=== PATIENT | female | born 1945 | race Caucasian/White ===

== ENCOUNTER 2018-10-28 04:48 | Inpatient (IN) ==
--- NOTE | 2018-10-28 04:57 | Emergency Department Note ---
Disposition Clinical Impression: Hypoxia Congestive heart failure Qualifiers: Heart failure type: unspecified Heart failure chronicity: acute Qualified Cod e(s): I50.9 - Heart failure, unspecified Disposition: Admitted As Inpatient Condition: Fair Forms: ED Satisfaction Letter General Adult HPI - General Chief complaint: ED Shortness of Breath/Dyspnea Stated complaint: low oxygen Time Seen by Provider: 10/28/18 04:53 Source: patient, EMS Limitations: no limitations Nursing Notes Reviewed: Yes Vital Signs Reviewed: Yes - History of Present Illness HPI Narrative: Patient is a 72-year-old female with past medical history including COPD, not on oxygen at home, coronary artery disease status post CABG, CHF, hypertension, history of CVA with right-sided paralysis, [place] filter, presenting to the emergency department with chief complaint of hypoxia. Patient states she was in her usual state of health. She states she typically has night sweats. This morning, her nursing staff at her [place] [facility] drenched in sweat. Oxygen saturation there was 77%. They placed the patient on 4 L of oxygen with oxygen saturation improving to 85%. EMS states patient was 88% on 4 L of oxygen here in the patient denies any shortness of breath, chest pain, lightheadedness, productive cough, fevers or chills, abdominal pain, nausea or vomiting. She states she usually has swelling in her legs. She has no acute complaints at this time. Pain Scale: 0 - Related Data Home Medications Medication Instructions Recorded Confirmed Acetaminophen [Tylenol] 325 mg PO Q4HR 03/28/15 03/28/15 Amlodipine Besylate/Benazepril 1 each PO DAILY 03/28/15 03/28/15 [Lotrel 5-10 mg Capsule] Aspirin 81 mg PO DAILY 03/28/15 03/28/15 Atorvastatin [Lipitor] 40 mg PO HS 03/28/15 03/28/15 Baclofen [Lioresal] 10 mg PO QID 03/28/15 03/28/15 Calcium Carbonate [Tums] 500 mg PO BID 03/28/15 03/28/15 Clopidogrel [Plavix] 75 mg PO DAILY 03/28/15 03/28/15 Dextromethorphan HBr/Quinidine 1 each PO BID 03/28/15 03/28/15 [Nuedexta 20-10 mg Capsule] Diltiazem HCl [Diltiazem 24Hr Cd] 180 mg PO DAILY 03/28/15 03/28/15 Ergocalciferol (VITAMIN D2) 50,000 unit PO QMONTH 03/28/15 03/28/15 [Vitamin D2 (50,000 UNIT)] Fenofibrate [Lofibra] 160 mg PO DAILY 03/28/15 03/28/15 Folic Acid 1 mg PO DAILY 03/28/15 03/28/15 Furosemide [Lasix] 60 mg PO DAILY 03/28/15 03/28/15 MOM Conc [Milk of Magnesia Conc] 30 ml PO DAILY PRN 03/28/15 03/28/15 Metformin HCl [Fortamet] 2,000 mg PO HS 03/28/15 03/28/15 Metoprolol XL (24 HR) Succ [Toprol 100 mg PO DAILY 03/28/15 03/28/15 XL] Mirabegron [Myrbetriq] 50 mg PO DAILY 03/28/15 03/28/15 Omeprazole [PriLOSEC] 20 mg PO DAILY 03/28/15 03/28/15 OxyCODONE/APAP 5/325 [Percocet 1 each PO BID 03/28/15 03/28/15 5/325] Oxybutynin Chloride [Ditropan Xl] 10 mg PO DAILY 03/28/15 03/28/15 Phenytoin ER [Dilantin] 400 mg PO HS 03/28/15 03/28/15 Potassium Chloride 20 meq PO DAILY 03/28/15 03/28/15 RisperiDONE [RisperDAL] 0.25 mg PO DAILY 03/28/15 03/28/15 [place] Oil/[place]-3 Fatty Acids 1,000 mg PO BID 03/28/15 03/28/15 [Fish Oil 500 mg Softgel] Sennosides [Senna] 8.6 mg PO DAILY PRN 03/28/15 03/28/15 Allergies Allergy/AdvReac Type Severity Reaction Status Date / Time heparin AdvReac Unknown See Verified 10/28/18 06:01 Comments All systems ED: reviewed and negative except as stated. Review of Systems: As Per HPI Constitutional: Denies: fever, chills Cardiovascular: Denies: chest pain, palpitations Respiratory: Denies: cough, dyspnea Gastrointestinal: Denies: abdominal pain, nausea, vomiting Genitourinary: Denies: dysuria, hematuria Musculoskeletal: Denies: back pain Neurological: Denies: headache, weakness, paresthesias Past Medical History - Past Medical History Attestation: Yes The following information was validated with the patient. Source: patient Medical history: Reports: CHF, coronary artery disease, CVA, DVT, diabetes, hypertension, pulmonary embolus, seizures, other Surgical history: Reports: hysterectomy, other Psychiatric history: Reports: no psych history - Social History Smoking Status: Never smoker Smokeless Tobacco Status: No Alcohol use: Reports: none Drug use: Reports: none Physical Exam - General Limitations: no limitations General appearance: alert, in no apparent distress - Head Head exam: atraumatic, normocephalic - Eye Eye exam: Present: normal appearance, EOMI - ENT ENT exam: normal exam, mucous membranes moist - Neck Neck exam: Present: normal inspection, trachea midline - Chest Chest inspection: Present: normal inspection, symmetric chest wall rise - Respiratory Respiratory exam: Present: other (Patient has diminished breath sounds bilaterally with crackles at bilateral bases. Some conversational dyspnea. Oxygen per nasal cannula) - Cardiovascular Cardiovascular exam: Present: regular rate, normal rhythm, other (bilateral radial pulses palpable and equal) - Abdominal Exam Abdominal exam: Present: soft, Non-Tender. Absent: distention, guarding, rebound, rigidity - Extremities Exam Extremities exam: Present: normal capillary refill, other (2+ bilateral lower extremity swelling to the knee, no calf tenderness) - Skin Skin exam: Present: warm, other (Wet sweaty hair). Absent: pallor Course Vital Signs Temperature 98.4 F 10/28/18 04:49 Pulse Rate 77 10/28/18 04:49 Respiratory Rate 16 10/28/18 04:49 Blood Pressure 142/72 10/28/18 04:49 O2 Sat by Pulse Oximetry 92 10/28/18 04:49 Temperature 98.4 F 10/28/18 04:49 Pulse Rate 72 10/28/18 05:30 Respiratory Rate 16 10/28/18 05:30 Blood Pressure 171/79 10/28/18 05:30 O2 Sat by Pulse Oximetry 94 10/28/18 05:30 Oxygen Delivery Oxygen Delivery Nasal Cannula Medical Decision Making - [facility] Narrative Medical decision making narrative: Patient is presenting with hypoxia from her [place] [facility]. She has no acute complaints at this time. Nontoxic appearing, afebrile. She was 77% on room air at the nursing facility. Here, she was 85% on room air. Place the patient on 3 L of oxygen per nasal cannula with oxygen saturation 91-93%. Patient appears fluid overloaded. We will obtain chest x-ray, CBC, BMP, troponin, BNP. No acute changes on EKG. 05:45 Patient states she is doing well and has no acute complaints at this time. Chest x-ray imaging results reviewed. Findings are consistent with congestive heart failure, cardiomegaly. BNP is elevated at 439. Troponin is less than 0.03. We will give her a dose of 40 mg IV Lasix. Hospitalist has been paged for admission for congestive heart failure exacerbation as well as hypoxia requiring oxygen per nasal cannula. 06:05 Discussed with hospitalist, Dr. Simon, who accepts admission. - Medical Records Medical records reviewed: Yes I reviewed the patient's medical records. - Lab Data Lab results reviewed: Yes I reviewed the patient's lab results. Result diagrams: 10/28/18 05:00 10/28/18 05:00 Lab Results 10/28/18 10/28/18 10/28/18 Range/Units 05:00 05:00 05:00 WBC 12.4 H (4.3-11.1) K/mcL RBC 4.13 (3.82-4.97) M/mcL Hgb 13.0 (11.5-15.4) g/dL Hct 41.7 (35.3-44.9) % MCV 101.0 H (83.0-100.0) fL MCH 31.5 (28.0-33.3) pg MCHC 31.2 L (31.6-35.5) g/dL RDW 12.8 (11.5-14.5) % Plt Count 331 (140-400) K/mcL MPV 9.3 L (9.4-12.4) fL Immature Gran % 0.6 (0-4) % Seg Neutrophils % 87.8 % Lymphocytes % 6.5 % Monocytes % 4.8 % Eosinophils % 0.1 % Basophils % 0.2 % Neutrophils # 10.9 H (1.6-8.9) K/mcL Lymphocytes # 0.8 (0.6-4.6) K/mcL Monocytes # 0.6 (0.0-1.3) K/mcL Eosinophils # 0.0 (0.0-0.6) K/mcL Basophils # 0.0 (0.0-0.2) K/mcL Sodium 141 (136-145) mEq/L Potassium 4.9 (3.5-5.1) mEq/L Chloride 104 (98-107) mEq/L Carbon Dioxide 30 H (23-29) mEq/L BUN 19 (8-23) mg/dL Creatinine 0.46 L (0.60-1.20) mg/dL Est GFR ( Amer) > 60 (> 60) Est GFR (Non-Af Amer) > 60 (> 60) BUN/Creatinine Ratio 41 H (6-26) Glucose 171 H (70-105) mg/dL Calculated Osmolality 298 (280-300) Calcium 9.1 (8.6-10.3) mg/dL Troponin I < 0.03 (< 0.04) ng/mL B-Natriuretic Peptide 439 H (Less than 100) pg/mL - Radiology Data Radiology results reviewed: Yes I reviewed the patient's radiology results. Chest X-Ray 10/28/18 04:53 IMPRESSION: Findings consistent with congestive heart failure. D/ / Bruno De La Cruz MD / Bruno De La Cruz MD Interpreting Provider: Bruno De La Cruz MD - EKG Data EKG #1 EKG attestation: Yes I reviewed and interpreted this EKG. EKG results narrative: EKG obtained at 0 456 shows sinus rhythm with heart rate 75, QRS duration 88, QTc 453. Normal CO interval area and no ST elevation or depression. Compared to old EKG on March 14 2015 which shows no acute changes.
[2018-10-28 05:15] LABS: Basophils % 0.2 %; Eosinophils % 0.1 %; Hematocrit 41.7 % (35.3-44.9); Immature Granulocytes % 0.6 % (0-4); Lymphocytes # 0.8 K/mcL (0.6-4.6); Lymphocytes % 6.5 %; Mean Corpuscular HGB Conc 31.2 g/dL (31.6-35.5); Mean Corpuscular Hemoglobin 31.5 pg (28.0-33.3); Mean Platelet Volume 9.3 fL (9.4-12.4); Monocytes # 0.6 K/mcL (0.0-1.3); Monocytes % 4.8 %; Neutrophils # 10.9 K/mcL (1.6-8.9); Platelet Count 331 K/mcL (140-400); Red Blood Count 4.13 M/mcL (3.82-4.97); Red Cell Distribution Width 12.8 % (11.5-14.5); Segmented Neutrophils % 87.8 %
[2018-10-28 05:34] LABS: BUN/Creatinine Ratio 41 (6-26); Blood Urea Nitrogen 19 mg/dL (8-23); Calcium 9.1 mg/dL (8.6-10.3); Carbon Dioxide 30 mEq/L (23-29); Chloride 104 mEq/L (98-107); Glucose 171 mg/dL (70-105); Osmolality,Calculated 298 (280-300); Potassium 4.9 mEq/L (3.5-5.1); Sodium 141 mEq/L (136-145); eGFR For Non-African Americans > 60 (> 60)
[2018-10-28 05:35] LABS: Troponin I < 0.03 ng/mL (< 0.04)
[2018-10-28] MEDS ORDERED: Furosemide 40 MG/4 ML VIAL IVP ONE (05:45)
--- NOTE | 2018-10-28 06:03 | Emergency Department Note ---
Disposition Clinical Impression: Hypoxia Congestive heart failure Qualifiers: Heart failure type: unspecified Heart failure chronicity: acute Qualified Cod e(s): I50.9 - Heart failure, unspecified Disposition: Admitted As Inpatient Condition: Fair Referrals: NONE,PCP [Primary Care Provider] - Forms: ED Satisfaction Letter General Adult HPI - General Chief complaint: ED Shortness of Breath/Dyspnea Stated complaint: low oxygen Time Seen by Provider: 10/28/18 04:53 Source: patient, EMS Limitations: no limitations Nursing Notes Reviewed: Yes Vital Signs Reviewed: Yes - History of Present Illness Pain Scale: 0 - Related Data Home Medications Medication Instructions Recorded Confirmed Acetaminophen [Tylenol] 325 mg PO Q4HR 03/28/15 03/28/15 Amlodipine Besylate/Benazepril 1 each PO DAILY 03/28/15 03/28/15 [Lotrel 5-10 mg Capsule] Aspirin 81 mg PO DAILY 03/28/15 03/28/15 Atorvastatin [Lipitor] 40 mg PO HS 03/28/15 03/28/15 Baclofen [Lioresal] 10 mg PO QID 03/28/15 03/28/15 Calcium Carbonate [Tums] 500 mg PO BID 03/28/15 03/28/15 Clopidogrel [Plavix] 75 mg PO DAILY 03/28/15 03/28/15 Dextromethorphan HBr/Quinidine 1 each PO BID 03/28/15 03/28/15 [Nuedexta 20-10 mg Capsule] Diltiazem HCl [Diltiazem 24Hr Cd] 180 mg PO DAILY 03/28/15 03/28/15 Ergocalciferol (VITAMIN D2) 50,000 unit PO QMONTH 03/28/15 03/28/15 [Vitamin D2 (50,000 UNIT)] Fenofibrate [Lofibra] 160 mg PO DAILY 03/28/15 03/28/15 Folic Acid 1 mg PO DAILY 03/28/15 03/28/15 Furosemide [Lasix] 60 mg PO DAILY 03/28/15 03/28/15 MOM Conc [Milk of Magnesia Conc] 30 ml PO DAILY PRN 03/28/15 03/28/15 Metformin HCl [Fortamet] 2,000 mg PO HS 03/28/15 03/28/15 Metoprolol XL (24 HR) Succ [Toprol 100 mg PO DAILY 03/28/15 03/28/15 XL] Mirabegron [Myrbetriq] 50 mg PO DAILY 03/28/15 03/28/15 Omeprazole [PriLOSEC] 20 mg PO DAILY 03/28/15 03/28/15 OxyCODONE/APAP 5/325 [Percocet 1 each PO BID 03/28/15 03/28/15 5/325] Oxybutynin Chloride [Ditropan Xl] 10 mg PO DAILY 03/28/15 03/28/15 Phenytoin ER [Dilantin] 400 mg PO HS 03/28/15 03/28/15 Potassium Chloride 20 meq PO DAILY 03/28/15 03/28/15 RisperiDONE [RisperDAL] 0.25 mg PO DAILY 03/28/15 03/28/15 [place] Oil/[place]-3 Fatty Acids 1,000 mg PO BID 03/28/15 03/28/15 [Fish Oil 500 mg Softgel] Sennosides [Senna] 8.6 mg PO DAILY PRN 03/28/15 03/28/15 Allergies Allergy/AdvReac Type Severity Reaction Status Date / Time heparin AdvReac Unknown See Verified 10/28/18 06:01 Comments Constitutional: Denies: fever, chills Cardiovascular: Denies: chest pain, palpitations Respiratory: Denies: cough, dyspnea Gastrointestinal: Denies: abdominal pain, nausea, vomiting Genitourinary: Denies: dysuria, hematuria Musculoskeletal: Denies: back pain Neurological: Denies: headache, weakness, paresthesias Past Medical History - Past Medical History Medical history: Reports: CHF, coronary artery disease, CVA, DVT, diabetes, hypertension, pulmonary embolus, seizures, other Surgical history: Reports: hysterectomy, other Psychiatric history: Reports: no psych history - Social History Smoking Status: Never smoker Smokeless Tobacco Status: No Alcohol use: Reports: none Drug use: Reports: none Physical Exam - General Limitations: no limitations General appearance: alert, in no apparent distress Course Vital Signs Temperature 98.4 F 10/28/18 04:49 Pulse Rate 77 10/28/18 04:49 Respiratory Rate 16 10/28/18 04:49 Blood Pressure 142/72 10/28/18 04:49 O2 Sat by Pulse Oximetry 92 10/28/18 04:49 Temperature 98.4 F 10/28/18 04:49 Pulse Rate 70 10/28/18 06:00 Respiratory Rate 18 10/28/18 06:00 Blood Pressure 169/71 10/28/18 06:00 O2 Sat by Pulse Oximetry 92 10/28/18 06:00 Oxygen Delivery Oxygen Delivery Nasal Cannula Medical Decision Making - Medical Records Medical records reviewed: Yes I reviewed the patient's medical records. - Lab Data Lab results reviewed: Yes I reviewed the patient's lab results. Result diagrams: 10/28/18 05:00 10/28/18 05:00 Lab Results 10/28/18 10/28/18 10/28/18 Range/Units 05:00 05:00 05:00 WBC 12.4 H (4.3-11.1) K/mcL RBC 4.13 (3.82-4.97) M/mcL Hgb 13.0 (11.5-15.4) g/dL Hct 41.7 (35.3-44.9) % MCV 101.0 H (83.0-100.0) fL MCH 31.5 (28.0-33.3) pg MCHC 31.2 L (31.6-35.5) g/dL RDW 12.8 (11.5-14.5) % Plt Count 331 (140-400) K/mcL MPV 9.3 L (9.4-12.4) fL Immature Gran % 0.6 (0-4) % Seg Neutrophils % 87.8 % Lymphocytes % 6.5 % Monocytes % 4.8 % Eosinophils % 0.1 % Basophils % 0.2 % Neutrophils # 10.9 H (1.6-8.9) K/mcL Lymphocytes # 0.8 (0.6-4.6) K/mcL Monocytes # 0.6 (0.0-1.3) K/mcL Eosinophils # 0.0 (0.0-0.6) K/mcL Basophils # 0.0 (0.0-0.2) K/mcL Sodium 141 (136-145) mEq/L Potassium 4.9 (3.5-5.1) mEq/L Chloride 104 (98-107) mEq/L Carbon Dioxide 30 H (23-29) mEq/L BUN 19 (8-23) mg/dL Creatinine 0.46 L (0.60-1.20) mg/dL Est GFR ( Amer) > 60 (> 60) Est GFR (Non-Af Amer) > 60 (> 60) BUN/Creatinine Ratio 41 H (6-26) Glucose 171 H (70-105) mg/dL Calculated Osmolality 298 (280-300) Calcium 9.1 (8.6-10.3) mg/dL Troponin I < 0.03 (< 0.04) ng/mL B-Natriuretic Peptide 439 H (Less than 100) pg/mL - Radiology Data Radiology results reviewed: Yes I reviewed the patient's radiology results. Chest X-Ray 10/28/18 04:53 IMPRESSION: Findings consistent with congestive heart failure. D/ / Bruno De La Cruz MD / Bruno De La Cruz MD Interpreting Provider: Bruno De La Cruz MD - EKG Data EKG #1 EKG attestation: Yes I reviewed and interpreted this EKG. EKG results narrative: EKG shows a normal sinus rhythm with ventricular rate is 75. No ST segment elevation or depression. No arrhythmia or ectopy. Critical Care Time Critical Care Time: Yes Total Critical Care Time: 35 Attestation: Critical care performed: Time is exclusive of separately billable procedures. Time includes: direct patient care, patient reassessment, coordination of patient care, interpretation of data (laboratory data, radiology data, and respiratory data), review of patient's medical records, medical consultation and documentation of patient care. Procedures included in critical care time: Procedures excluded from critical care time: Attestation Statement - Attestation Attestation: IBrayan MD, personally evaluated this patient and discussed their management with the resident physician. I reviewed the resident's note and agree with the documented findings, medical decision making, and plan of care. 72-year-old female presents to the emergency department by EMS [facility] for hypoxia. long term reported that they found the patient diaphoretic and her oxygen saturation was 77% on room air. They placed her on oxygen by nasal cannula and she came up to 85%. Patient has a history of COPD as well as CHF. She denies feeling short of breath. She denies any chest pain. She states that she always has night sweats. Patient does not normally wear oxygen. On examination patient is a well-developed well-nourished elderly female in no acute distress. She is alert and oriented 3. There is no cyanosis. Patient i s mildly diaphoretic. Chest is nontender to palpation. Breath sounds are equal bilaterally with bibasilar rales. No wheezes. Heart regular rate and rhythm. Abdomen soft and nontender with normal bowel sounds. 2+ pitting edema of the lower extremities bilaterally. EKG shows a normal sinus rhythm with ventricular rate of 75. No ST segment elevation or depression. No arrhythmia or ectopy. Chest x-ray consistent with CHF. Labs reviewed. BNP 439. Patient received Lasix 40 mg IV. The hospitalist, Dr. Simon, was consulted and accepted admission of the patient. I reviewed the residents documentation and agree with the residents assessment and plan of care. I have personally had face to face time with the patient. I personally supervised and was present for the briceño/critical portions of the following procedures completed by the resident: EKG interpretation.
[2018-10-28] MEDS ORDERED: Naloxone 0.4 MG/ML INJ IVP PRN (07:13)
[2018-10-28] MEDS ORDERED: Sennosides 8.6 MG TABLET PO PRN (07:14)
[2018-10-28] MEDS ORDERED: *HR* Dextrose 50 % in Water (Syg) 50 ML SYRINGE IVP PRN (07:44)
[2018-10-28] MEDS ORDERED: Dextrose Gel 15 GM/37.5 ML TUBE PO PRN ×2 (07:44)
[2018-10-28] MEDS ORDERED: D5% in Water 1,000 ML IVC PRN (07:44)
--- NOTE | 2018-10-28 07:51 | Internal Med History&Physical ---
Date of Encounter: 10/28/18 Time of Encounter: 07:45 Internal Medicine - H&P: HPI Chief complaint: Shortness of breath this am, coughing for a couple of days History of present illness: Ms. Means is a 72 year old female with pmh of CHF, COPD, diabetes, CVA, hypertension presenting with complaints of shortness of breath at the group home today. Patient says she has been short of breath for a couple of days now, and has had intermittent productive coughing and wheezing. She denies any fevers or chills or chest pain. She admits to lower extremity swelling and wo rsening abdominal distention for the last couple of days as well. This am, she woke and was very short of breath, the group home staff took her oxygen saturation and noted it was in the 70s. They put her on 3L of oxygen and could only get her sats up to 85% and therefore sent her to the ER. In the ER, she had a chest xray done showing pulmonary edema and she was given one dose of lasix and is being admitted for further management Past Med Surg Social Fam HX - Past Medical History Medical history: CHF, coronary artery disease, CVA, DVT, diabetes, hypertension, pulmonary embolus, seizures, other Additional medical history: right hemipareisis, hyperglycemia, neurologic deficit (right side), right arm pain, thrombocytopenia-heparin, artherosclerotic cardiovascular disease(ASCVD), anemia Psychiatric history: no psych history - Past Surgical History Surgical History: hysterectomy, other Additional surgical history: heart cath, ivc filter placement, EGD/colonoscopy - Social History Smoking Status: Never smoker Smokeless Tobacco Status: No Alcohol use: none Drug use: none Internal Medicine - H&P: Meds Acetaminophen [Pain Relief] 650 mg PO Q4H PRN 10/28/18 [History] Amlodipine Besylate/Benazepril [Lotrel 5-10 mg Capsule] 1 each PO DAILY 10/28/18 [History] Aspirin [Lo-Dose Aspirin EC] 81 mg PO DAILY 10/28/18 [History] Atorvastatin Calcium [Lipitor] 40 mg PO DAILY 10/28/18 [History] Baclofen [Lioresal] 10 mg PO QID 10/28/18 [History] Calcium Carbonate/Magnesium Ox [Oyster Shell Calcium-Magnes Tb] 1 each PO BID 10/28/18 [History] Chlorpheniramine/Dextromethorp [Coricidin Hbp Cough & Cold Tab] 1 each PO Q4H PRN 10/28/18 [History] Cholecalciferol (Vitamin D3) [Vitamin D] 50,000 unit PO DAILY 10/28/18 [History] Clopidogrel [Plavix] 75 mg PO DAILY 10/28/18 [History] Dextran 70/Hypromellose [Artificial Tears] 1 drop BOTH EYES BID 10/28/18 [History] Dextromethorphan HBr/Quinidine [Nuedexta 20-10 mg Capsule] 1 each PO BID 10/28/18 [History] Fenofibrate Nanocrystallized [Fenofibrate] 160 mg PO DAILY 10/28/18 [History] Folic Acid 1 mg PO DAILY 10/28/18 [History] Furosemide [Lasix] 20 mg PO DAILY 10/28/18 [History] Furosemide [Lasix] 40 mg PO DAILY 10/28/18 [History] Glucagon,Human Recombinant [Glucagen] 1 mg IJ PRN PRN 10/28/18 [History] MOM Conc [Milk of Magnesia Conc] 30 ml PO DAILY PRN 10/28/18 [History] Magnesium Hydroxide/Al Hydrox [Mag-Al Liquid] 30 ml PO DAILY PRN 10/28/18 [History] Melatonin 5 mg PO HS PRN 10/28/18 [History] Metoprolol Succinate [Kapspargo Sprinkle] 100 mg PO DAILY 10/28/18 [History] Mirabegron [Myrbetriq] 50 mg PO DAILY 10/28/18 [History] Nystatin Cream [Mycostatin Cream] 1 appl TP TID 10/28/18 [History] Dupo-3/Dha/Epa/Fish Oil [Cvs Fish Oil 1,000 mg Softgel] 1 each PO DAILY 10/28/18 [History] OxyCODONE/APAP 5/325 [Percocet 5/325 MG] 1 each PO BID 10/28/18 [History] Oxybutynin Chloride [Ditropan Xl] 5 mg PO DAILY 10/28/18 [History] Pantoprazole Sodium 20 mg PO HS 10/28/18 [History] Phenytoin Sodium Extended [Phenytek] 400 mg PO HS 10/28/18 [History] Potassium Chloride [K-Tab ER] 20 meq PO DAILY 10/28/18 [History] Sennosides [Senna] 8.6 mg PO DAILY PRN 10/28/18 [History] dilTIAZem HCl [Diltiazem 24Hr Cd] 180 mg PO DAILY 10/28/18 [History] metFORMIN [Glucophage] 2,000 mg PO 0800 10/28/18 [History] Allergy/AdvReac Type Severity Reaction Status Date / Time heparin AdvReac Unknown See Verified 10/28/18 06:01 Comments All Systems PM: A 10-system review of systems was performed and is negative for pertinent findings except as documented above in the HPI. - Constitutional Constitutional: no chills, no fever(s), no night sweats - EENT Eyes: no change in vision, no discharge, no pain, no photophobia Ears: no ear discharge, no ear pain, no tinnitus Nose, mouth and throat: no dysphagia, no nasal discharge, no neck pain, no sore throat - Cardiovascular Cardiovascular ROS IM: no chest pain, no diaphoresis, no dyspnea, no lightheadedness, no palpitations, no syncope - Respiratory Respiratory: cough, dyspnea, wheezing, excessive phlegm production - Gastrointestinal Gastrointestinal: no abdominal pain, no diarrhea, no hematemesis, no hematochezia, no melena, no nausea, no vomiting - Genitourinary Genitourinary: no change in urinary stream, no dysuria, no flank pain, no hematuria - Musculoskeletal Musculoskeletal ROS IM: no numbness, no tingling - Integumentary Integumentary IM: no rash, no unusual bruising - Neurological Neurological ROS: no confusion, no convulsions, no focal weakness, no numbness, no tingling, no tremor(s) - Hematologic/Lymphatic Hematologic/Lymphatic: no easy bruising - Constitutional Vitals: Temp Pulse Resp BP Pulse Ox 98.4 F 70 17 171/78 92 10/28/18 04:49 10/28/18 06:00 10/28/18 07:00 10/28/18 07:00 10/28/18 06:00 Exam: NAD - Head Head exam: Present: atraumatic, normocephalic - Eye Eye exam: Present: PERRL, conjuntiva pink, sclera anicteric Pupils: Present: PERRL - Neck Neck exam general surgery: Present: supple, trachea midline. Absent: lymphadenopathy - Respiratory Respiratory exam: Present: decreased breath sounds, wheezes. Absent: accessory muscle use, rales, rhonchi - Cardiovascular Cardiovascular exam: Present: RRR, +S1, +S2. Absent: diastolic murmur, gallop, rubs, systolic murmur - GI/Abdominal GI/Abdominal exam: Present: normal bowel sounds, soft, no peritoneal signs. Absent: distended, tenderness - Extremities Exam Extremities exam: Present: warm, radial pulses palpable and symmetrical. Absent: calf tenderness, cyanotic, pedal edema - Neurological Exam Neurological exam: Present: CN II-XII intact, oriented X3, no focal deficits. Absent: pronater drift, facial droop, speech deficit - Skin Skin exam: Present: dry, intact Internal Med - H&P Results - Labs CBC & Chem 7: 10/28/18 05:00 10/28/18 05:00 Labs: Short CBC 10/28/18 Range/Units 05:00 WBC 12.4 H (4.3-11.1) K/mcL Hgb 13.0 (11.5-15.4) g/dL Hct 41.7 (35.3-44.9) % Plt Count 331 (140-400) K/mcL Neutrophils # 10.9 H (1.6-8.9) K/mcL BMP 10/28/18 05:00 Sodium 141 Potassium 4.9 Chloride 104 Carbon Dioxide 30 H BUN 19 Creatinine 0.46 L Glucose 171 H Calcium 9.1 Cardiac Enzymes 10/28/18 Range/Units 05:00 Troponin I < 0.03 (< 0.04) ng/mL - Impressions ITS Impressions Chest X-Ray 10/28/18 04:53 IMPRESSION: Findings consistent with congestive heart failure. D/ / Bruno De La Cruz MD / Bruno De La Cruz MD Interpreting Provider: Bruno De La Cruz MD - Assessment and Plan (1) Acute respiratory failure with hypoxia Current Visit: Yes Status: Acute Assessment and plan: Pt comes in with shortness of breath and hypoxic respiratory failure to the 70s due to Acute CHF and COPD exacerbation CXR shows findings consistent with CHF Will start on lasix, nebs, steroids and antibiotics. Place on BIPAP (2) Congestive heart failure Current Visit: Yes Status: Acute Assessment and plan: Has lower extremity edema and pulmonary edema with shortness of breath. No previous echos to determine EF Obtain 2D echo. Continue BID lasix Qualifiers: Heart failure type: unspecified Heart failure chronicity: acute Qualified Code(s): I50.9 - Heart failure, unspecified (3) COPD exacerbation Current Visit: Yes Status: Acute Assessment and plan: Start on nebs, steroids and antibiotics Place on BIPAP (4) Abdominal swelling Current Visit: Yes Status: Acute Assessment and plan: Has abdominal swelling possibly 2/2 to CHF vs liver disease Obtain LFTs, CT abdomen (5) Diabetes Current Visit: Yes Status: Acute Assessment and plan: Continue insulin and monitor fingersticks Qualifiers: Qualified Code(s): E11.9 - Type 2 diabetes mellitus without complications (6) Hypertension Current Visit: Yes Status: Acute Assessment and plan: Continue home meds Qualifiers: Qualified Code(s): I10 - Essential (primary) hypertension (7) Dyslipidemia Current Visit: Yes Status: Acute Assessment and plan: Continue statin (8) DVT prophylaxis Current Visit: Yes Status: Acute Assessment and plan: SCD - Time Spent With Patient Total time spent is greater than 50% in coordination of care (as documented) at patient's floor/unit and/or counseling patient:
[2018-10-28] MEDS: Ipratropium/Albuterol Neb 3 ML IH SCH ×4 (08:07→20:29)
[2018-10-28] MEDS: Budesonide/Formoterol 160/4.5 1 PUFF INH IH SCH ×2 (08:08→20:29)
[2018-10-28] MEDS: Metoprolol XL (24 HR) Succ 50 MG TAB.ER.24H PO SCH (09:14)
[2018-10-28] MEDS: Aspirin Enteric Coated 81 MG Tablet PO SCH (09:14)
[2018-10-28] MEDS: Diltiazem CD (24hr) 180 MG CAPSULE PO SCH (09:14)
[2018-10-28] MEDS: Fenofibrate 54 MG TABLET PO SCH (09:15)
[2018-10-28] MEDS: Folic Acid 1 MG TABLET PO SCH (09:15)
[2018-10-28] MEDS: amLODIPine 5 MG TABLET PO SCH (09:15)
[2018-10-28] MEDS: (Mirabegron [Myrbetriq] 50 MG) PO SCH (09:19)
[2018-10-28 10:06] LABS: Albumin 4.1 g/dL (3.5-5.7); Albumin/Globulin Ratio 1.6 (1.1-2.2); Bilirubin,Direct 0.1 mg/dL (0.0-0.2); Bilirubin,Indirect 0.1 mg/dL (0.0-1.2); Bilirubin,Total 0.2 mg/dL (0.3-1.0); Globulin 2.6 g/dL (2.4-3.5); Total Protein 6.7 g/dL (6.4-8.9)
[2018-10-28] MEDS: Baclofen 10 MG TABLET PO SCH ×4 (10:56→20:56)
[2018-10-28] MEDS: MethylPREDNISolone 40 MG/ML VIAL IVP SCH ×2 (10:57→18:17)
[2018-10-28] MEDS: Artificial Tears SOLN 15 ML BOTTLE BOTH EYES SCH ×2 (10:57→21:05)
[2018-10-28] MEDS: Azithromycin 500 MG in D5% in Water 250 ML IVPB SCH (10:57)
[2018-10-28] MEDS: Insulin LISPRO 300 UNITS/3 ML VIAL SQ SCH ×2 (12:35→18:18)
[2018-10-28] MEDS ORDERED: Ondansetron 4 MG/2 ML VIAL IVP PRN (13:49)
[2018-10-28] MEDS: Furosemide 40 MG/4 ML VIAL IVP SCH (18:17)
[2018-10-28] MEDS: Cholecalciferol (D-3) 1,000 UNIT TABLET PO SCH (18:17)
[2018-10-29] MEDS: Ipratropium/Albuterol Neb 3 ML IH SCH ×7 (00:15→23:57)
[2018-10-29] MEDS: Nystatin POWDER 30 GM BOTTLE TP SCH ×4 (00:32→21:24)
[2018-10-29] MEDS: MethylPREDNISolone 40 MG/ML VIAL IVP SCH ×2 (00:32→09:02)
[2018-10-29] MEDS ORDERED: Furosemide 20 MG/2 ML VIAL IVP ONE (04:45)
[2018-10-29 07:18] LABS: Basophils % 0.1 %; Hematocrit 41.1 % (35.3-44.9); Hemoglobin 12.8 g/dL (11.5-15.4); Immature Granulocytes % 0.5 % (0-4); Lymphocytes # 1.6 K/mcL (0.6-4.6); Lymphocytes % 12.4 %; Mean Corpuscular HGB Conc 31.1 g/dL (31.6-35.5); Mean Corpuscular Hemoglobin 31.6 pg (28.0-33.3); Mean Corpuscular Volume 101.5 fL (83.0-100.0); Mean Platelet Volume 9.4 fL (9.4-12.4); Monocytes % 7.5 %; Neutrophils # 10.2 K/mcL (1.6-8.9); Platelet Count 300 K/mcL (140-400); Red Blood Count 4.05 M/mcL (3.82-4.97); Red Cell Distribution Width 12.6 % (11.5-14.5); Segmented Neutrophils % 79.5 %
[2018-10-29] MEDS: Budesonide/Formoterol 160/4.5 1 PUFF INH IH SCH ×2 (07:22→19:58)
[2018-10-29 07:38] LABS: BUN/Creatinine Ratio 45 (6-26); Blood Urea Nitrogen 21 mg/dL (8-23); Calcium 9.1 mg/dL (8.6-10.3); Carbon Dioxide 37 mEq/L (23-29); Chloride 101 mEq/L (98-107); Glucose 161 mg/dL (70-105); Magnesium 1.8 mg/dL (1.6-2.6); Osmolality,Calculated 298 (280-300); Phosphorous 4.3 mg/dL (2.7-4.5); Potassium 4.7 mEq/L (3.5-5.1); Sodium 141 mEq/L (136-145); eGFR For Non-African Americans > 60 (> 60)
[2018-10-29] MEDS: Insulin LISPRO 300 UNITS/3 ML VIAL SQ SCH ×3 (08:25→16:53)
[2018-10-29] MEDS: Aspirin Enteric Coated 81 MG Tablet PO SCH (09:01)
[2018-10-29] MEDS: Cholecalciferol (D-3) 1,000 UNIT TABLET PO SCH (09:01)
[2018-10-29] MEDS: Baclofen 10 MG TABLET PO SCH ×4 (09:01→21:24)
[2018-10-29] MEDS: amLODIPine 5 MG TABLET PO SCH (09:01)
[2018-10-29] MEDS: Metoprolol XL (24 HR) Succ 50 MG TAB.ER.24H PO SCH (09:01)
[2018-10-29] MEDS: Diltiazem CD (24hr) 180 MG CAPSULE PO SCH (09:01)
[2018-10-29] MEDS: Fenofibrate 54 MG TABLET PO SCH (09:02)
[2018-10-29] MEDS: Azithromycin 500 MG in D5% in Water 250 ML IVPB SCH ×2 (09:02→09:23)
[2018-10-29] MEDS: Artificial Tears SOLN 15 ML BOTTLE BOTH EYES SCH ×2 (09:02→21:24)
[2018-10-29] MEDS: Folic Acid 1 MG TABLET PO SCH (09:02)
[2018-10-29] MEDS: Furosemide 40 MG/4 ML VIAL IVP SCH ×2 (09:03→16:52)
[2018-10-29] MEDS: (Mirabegron [Myrbetriq] 50 MG) PO SCH (09:23)
--- NOTE | 2018-10-29 09:39 | Internal Med Progress Note ---
Hospitalist Progress Note - Encounter Date of Encounter: 10/29/18 Time of Encounter: 09:04 - Subjective Interval History: Patient seen and examined this morning at bedside. No acute overnight events. Breathing much improved. Denies any chest pain. Denies any other complain. denies Abdominal pain. Has purevic catheter as she is incontinent. - Exam Vitals: Temp Pulse Resp BP Pulse Ox 98.0 F 65 16 141/86 96 10/29/18 08:07 10/29/18 08:07 10/29/18 08:07 10/29/18 08:07 10/29/18 08:07 Exam: General: In no acute distress. Respiratory exam: no accessory muscle use. Crackle at base Cardiovascular exam: RRR, +S1, +S2. no murmur, gallop, rubs. GI/Abdominal exam: Non-tender, Non-distended, soft, no peritoneal signs. Extremities exam: 2+ pedal edema, pulses palpable in b/l lower extremities. no calf tenderness, Lt arm slighly enlarged Neurological exam: CN II-XII intact, AO X3, no focal deficits. Skin exam: cold extremities - Assessment and Plan (1) Congestive heart failure Current Visit: Yes Status: Acute (2) Acute respiratory failure with hypoxia Current Visit: Yes Status: Acute (3) COPD exacerbation Current Visit: Yes Status: Acute (4) Diabetes Current Visit: Yes Status: Acute (5) Hypertension Current Visit: Yes Status: Acute (6) Dyslipidemia Current Visit: Yes Status: Acute (7) DVT prophylaxis Current Visit: Yes Status: Acute (8) Abdominal swelling Current Visit: Yes Status: Acute - Summary of Assessment and Plan Summary of Assessment and Plan: Assessment Acute respiratory failure with hypoxia Lt arm swelling CHF COPD exacerbation Diabetes Hypertension HLD h/o CAD s/p CABG h/o CVA with residual weakness Plan - Likely due to Acute CHF as chest x-ray with congestion and elevated BNP. Does not appear to have COPD exacerbation. No PFT report or diagnosed copd or home oxygen use . We will stop steroids and antibiotics. - Chest x-ray does show some infiltrate is could be atelectasis versus pneumonia however no significant sputum production, fever and significant improvement of shortness of breath with Lasix. Will monitor off antibiotics - c/w lasix 40 twice a day IV. Monitor renal function and urine output. c/w nebs, Symbicort, prn BIPAP. Fluid and salt restriction. - Follow-up echo - Currently denies any abdominal pain. CT abdomen with diverticulosis cholelithiasis - Continue home antihypertensives, statin and beta inocencia - Sliding scale insulin with Accu-Cheks. f/u a1c - SCD for DVT prophylaxis. f/u dVT study for Lt arm swelling - Discussed CODE STATUS. Patient wants DNR CCA - Time Spent with Patient Total time spent is greater than 50% in coordination of care (as documented) at patient's floor/unit and/or counseling patient: Internal Medicine: Result - Labs CBC & Chem 7: 10/29/18 06:54 10/29/18 06:54 Labs: Short CBC 10/29/18 Range/Units 06:54 WBC 12.8 H (4.3-11.1) K/mcL Hgb 12.8 (11.5-15.4) g/dL Hct 41.1 (35.3-44.9) % Plt Count 300 (140-400) K/mcL Neutrophils # 10.2 H (1.6-8.9) K/mcL BMP 10/29/18 06:54 Sodium 141 Potassium 4.7 Chloride 101 Carbon Dioxide 37 H BUN 21 Creatinine 0.47 L Glucose 161 H Calcium 9.1 Liver Function 10/28/18 Range/Units 09:21 Total Bilirubin 0.2 L (0.3-1.0) mg/dL Direct Bilirubin 0.1 (0.0-0.2) mg/dL AST 21 (13-39) Units/L ALT 20 (7-52) Units/L Alkaline Phosphatase 83 (34-104) Units/L Albumin 4.1 (3.5-5.7) g/dL - Impressions Impressions Abdomen/Pelvis CT 10/28/18 07:42 IMPRESSION: 1. Diverticulosis. 2. Cholelithiasis. 3. Bilateral pleural effusions with lower lobe and lingular atelectasis or infiltrate. D/ / 10/28/2018 10:51:40 Esvin Diaz MD / [facility] Interpreting Provider: Esvin Diaz MD Chest X-Ray 10/28/18 16:42 IMPRESSION: Bilateral airspace disease likely representing edema. D/ / Deepthi Kapadia Cha, MD / Deepthi Kapadia Cha, MD Interpreting Provider: Deepthi Kapadia Cha, MD Consult Discharge Plan - Plan Referrals: NONE,PCP [Primary Care Provider] - (1) Congestive heart failure Qualifiers: Heart failure type: unspecified Heart failure chronicity: acute Qualified Code(s): I50.9 - Heart failure, unspecified (4) Diabetes Qualifiers: Qualified Code(s): E11.9 - Type 2 diabetes mellitus without complications (5) Hypertension Qualifiers: Qualified Code(s): I10 - Essential (primary) hypertension
[2018-10-29 11:52] LABS: Estimated Average Glucose 137 mg/dl; Hemoglobin A1C 6.4 %
--- NOTE | 2018-10-29 14:24 | Electrocardiograph Report ---
[address] [address] Test Date: 2018-10-28 Pat Name: Amber Means Department: EXAM4 Room: 2NE27 Gender: F Welfare Investigator: : 1945 Requested By: Rachele Cortez Order Number: [id number] Reading MD: Reggie Garcia Measurements Intervals [place] Rate: 75 P: 46 [place]: 35 QRS: 71 QRSD: 88 T: 12 QT: 405 QTc: 453 Interpretive Statements Sinus rhythm Nonspecific ST-T changes Electronically Signed On 10-29-2018 14:23:28 EDT by Reggie Garcia
[2018-10-30] MEDS: Ipratropium/Albuterol Neb 3 ML IH SCH (03:46)
[2018-10-30] MEDS ORDERED: *HR* Metoprolol 5 MG/5 ML VIAL IVP ONE (05:48)
--- NOTE | 2018-10-30 06:31 | Event Note ---
Date of Encounter: 10/29/18 Time of Encounter: 23:35 Alerted by pts. nurse LELE Baxter that the pt. had gone from sinus rhythm into Afib RVR. Pt. takes PO Cardizem and metoprolol as home meds. No documented hx of Afib. Only anticoagulation is 81 mg ASA daily. Nurse reported HR 130s to 150s and sustaining. Stat EKG ordered which confirmed Afib w/RVR. Cardizem gtt ordered at 23:45 to start at 2.5. PO Cardizem held for now. Checked on pt. several hours later who was still in Afib RVR w/HR in 120s. Cardizem gtt at the time was at 10. One-time dose of metoprolol 5 mg IVP ordered at 05:48. Alerted by nurse that she had been alerted by telemetry at 06:08 that the pt. had an approx. 7 second pause and converted to sinus rhythm. Pt. was asymptomatic and sleeping at the time. HR now high 50s and Cardizem gtt stopped. Nurse instructed to continue monitoring the pt. very closely and alert me immediately of any adverse changes.
[2018-10-30] MEDS ORDERED: Levalbuterol Neb 0.63 MG/3 ML IH PRN (06:48)
[2018-10-30] MEDS: Budesonide/Formoterol 160/4.5 1 PUFF INH IH SCH ×2 (08:06→20:48)
[2018-10-30 09:00] LABS: BUN/Creatinine Ratio 58 (6-26); Blood Urea Nitrogen 22 mg/dL (8-23); Calcium 9.2 mg/dL (8.6-10.3); Carbon Dioxide 37 mEq/L (23-29); Chloride 99 mEq/L (98-107); Glucose 147 mg/dL (70-105); Osmolality,Calculated 294 (280-300); Potassium 4.3 mEq/L (3.5-5.1); Sodium 139 mEq/L (136-145); eGFR For Non-African Americans > 60 (> 60)
[2018-10-30] MEDS: (Mirabegron [Myrbetriq] 50 MG) PO SCH (09:19)
[2018-10-30] MEDS: Insulin LISPRO 300 UNITS/3 ML VIAL SQ SCH ×3 (09:19→17:42)
[2018-10-30] MEDS: Cholecalciferol (D-3) 1,000 UNIT TABLET PO SCH (09:24)
[2018-10-30] MEDS: Folic Acid 1 MG TABLET PO SCH (09:24)
[2018-10-30] MEDS: Fenofibrate 54 MG TABLET PO SCH (09:24)
[2018-10-30] MEDS: Baclofen 10 MG TABLET PO SCH ×4 (09:24→20:10)
[2018-10-30] MEDS: Aspirin Enteric Coated 81 MG Tablet PO SCH (09:24)
[2018-10-30] MEDS: amLODIPine 5 MG TABLET PO SCH (09:24)
[2018-10-30] MEDS: Artificial Tears SOLN 15 ML BOTTLE BOTH EYES SCH ×2 (09:25→20:14)
[2018-10-30] MEDS: Furosemide 40 MG/4 ML VIAL IVP SCH ×2 (09:25→16:45)
[2018-10-30] MEDS: Nystatin POWDER 30 GM BOTTLE TP SCH ×3 (09:25→20:14)
--- NOTE | 2018-10-30 10:39 | Cardiology Consult Note ---
Date of Encounter: 10/30/18 Time of Encounter: 10:35 Assessment and Plan (1) New onset atrial fibrillation Current Visit: Yes Status: Acute Per Cardiology: Developed apparent new onset, asymtomatic A. fib with RVR this am. Denies any known hx. Was started on Cardizem drip. Also, received IV Lopressor 5 mg x 1 this am. assisted medications: Toprol-XL 100 mg (received yesterday) and Cardizem CD 240 mg by mouth daily. Both meds now on hold due to pause this am. Telemetry reviewed with average heart rate 88 past 24 hours, A. fib noted, 1 pause of 7.4 seconds noted. Currently sinus rhythm in the 80s. Will check TSH. Electrolytes stable. Troponin negative. Chest pain-free. Has past intolerance to heparin-- HIT. Had been on Coumadin in the past-- hx of DVT; ?PE. Discussed and reviewed with Dr. Bustamante, we will proceed with sotalol 80 mg by tyrone th every 12 hours in attempt to maintain sinus rhythm. 7.4 second pause occurred with conversion from A. fib to sinus. Current ECG showed QTC 448 ms. Calcium channel inocencia and beta inocencia remain on hold. Will increase lisinopril for blood pressure optimization. Regarding long-term anticoagul ation, will continue aspirin, discontinue Plavix, initial plans were for DOAC, however on Dilantin, will proceed with Coumadin with target INR 2.0-3.0. H&H stable. (2) CAD (coronary artery disease) Current Visit: Yes Status: Chronic Per Cardiology: Troponin negative 1. History of CAD with CABG 4 in 2009. On asa, statin, Plav ix, ACEI. BB on hold currently. Qualifiers: Coronary Disease-Associated Artery/Lesion type: [place] artery [place] vs. transplanted heart: [place] heart Associated angina: without angina Qualified Code(s): I25.10 - Atherosclerotic heart disease of [place] coronary artery without angina pectoris (3) Congestive heart failure Current Visit: Yes Status: Acute Per Cardiology: CXR showed CHF, BNP 439. On IV Lasix 40mg BID. Net I&O -1458ml. Echo: Impressions: LVEF 65%. Normal LV chamber size and function. Mild concentric left ventricular hypertrophy. Moderate left ventricular diastolic dysfunction. Atypical septal motion consistent with post-operative status. Right ventricle was not well visualized. Grossly, it is normal in function. Severe pulmonary hypertension. No significant valvular dysfunction. Left Ventricular Wall Motion: Rest Echo Findings All wall segments showed normal motion. We will implement daily weights, strict I&O, 1.5 L fluid restriction. Qualifiers: Heart failure type: diastolic Heart failure chronicity: acute Qualified Code(s): I50.31 - Acute diastolic (congestive) heart failure Discussion w patient/family: The assessment and plan as outlined above was discussed with the patient and/or family members who expressed understanding and agreement. All questions were answered. Thank you for involving us in the care of your patient. Please call with any questions. History of Present Illness Consult date: 10/30/18 Requesting physician: Isabella Peoples Consult reason: New onset afib RVR Chief complaint: SOB History of present illness: Ms. Means is a 72 year old female relevant past medical history of HTN, HLD, GERD, DM 2, seizure disorder, history of DVTs and PE with [place] filter, history of CVA with residual right-sided weakness, CAD with CABG x 4 2009. Of note patient is DNR/CCA. Cardiology consult for apparent new onset A. fib with RVR. Patient presented from long-term with increased shortness of breath and abdominal distention over the past few days. Reports shortness of breath and abdominal distention has improved during hospital stay. She denied any palpitations during atrial fibrillation with RVR. She denies any short of breath or chest pain with episode. Patient reports she was unaware her heart was out of rhythm. She denies any past history of atrial fib ablation. Currently resides in long-term with right-sided request from CVA around 2009. She reports past history of being on Coumadin, currently not taking. 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 She denies any current active bleeding or blood loss. She denies any fever, chills, nausea, vomiting, diarrhea. Past Med Surg Social Fam HX - Past Medical History Attestation: Yes The following information was validated with the patient. Source: patient, old records reviewed Medical history: CHF, coronary artery disease, CVA, DVT, diabetes, hypertension, pulmonary embolus, seizures, other Additional medical history: right hemipareisis, hyperglycemia, neurologic deficit (right side), right arm pain, thrombocytopenia-heparin, artherosclerotic cardiovascular disease(ASCVD), anemia Psychiatric history: no psych history - Past Surgical History Surgical History: coronary bypass (CABG), hysterectomy, IVC filter Additional surgical history: heart cath, ivc filter placement, EGD/colonoscopy - Social History Smoking Status: Never smoker Smokeless Tobacco Status: No Alcohol use: none Drug use: none Medications and Allergies Acetaminophen [Pain Relief] 650 mg PO Q4H PRN 10/28/18 [History] Amlodipine Besylate/Benazepril [Lotrel 10-20 mg Capsule] 1 each PO DAILY 10/28/18 [History] Aspirin [Adult Aspirin] 81 mg PO DAILY 10/28/18 [History] Atorvastatin [Lipitor] 40 mg PO HS 10/28/18 [History] Baclofen [Lioresal] 10 mg PO QID 10/28/18 [History] Calcium Carbonate/Magnesium Ox [Oyster Shell Calcium-Magnes Tb] 1 each PO BID 10/28/18 [History] Chlorpheniramine/Dextromethorp [Coricidin Hbp Cough & Cold Tab] 1 each PO Q4H PRN 10/28/18 [History] Cholecalciferol (Vitamin D3) [Vitamin D] 50,000 unit PO DAILY 10/28/18 [History] Clopidogrel [Plavix] 75 mg PO DAILY 10/28/18 [History] Dextromethorphan HBr/Quinidine [Nuedexta 20-10 mg Capsule] 1 each PO BID 10/28/18 [History] Fenofibrate Nanocrystallized [Fenofibrate] 160 mg PO DAILY 10/28/18 [History] Folic Acid 1 mg PO DAILY 10/28/18 [History] Furosemide [Lasix] 20 mg PO DAILY 10/28/18 [History] Furosemide [Lasix] 40 mg PO DAILY 10/28/18 [History] Glucagon,Human Recombinant [Glucagen] 1 mg IJ PRN PRN 10/28/18 [History] MOM Conc [Milk of Magnesia Conc] 30 ml PO DAILY PRN 10/28/18 [History] Magnesium Hydroxide/Al Hydrox [Mag-Al Liquid] 30 ml PO DAILY PRN 10/28/18 [History] Melatonin 5 mg PO HS PRN 10/28/18 [History] Metoprolol Succinate [[place] Sprinkle] 100 mg PO DAILY 10/28/18 [History] Mirabegron [Myrbetriq] 50 mg PO DAILY 10/28/18 [History] [place]-3/Dha/Epa/Fish Oil [Cvs Fish Oil 1,000 mg Softgel] 1 each PO DAILY 10/18 07/08 [History] OxyCODONE/APAP 5/325 [Percocet 5/325 MG] 1 each PO BID 10/28/18 [History] Oxybutynin Chloride [Ditropan Xl] 5 mg PO DAILY 10/28/18 [History] Pantoprazole Sodium 20 mg PO HS 10/28/18 [History] Phenytoin Sodium Extended [Phenytek] 400 mg PO HS 10/28/18 [History] Potassium Chloride [K-Tab ER] 20 meq PO DAILY 10/28/18 [History] Sennosides [Senna] 8.6 mg PO DAILY PRN 10/28/18 [History] dilTIAZem HCl [Diltiazem 24Hr Cd] 180 mg PO DAILY 10/28/18 [History] metFORMIN [Glucophage] 2,000 mg PO 0800 10/28/18 [History] Allergy/AdvReac Type Severity Reaction Status Date / Time heparin AdvReac Unknown See Verified 10/28/18 06:01 Comments All Systems Review: The remainder of the systems were reviewed and are negative - Cardiovascular Cardiovascular: as per HPI, dyspnea at rest - Gastrointestinal Gastrointestinal: other (Abdominal distention) Physical Examination Vital Signs, Last 4 Hours Temp Pulse Resp BP Pulse Ox 10/30/18 07:29 98.3 F 65 18 134/53 98 General: Conversant, No Apparent Distress HEENT: Atraumatic, Normocephaly, Mucus Membranes Moist Neck: No JVD, Normal carotid pulses Cardiac: Reg Rate and Rhythm, Normal S1 and S2, No Murmur Lungs: Normal Breath Sounds, No Wheeze, Rales, Rhonchi Neuro: Alert and responsive, Other (R arm and leg flaccid; alert & oriented x 3, pleasant and cooperative) Abdomen: Soft, Non-Tender Skin: No rashes noted on visualized skin Musculoskeletal: No Chest Wall Tenderness Extremities: No Clubbing, No Cyanosis, No Edema, Normal Pulses Results 10/29/18 06:54 10/30/18 07:48 Lab Results Laboratory Tests 10/28/18 10/28/18 10/28/18 05:00 05:00 09:21 WBC Hgb Hct Potassium Creatinine Est GFR (Non-Af Amer) Hemoglobin A1c Magnesium AST 21 ALT 20 Troponin I < 0.03 B-Natriuretic Peptide 439 H 10/28/18 10/29/18 10/29/18 09:21 06:54 06:54 WBC 12.8 H Hgb 12.8 Hct 41.1 Potassium Creatinine Est GFR (Non-Af Amer) Hemoglobin A1c 6.4 H Magnesium 1.8 AST ALT Troponin I B-Natriuretic Peptide 10/30/18 07:48 WBC Hgb Hct Potassium 4.3 Creatinine 0.38 L Est GFR (Non-Af Amer) > 60 Hemoglobin A1c Magnesium AST ALT Troponin I B-Natriuretic Peptide Laboratory Tests 10/28/18 05:00 Troponin I < 0.03 ITS Impressions Chest X-Ray 10/28/18 04:53 IMPRESSION: Findings consistent with congestive heart failure. D/ / Bruno De La Cruz MD / Bruno De La Cruz MD Interpreting Provider: Bruno De La Cruz MD Echocardiogram 10/28/18 07:40 Impressions: LVEF 65%. Normal LV chamber size and function. Mild concentric left ventricular hypertrophy. Moderate left ventricular diastolic dysfunction. Atypical septal motion consistent with post-operative status. Right ventricle was not well visualized. Grossly, it is normal in function. Severe pulmonary hypertension. No significant valvular dysfunction. Left Ventricular Wall Motion: Rest Echo Findings All wall segments showed normal motion. Findings: Study Quality * Technically sub-optimal due to poor echocardiographic windows. ECG Findings * Normal sinus rhythm. Left Ventricle * LVEF 65%. * Normal LV chamber size and function. * Mild concentric left ventricular hypertrophy. * Moderate left ventricular diastolic dysfunction. * Atypical septal motion consistent with post-operative status. Right Ventricle * Right ventricle was not well visualized. Grossly, it is normal in function. Left Atrium * Mildly dilated left atrium. Right Atrium * Mildly dilated right atrium. Aortic Valve * Aortic valve not well visualized. * Trace aortic regurgitation. * No aortic stenosis. Mitral Valve * Mild mitral annular calcification * Trace mitral regurgitation. * No mitral stenosis. Tricuspid Valve * Normal tricuspid valve structure and function. * Trace tricuspid regurgitation. * Severe pulmonary hypertension. Pulmonic Valve * Pulmonic valve is not well visualized. Aorta * Normally sized aortic root. Pericardium * The pericardium appears normal. IVC * Normal IVC dimensions and inspiratory collapse. Pulmonary Artery * Pulmonary artery not well visualized. Abdomen/Pelvis CT 10/28/18 07:42 IMPRESSION: 1. Diverticulosis. 2. Cholelithiasis. 3. Bilateral pleural effusions with lower lobe and lingular atelectasis or infiltrate. D/ / 10/28/2018 10:51:40 Esvin Diaz MD / vanessa Interpreting Provider: Esvin Diaz MD Chest X-Ray 10/28/18 16:42 IMPRESSION: Bilateral airspace disease likely representing edema. D/ / Deepthi Kapadia Cha, MD / Deepthi Kapadia Cha, MD Interpreting Provider: Deepthi Kapadia Cha, MD Active Medications Amlodipine Besylate (Norvasc) 5 mg PO DAILY [facility] Stop: 04/29/19 09:01 Last Admin: 10/30/18 09:24 Dose: 5 mg Documented by: Artificial Tears (Akwa Tears) 1 drop BOTH EYES BID [facility] Stop: 04/29/19 09:01 Last Admin: 10/30/18 09:25 Dose: Not Given Documented by: Aspirin (Aspirin Ec) 81 mg PO DAILY [facility] Stop: 04/29/19 09:01 Last Admin: 10/30/18 09:24 Dose: 81 mg Documented by: Atorvastatin Calcium (Lipitor) 40 mg PO DAILY [facility] Stop: 04/29/19 09:01 Last Admin: 10/30/18 09:24 Dose: 40 mg Documented by: Baclofen (Lioresal) 10 mg PO QID [facility] Stop: 04/29/19 09:01 Last Admin: 10/30/18 09:24 Dose: 10 mg Documented by: Budesonide/Formoterol Fumarate (Symbicort) 2 puff IH BIDR [facility]; Protocol Stop: 04/29/19 10:01 Last Admin: 10/30/18 08:06 Dose: 2 puff Documented by: Clopidogrel Bisulfate (Plavix) 75 mg PO DAILY [facility] Stop: 04/29/19 09:01 Last Admin: 10/30/18 09:24 Dose: 75 mg Documented by: Dextrose/Water (Dextrose 50% (Syg)) 25 ml IVP AD PRN PRN Reason: Hypoglycemia Stop: 04/29/19 07:45 Diltiazem HCl (Cardizem Cd) 180 mg PO DAILY [facility] Stop: 04/29/19 09:01 Last Admin: 10/29/18 09:01 Dose: 180 mg Documented by: Fenofibrate (Tricor) 162 mg PO DAILY [facility] Stop: 04/29/19 09:01 Last Admin: 10/30/18 09:24 Dose: 162 mg Documented by: Folic Acid (Folic Acid) 1 mg PO DAILY [facility] Stop: 04/29/19 09:01 Last Admin: 10/30/18 09:24 Dose: 1 mg Documented by: Furosemide (Lasix) 40 mg IVP BIDDIURETIC [facility] Stop: 04/29/19 17:01 Last Admin: 10/30/18 09:25 Dose: 40 mg Documented by: Glucagon (Glucagen) 1 mg IM ONCE PRN PRN Reason: Hypoglycemia Stop: 04/29/19 07:45 Glucose (Gluctose) 15 gm PO ONCE PRN PRN Reason: Hypoglycemia Stop: 04/29/19 07:45 Glucose (Gluctose) 30 gm PO ONCE PRN PRN Reason: Hypoglycemia Stop: 04/29/19 07:45 Dextrose (Dextrose 5%) 1,000 mls @ 100 mls/hr IVC .Q10H PRN PRN Reason: HYPOGLYCEMIA Stop: 04/29/19 07:45 Insulin Human Lispro (Humalog) 0 units SQ TIDAC [facility]; Protocol Stop: 04/29/19 11:31 Last Admin: 10/30/18 09:19 Dose: Not Given Documented by: Levalbuterol HCl (Xopenex) 0.63 mg IH [id number] PRN PRN Reason: Shortness Of Breath Stop: 05/01/19 10:01 Lisinopril (Zestril) 10 mg PO DAILY [facility] Stop: 04/29/19 09:01 Last Admin: 10/30/18 09:24 Dose: 10 mg Documented by: Naloxone HCl (Narcan) 0.4 mg IVP Q2MPRN PRN PRN Reason: SEE COMMENTS Stop: 04/29/19 07:14 Nystatin (Nystop) 1 appl TP TID [facility] Stop: 04/29/19 22:31 Last Admin: 10/30/18 09:25 Dose: 1 appl Documented by: Omeprazole (Prilosec) 20 mg PO HS [facility] Stop: 04/29/19 21:01 Last Admin: 10/29/18 21:23 Dose: 20 mg Documented by: Ondansetron HCl (Zofran) 4 mg IVP Q6HR PRN; Protocol PRN Reason: Nausea And Vomiting Stop: 04/29/19 13:50 Oxybutynin Chloride (Ditropan) 5 mg PO BID [facility] Stop: 04/29/19 09:01 Last Admin: 10/30/18 09:24 Dose: 5 mg Documented by: Pharmacy Profile Note (Patient Taking Own Medication) 1 each PO DAILY [facility] Stop: 04/29/19 09:01 Last Admin: 10/30/18 09:19 Dose: Not Given Documented by: Phenytoin (Dilantin Er) 400 mg PO HS [facility] Stop: 04/29/19 21:01 Last Admin: 10/29/18 21:23 Dose: 400 mg Documented by: Senna (Senna) 8.6 mg PO DAILY PRN PRN Reason: Constipation Stop: 04/29/19 07:15 Vitamin D (Vitamin D) 1,000 unit PO DAILY [facility] Stop: 04/29/19 15:01 Last Admin: 10/30/18 09:24 Dose: 1,000 unit Documented by: - Imaging and Cardiology Echo: report reviewed (02/2012: Impressions: * LVEF >65% * Left Ventricle: Normal size, function and thickness. * Mild diastolic dysfunction. * Normal right ventricular size and systolic function. * No evidence of inter-atrial shunting noted with saline contrast. * No pulmonary hypertension. Left Ventricular Wall Motion: All wall segments showed normal motion.) - EKG Interpretation EKG results cardiology: personally reviewed (ST 100's), no diagnostic ischemia Consult Discharge Plan - Plan Referrals: NONE,PCP [Primary Care Provider] -
[2018-10-30 11:59] LABS: Thyroid Stimulating Hormone 0.751 mcIU/mL (0.340-5.600)
[2018-10-30] MEDS ORDERED: Warfarin perPT PO PRN (18:00)
[2018-10-30] MEDS ORDERED: *HR* Warfarin 5 MG TABLET PO ONE (18:00)
--- NOTE | 2018-10-30 19:37 | Internal Med Progress Note ---
Hospitalist Progress Note - Encounter Date of Encounter: 10/30/18 Time of Encounter: 19:30 - Subjective Interval History: Pt denies CP or SOB. She denies fever chills, N/V or diarrhea. Denies abdominal pain. - Exam Vitals: Temp Pulse Resp BP Pulse Ox 98.6 F 82 18 184/94 87 10/30/18 17:22 10/30/18 17:22 10/30/18 11:51 10/30/18 17:22 10/30/18 17:22 Exam: Head exam: Present: atraumatic, normocephalic Eye exam: Present: PERRL, conjuntiva pink, sclera anicteric Pupils: Present: PERRLA Neck exam general surgery: Present: supple, trachea midline. Absent: lympha denopathy Respiratory exam: Present: decreased breath sounds, wheezes. Absent: accessory muscle use, rales, rhonchi Cardiovascular exam: Present: RRR, +S1, +S2. Absent: diastolic murmur, gallop, rubs, systolic murmur GI/Abdominal exam: Present: normal bowel sounds, soft, no peritoneal signs. Absent: distended, tenderness Extremities exam: Present: warm, radial pulses palpable and symmetrical. Absent: calf tenderness, cyanotic, pedal edema Neurological exam: Present: CN II-XII intact, oriented X3, no focal deficits. Absent: pronator drift, facial droop, speech deficit Skin exam: Present: dry, intact - Assessment and Plan (1) Congestive heart failure Current Visit: Yes Status: Acute Assessment and Plan: Has lower extremity edema and pulmonary edema with shortness of breath. Echo showed EF 65%, results below. Lasix 40 mg IV BID. Echo EV/EV echocardiogram Impressions: LVEF 65%. Normal LV chamber size and function. Mild concentric left ventricular hypertrophy. Moderate left ventricular diastolic dysfunction. Atypical septal motion consistent with post-operative status. Right ventricle was not well visualized. Grossly, it is normal in function. Severe pulmonary hypertension. No significant valvular dysfunction. (2) Acute respiratory failure with hypoxia Current Visit: Yes Status: Acute Assessment and Plan: Pt comes in with shortness of breath and hypoxic respiratory failure to the 70s due to Acute CHF and COPD exacerbation CXR showed findings consistent with CHF Started on lasix, nebs, steroids and antibiotics. Placed on BIPAP (3) COPD exacerbation Current Visit: Yes Status: Acute Assessment and Plan: Started on nebs, steroids and antibiotics Place on BIPAP. (4) Diabetes Current Visit: Yes Status: Acute Assessment and Plan: Continue SS insulin and monitor fingersticks (5) Hypertension Current Visit: Yes Status: Acute Assessment and Plan: Continue home meds. Amlodipine (6) Dyslipidemia Current Visit: Yes Status: Acute Assessment and Plan: Continue Atorvastatin (7) Abdominal distension Current Visit: Yes Status: Acute Assessment and Plan: Has abdominal distention LFTs wnl. CT abdomen CT/CT abd pelvis wo no iv no oral IMPRESSION: 1. Diverticulosis. 2. Cholelithiasis. 3. Bilateral pleural effusions with lower lobe and lingular atelectasis or infiltrate DVT Prophylaxis: Pt started on Coumadin by cardiology - Summary of Assessment and Plan Summary of Assessment and Plan: History of present illness: Sagar Braun Ms. Means is a 72 year old female with pmh of CHF, COPD, diabetes, CVA, hypertension presenting with complaints of shortness of breath at the long-term today. Patient says she has been short of breath for a couple of days now, and has had intermittent productive coughing and wheezing. She denies any fevers or chills or chest pain. She admits to lower extremity swelling and worsening abdominal distention for the last couple of days as well. This am, she woke and was very short of breath, the long-term staff took her oxygen saturation and noted it was in the 70s. They put her on 3L of oxygen and could only get her sats up to 85% and therefore sent her to the ER. In the ER, she had a chest xray done showing pulmonary edema and she was given one dose of lasix and is being admitted for further management - Time Spent with Patient Total time spent is greater than 50% in coordination of care (as documented) at patient's floor/unit and/or counseling patient: less than 15 minutes Plan of Care Discussed with: patient Internal Medicine: Result - Labs CBC & Chem 7: 10/29/18 06:54 10/30/18 07:48 Labs: BMP 10/30/18 07:48 Sodium 139 Potassium 4.3 Chloride 99 Carbon Dioxide 37 H BUN 22 Creatinine 0.38 L Glucose 147 H Calcium 9.2 Consult Discharge Plan - Plan Referrals: NONE,PCP [Primary Care Provider] - (1) Congestive heart failure Qualifiers: Heart failure type: diastolic Heart failure chronicity: acute Qualified Code(s): I50.31 - Acute diastolic (congestive) heart failure (4) Diabetes Qualifiers: Diabetes mellitus type: type 2 (5) Hypertension Qualifiers: Qualified Code(s): I10 - Essential (primary) hypertension
[2018-10-30 23:55] LABS: ABG Base Excess 15 mEq/L (-2 to 3); ABG HCO3 47 mEq/L (21-27); ABG Oxygen Saturation 92 % (95-98); ABG PCO2 104 mmHg (35-45); ABG PH 7.26 pH Units (7.32-7.45); ABG PO2 80 mmHg (85-104); ABG TCO2 > 50 mEq/L (20-26); Blood Gas Modality NIV; Blood Gas PEEP 6 cm H2O; Blood Gas Respiration Rate 8
[2018-10-31 01:05] LABS: ABG Base Excess 16 mEq/L (-2 to 3); ABG HCO3 46 mEq/L (21-27); ABG Oxygen Saturation 91 % (95-98); ABG PCO2 89 mmHg (35-45); ABG PH 7.32 pH Units (7.32-7.45); ABG PO2 72 mmHg (85-104); ABG TCO2 49 mEq/L (20-26); Blood Gas Modality AVAPS; Blood Gas PEEP 8 cm H2O; Blood Gas Respiration Rate 14; Blood Gas VT 450 cc
--- NOTE | 2018-10-31 04:21 | Event Note ---
Date of Encounter: 10/30/18 Time of Encounter: 23:31 Alerted by patient's nurse LELE Slaughter the patient had been admitted for CHF and A. fib was now drowsy. Able to patient with prompting and patient had been on BiPAP for several hours. Nurse talk to patient's [facility] who stated this is not her normal baseline. Requested nurse give vital signs which were temp 97.7, BP 164/75, HR 79, RR 18, SPO2 95% on BiPAP. Accu-Chek 160. Nurse instructed to get stat ABG and notify RT. ABG from left radial showed pH 7.26, PCO2 104, PO2 80, HCO3 47, total CO2 greater than 50, O2 saturation 92, base excess 15, positive Andrzej test. Repeat ABG scheduled for 01:00 which showed pH 7.32, PCO2 89, PO2 72, HCO3 46, total CO2 49, O2 saturation 91, base excess 16 on BiPAP with a wraps at 50.0. Pt. reportedly much more A&O by RT following AVAPS. Nurse instructed to continue monitoring pt. very closely and alert me immediately of any adverse changes.
[2018-10-31] MEDS: Budesonide/Formoterol 160/4.5 1 PUFF INH IH SCH ×2 (07:37→22:05)
--- NOTE | 2018-10-31 08:21 | Internal Med Progress Note ---
Hospitalist Progress Note - Encounter Date of Encounter: 10/31/18 Time of Encounter: 10:40 - Subjective Interval History: awake, feeling confused today. + palpitations but no cp, sob, presyncope. no cough or wheezing. overnight had co2 retention and mental status changes. appear improved but repeat vbg with continued retention. she is agreeable to bipap today to assist with retention. - Exam Vitals: Temp Pulse Resp BP Pulse Ox 98.6 F 80 18 151/58 92 10/31/18 08:03 10/31/18 08:03 10/31/18 08:03 10/31/18 08:03 10/31/18 08:03 Exam: General: awake, alert, appears stated age Cardiovascular:regular rate and rhythm, normal S1 & S2, No JVD. radial pulses 2+, no lower extremity edema Lungs:Normal breath sounds, no wheezes, or crackles. Normal respiratory effort on o2 nc Abdomen:Soft, non-tender, non-distended, no rigidity, + bowel sounds Neurological: AAOx3, CN grossly intact, no focal deficits - Assessment and Plan (1) Congestive heart failure Current Visit: Yes Status: Acute Assessment and Plan: Had lower extremity edema and pulmonary edema with shortness of breath. Echo showed EF 65%, results below. Echo EV/EV echocardiogram Impressions: LVEF 65%. Normal LV chamber size and function. Mild concentric left ventricular hypertrophy. Moderate left ventricular diastolic dysfunction. Atypical septal motion consistent with post-operative status. Right ventricle was not well visualized. Grossly, it is normal in function. Severe pulmonary hypertension. No significant valvular dysfunction. -cards following -cont iv lasix (2) Acute respiratory failure with hypoxia Current Visit: Yes Status: Acute Assessment and Plan: Pt comes in with shortness of breath and hypoxic respiratory failure to the 70s due to Acute CHF I see prior documentation of COPD E but she was not ever routinely on abx and is not on steroids Suspect this coming more from CHF exacerbation and afib rvr CXR showed findings consistent with CHF -cont lasix -cont bipap -cards treatment for afib as below (3) COPD exacerbation Current Visit: Yes Status: Acute Assessment and Plan: again?? she was not treated for this as documented by previous providers hold off on starting new treatment and focusing on cardiac treatment as above, if no improvement then would re consider COPDE otis in setting of co2 retention (4) Diabetes Current Visit: Yes Status: Acute Assessment and Plan: cont insulin regimen and monitoring (5) Hypertension Current Visit: Yes Status: Acute Assessment and Plan: Continue CCB as started by cards on sotalol lisinopril BP elevated this evening, d/w cards and ok to give lopressor IV cont to monitor (6) Dyslipidemia Current Visit: Yes Status: Acute Assessment and Plan: Continue Atorvastatin (7) Abdominal distension Current Visit: Yes Status: Acute Assessment and Plan: Has abdominal distention, appears resolved on my exam today LFTs wnl. CT abdomen CT/CT abd pelvis wo no iv no oral IMPRESSION: 1. Diverticulosis. 2. Cholelithiasis. 3. Bilateral pleural effusions with lower lobe and lingular atelectasis or infiltrate -cont diuresis (8) New onset atrial fibrillation Current Visit: Yes Status: Resolved Assessment and Plan: coverted to NSR with sotalol cards following -cont CCB + sotalol -warfarin, no bridge due to hit, awaiting therapeutic INR DVT Prophylaxis: scds, warfarin - Time Spent with Patient Total time spent is greater than 50% in coordination of care (as documented) at patient's floor/unit and/or counseling patient: Internal Medicine: Result - Labs CBC & Chem 7: 10/31/18 04:00 10/31/18 04:00 Labs: BMP 10/30/18 07:48 Sodium 139 Potassium 4.3 Chloride 99 Carbon Dioxide 37 H BUN 22 Creatinine 0.38 L Glucose 147 H Calcium 9.2 - ABG Interpretation ABG results: ABG ABG pH 7.32 pH Units (7.32-7.45) 10/31/18 00:58 ABG pCO2 89 mmHg (35-45) H* 10/31/18 00:58 ABG pO2 72 mmHg (85-104) L 10/31/18 00:58 ABG O2 Saturation 91 % (95-98) L 10/31/18 00:58 Consult Discharge Plan - Plan Referrals: NONE,PCP [Primary Care Provider] - (1) Congestive heart failure Qualifiers: Heart failure type: diastolic Heart failure chronicity: acute Qualified Code(s): I50.31 - Acute diastolic (congestive) heart failure (4) Diabetes Qualifiers: Diabetes mellitus type: type 2 (5) Hypertension Qualifiers: Qualified Code(s): I10 - Essential (primary) hypertension
[2018-10-31] MEDS: Insulin LISPRO 300 UNITS/3 ML VIAL SQ SCH ×3 (08:55→18:16)
[2018-10-31] MEDS: amLODIPine 5 MG TABLET PO SCH (08:59)
[2018-10-31] MEDS: Baclofen 10 MG TABLET PO SCH ×4 (08:59→20:44)
[2018-10-31] MEDS: Fenofibrate 54 MG TABLET PO SCH (08:59)
[2018-10-31] MEDS: Nystatin POWDER 30 GM BOTTLE TP SCH ×3 (08:59→20:43)
[2018-10-31] MEDS: Furosemide 40 MG/4 ML VIAL IVP SCH ×2 (08:59→18:16)
[2018-10-31] MEDS: Folic Acid 1 MG TABLET PO SCH (08:59)
[2018-10-31] MEDS: Lisinopril 20 MG TABLET PO SCH (08:59)
[2018-10-31] MEDS: Artificial Tears SOLN 15 ML BOTTLE BOTH EYES SCH ×2 (08:59→20:44)
[2018-10-31] MEDS: Aspirin Enteric Coated 81 MG Tablet PO SCH (08:59)
[2018-10-31] MEDS: (Mirabegron [Myrbetriq] 50 MG) PO SCH (09:00)
[2018-10-31] MEDS: Cholecalciferol (D-3) 1,000 UNIT TABLET PO SCH (09:09)
[2018-10-31 09:32] LABS: Hematocrit 38.1 % (35.3-44.9); Hemoglobin 11.7 g/dL (11.5-15.4); Mean Corpuscular HGB Conc 30.7 g/dL (31.6-35.5); Mean Corpuscular Hemoglobin 31.9 pg (28.0-33.3); Mean Corpuscular Volume 103.8 fL (83.0-100.0); Mean Platelet Volume 9.6 fL (9.4-12.4); Platelet Count 246 K/mcL (140-400); Red Blood Count 3.67 M/mcL (3.82-4.97); Red Cell Distribution Width 12.6 % (11.5-14.5)
[2018-10-31 09:35] LABS: BUN/Creatinine Ratio 54 (6-26); Blood Urea Nitrogen 21 mg/dL (8-23); Calcium 9.4 mg/dL (8.6-10.3); Carbon Dioxide 44 mEq/L (23-29); Chloride 98 mEq/L (98-107); Glucose 141 mg/dL (70-105); Osmolality,Calculated 305 (280-300); Potassium 4.4 mEq/L (3.5-5.1); Sodium 145 mEq/L (136-145); eGFR For Non-African Americans > 60 (> 60)
[2018-10-31 09:38] LABS: INR 1.2; Prothrombin Time 13.5 Seconds (9.4-12.1)
--- NOTE | 2018-10-31 10:07 | Cardiology Progress Note ---
Date of Encounter: 10/31/18 Time of Encounter: 08:40 Assessment and Plan (1) New onset atrial fibrillation Current Visit: Yes Status: Acute Per Cardiology: New-onset PAF with 7.4 second pause with conversion to SR. Does not desire pacer if clinically warranted. TSH ok. Now on sotalol 80 mg by mouth every 12 hours to maintain sinus rhythm. Status post 3 doses; ECG after 2 doses this morning showed sinus rhythm in the 70s with QTC 420 ms. Will discontinue Norvasc 5 mg by mouth daily and resume Cardizem CD 180 mg by mouth daily. Continue to monitor her systolic blood pressure. We will continue to follow ECGs. Regarding long-term anticoagulation, has past intolerance to heparin-- HIT. Had been on Coumadin in the past-- hx of DVT; ?PE. Now on Coumadin with target INR 2.0-3.0; current INR 1.2. H&H stable. Avoid DOACs since on Dilantin. (2) CAD (coronary artery disease) Current Visit: Yes Status: Chronic Per Cardiology: Troponin negative 1. CP free. History of CAD with CABG 4 in 2009. On asa, statin, Plavix, ACEI. BB on hold currently. Qualifiers: Coronary Disease-Associated Artery/Lesion type: mcgrath artery [place] vs. transplanted heart: mcgrath heart Associated angina: without angina Qualified Code(s): I25.10 - Atherosclerotic heart disease of mcgrath coronary artery without angina pectoris (3) Congestive heart failure Current Visit: Yes Status: Acute Per Cardiology: CXR showed CHF, BNP 439. On IV Lasix 40mg BID. Net I&O -1778ml. Echo: Impressions: LVEF 65%. Normal LV chamber size and function. Mild concentric left ventricular hypertrophy. Moderate left ventricular diastolic dysfunction. Atypical septal motion consistent with post-operative status. Right ventricle was not well visualized. Grossly, it is normal in function. Severe pulmonary hypertension. No significant valvular dysfunction. Left Ventricular Wall Motion: Rest Echo Findings All wall segments showed normal motion. Clinically appears improved. On daily weights, strict I&O, 1.5 L fluid restriction. Qualifiers: Heart failure type: diastolic Heart failure chronicity: acute Qualified Code(s): I50.31 - Acute diastolic (congestive) heart failure Discussion w patient/family: The assessment and plan as outlined above was discussed with the patient and/or family members who expressed understanding and agreement. All questions were answered. Thank you for involving us in the care of your patient. Please call with any questions. Subjective Principal diagnosis: PAF Interval history: Seen today with daughter in law at bedside. She denies any concerns over night. Denies any chest pain, short of breath, palpitations. Denies any awareness to any active bleeding or blood loss. Reports overall breathing has improved during stay. Objective Vital Signs, Last 4 Hours Temp Pulse Resp BP Pulse Ox 10/31/18 09:12 92 10/31/18 08:03 98.6 F 80 18 151/58 92 10/31/18 07:37 18 92 General: Conversant, No Apparent Distress HEENT: Atraumatic, Normocephaly, Mucus Membranes Moist Neck: No JVD, Normal carotid pulses Cardiac: Reg Rate and Rhythm, Normal S1 and S2, No Murmur Lungs: Normal Breath Sounds, No Wheeze, Rales, Rhonchi Neuro: Alert and responsive, Other (Right side flaccid) Abdomen: Soft, Non-Tender Skin: No rashes noted on visualized skin Musculoskeletal: No Chest Wall Tenderness Extremities: No Clubbing, No Cyanosis, No Edema, Normal Pulses Results 10/31/18 04:00 10/31/18 04:00 Lab Results Laboratory Tests 10/29/18 10/31/18 10/31/18 06:54 04:00 04:00 Hgb 11.7 Hct 38.1 Creatinine 0.39 L Est GFR (Non-Af Amer) > 60 Magnesium 1.8 Laboratory Tests 10/31/18 04:00 INR 1.2 Laboratory Tests 10/30/18 07:48 TSH 0.751 Active Medications Amlodipine Besylate (Norvasc) 5 mg PO DAILY [facility] Stop: 04/29/19 09:01 Last Admin: 10/31/18 08:59 Dose: 5 mg Documented by: Artificial Tears (Akwa Tears) 1 drop BOTH EYES BID [facility] Stop: 04/29/19 09:01 Last Admin: 10/31/18 08:59 Dose: 1 drop Documented by: Aspirin (Aspirin Ec) 81 mg PO DAILY DON[facility] Stop: 04/29/19 09:01 Last Admin: 10/31/18 08:59 Dose: 81 mg Documented by: Atorvastatin Calcium (Lipitor) 40 mg PO DAILY [facility] Stop: 04/29/19 09:01 Last Admin: 10/31/18 08:59 Dose: 40 mg Documented by: Baclofen (Lioresal) 10 mg PO QID [facility] Stop: 04/29/19 09:01 Last Admin: 10/31/18 08:59 Dose: 10 mg Documented by: Budesonide/Formoterol Fumarate (Symbicort) 2 puff IH BIDR [facility]; Protocol Stop: 04/29/19 10:01 Last Admin: 10/31/18 07:37 Dose: 2 puff Documented by: Dextrose/Water (Dextrose 50% (Syg)) 25 ml IVP AD PRN PRN Reason: Hypoglycemia Stop: 04/29/19 07:45 Fenofibrate (Tricor) 162 mg PO DAILY [facility] Stop: 04/29/19 09:01 Last Admin: 10/31/18 08:59 Dose: 162 mg Documented by: Folic Acid (Folic Acid) 1 mg PO DAILY [facility] Stop: 04/29/19 09:01 Last Admin: 10/31/18 08:59 Dose: 1 mg Documented by: Furosemide (Lasix) 40 mg IVP BIDDIURETIC [facility] Stop: 04/29/19 17:01 Last Admin: 10/31/18 08:59 Dose: 40 mg Documented by: Glucagon (Glucagen) 1 mg IM ONCE PRN PRN Reason: Hypoglycemia Stop: 04/29/19 07:45 Glucose (Gluctose) 15 gm PO ONCE PRN PRN Reason: Hypoglycemia Stop: 04/29/19 07:45 Glucose (Gluctose) 30 gm PO ONCE PRN PRN Reason: Hypoglycemia Stop: 04/29/19 07:45 Dextrose (Dextrose 5%) 1,000 mls @ 100 mls/hr IVC .Q10H PRN PRN Reason: HYPOGLYCEMIA Stop: 04/29/19 07:45 Insulin Human Lispro (Humalog) 0 units SQ TIDAC [facility]; Protocol Stop: 04/29/19 11:31 Last Admin: 10/31/18 08:55 Dose: Not Given Documented by: Levalbuterol HCl (Xopenex) 0.63 mg IH [id number] PRN PRN Reason: Shortness Of Breath Stop: 05/01/19 10:01 Lisinopril (Zestril) 20 mg PO DAILY [facility] Stop: 05/02/19 09:01 Last Admin: 10/31/18 08:59 Dose: 20 mg Documented by: Naloxone HCl (Narcan) 0.4 mg IVP Q2MPRN PRN PRN Reason: SEE COMMENTS Stop: 04/29/19 07:14 Nystatin (Nystop) 1 appl TP TID [facility] Stop: 04/29/19 22:31 Last Admin: 10/31/18 08:59 Dose: 1 appl Documented by: Omeprazole (Prilosec) 20 mg PO HS [facility] Stop: 04/29/19 21:01 Last Admin: 10/30/18 20:10 Dose: 20 mg Documented by: Ondansetron HCl (Zofran) 4 mg IVP Q6HR PRN; Protocol PRN Reason: Nausea And Vomiting Stop: 04/29/19 13:50 Oxybutynin Chloride (Ditropan) 5 mg PO BID [facility] Stop: 04/29/19 09:01 Last Admin: 10/31/18 08:59 Dose: 5 mg Documented by: Pharmacy Profile Note (Patient Taking Own Medication) 1 each PO DAILY [facility] Stop: 04/29/19 09:01 Last Admin: 10/31/18 09:00 Dose: Not Given Documented by: Phenytoin (Dilantin Er) 400 mg PO HS [facility] Stop: 04/29/19 21:01 Last Admin: 10/30/18 20:10 Dose: 400 mg Documented by: Senna (Senna) 8.6 mg PO DAILY PRN PRN Reason: Constipation Stop: 04/29/19 07:15 Sotalol HCl (Betapace) 80 mg PO Q12H [facility] Stop: 05/01/19 12:31 Last Admin: 10/31/18 01:13 Dose: Not Given Documented by: Vitamin D (Vitamin D) 1,000 unit PO DAILY [facility] Stop: 04/29/19 15:01 Last Admin: 10/31/18 09:09 Dose: 1,000 unit Documented by: Warfarin Sodium (Coumadin Perpt) 1 each PO DAILY@1800 PRN PRN Reason: SEE COMMENTS Stop: 05/01/19 18:01 Consult Discharge Plan - Plan Referrals: NONE,PCP [Primary Care Provider] -
[2018-10-31] MEDS: Diltiazem CD (24hr) 180 MG CAPSULE PO SCH (12:17)
--- NOTE | 2018-10-31 16:17 | Electrocardiograph Report ---
[address] [address] Test Date: 2018-10-28 Pat Name: Amber Means Department: EXAM4 Room: 2NE27 Gender: F Surveillance Inspector: : 1945 Requested By: Chao Burgess Order Number: [id number] Reading MD: Joe Granados Measurements Intervals [place] Rate: 101 P: 57 [place]: 135 QRS: 60 QRSD: 87 T: 34 QT: 345 QTc: 448 Interpretive Statements Sinus tachycardia Minimal ST depression, inferior leads Electronically Signed On 10-31-2018 16:16:31 EDT by Joe Granados
[2018-10-31 17:04] LABS: VBG HCO3 44 mEq/L (21-27); VBG PCO2 73 mmHg (41-51); VBG PH 7.39 pH Units (7.32-7.42); VBG PO2 196 mmHg (25-50)
[2018-10-31] MEDS ORDERED: *HR* Metoprolol 5 MG/5 ML VIAL IVP ONE (17:04)
--- NOTE | 2018-10-31 17:33 | Electrocardiograph Report ---
[address] [address] Test Date: 2018-10-31 Pat Name: Amber Means Department: 111 Room: 2NE27 Gender: F River Captain: Sofia : 1945 Requested By: Jason Guerrero Order Number: [id number] Reading MD: Filomena Driver Measurements Intervals [place] Rate: 76 P: 63 [place]: 151 QRS: 47 QRSD: 90 T: 70 QT: 390 QTc: 420 Interpretive Statements SINUS RHYTHM NONSPECIFIC T-WAVE ABNORMALITY Electronically Signed On 10-31-2018 17:31:47 EDT by Filomena Driver
--- NOTE | 2018-10-31 17:52 | Electrocardiograph Report ---
[address] [address] Test Date: 2018-10-29 Pat Name: Amber Means Department: 111 Room: 2NE27 Gender: F Mathematician Research: : 1945 Requested By: Livan Parks Order Number: [id number] Reading MD: Filomena Driver Measurements Intervals [place] Rate: 144 P: CT: 0 QRS: 46 QRSD: 88 T: -10 QT: 282 QTc: 365 Interpretive Statements ATRIAL FIBRILLATION WITH RAPID VENTRICULAR RESPONSE NONSPECIFIC ST & T-WAVE ABNORMALITY ABNORMAL RHYTHM ECG Electronically Signed On 10-31-2018 17:51:20 EDT by Filomena Driver
[2018-10-31] MEDS ORDERED: *HR* Warfarin 5 MG TABLET PO ONE (18:00)
[2018-11-01] MEDS ORDERED: 0.9 % Sodium Chloride 500 ML IVC ONE (00:05)
[2018-11-01 06:03] LABS: Basophils % 0.3 %; Eosinophils % 0.3 %; Hemoglobin 11.6 g/dL (11.5-15.4); Immature Granulocytes % 0.4 % (0-4); Lymphocytes # 1.5 K/mcL (0.6-4.6); Lymphocytes % 18.3 %; Mean Corpuscular HGB Conc 30.5 g/dL (31.6-35.5); Mean Corpuscular Hemoglobin 31.4 pg (28.0-33.3); Mean Platelet Volume 9.7 fL (9.4-12.4); Monocytes # 0.9 K/mcL (0.0-1.3); Monocytes % 10.7 %; Neutrophils # 5.6 K/mcL (1.6-8.9); Platelet Count 269 K/mcL (140-400); Red Blood Count 3.69 M/mcL (3.82-4.97); Red Cell Distribution Width 12.4 % (11.5-14.5)
[2018-11-01 06:09] LABS: INR 1.5; Prothrombin Time 17.4 Seconds (9.4-12.1)
[2018-11-01 06:29] LABS: BUN/Creatinine Ratio 56 (6-26); Blood Urea Nitrogen 32 mg/dL (8-23); Calcium 9.4 mg/dL (8.6-10.3); Carbon Dioxide 42 mEq/L (23-29); Chloride 97 mEq/L (98-107); Glucose 142 mg/dL (70-105); Magnesium 1.9 mg/dL (1.6-2.6); Osmolality,Calculated 309 (280-300); Potassium 4.2 mEq/L (3.5-5.1); Sodium 145 mEq/L (136-145); eGFR For Non-African Americans > 60 (> 60)
[2018-11-01] MEDS: Insulin LISPRO 300 UNITS/3 ML VIAL SQ SCH ×4 (07:34→17:07)
[2018-11-01] MEDS: Budesonide/Formoterol 160/4.5 1 PUFF INH IH SCH ×2 (07:52→22:56)
[2018-11-01] MEDS: Aspirin Enteric Coated 81 MG Tablet PO SCH (08:33)
[2018-11-01] MEDS: Fenofibrate 54 MG TABLET PO SCH (08:33)
[2018-11-01] MEDS: Furosemide 40 MG/4 ML VIAL IVP SCH ×3 (08:33→17:05)
[2018-11-01] MEDS: Cholecalciferol (D-3) 1,000 UNIT TABLET PO SCH (08:33)
[2018-11-01] MEDS: Lisinopril 20 MG TABLET PO SCH (08:33)
[2018-11-01] MEDS: Folic Acid 1 MG TABLET PO SCH (08:33)
[2018-11-01] MEDS: Diltiazem CD (24hr) 180 MG CAPSULE PO SCH (08:33)
[2018-11-01] MEDS: Baclofen 10 MG TABLET PO SCH ×4 (08:34→22:05)
[2018-11-01] MEDS: Nystatin POWDER 30 GM BOTTLE TP SCH ×3 (08:40→22:05)
[2018-11-01] MEDS: Artificial Tears SOLN 15 ML BOTTLE BOTH EYES SCH ×2 (08:40→22:05)
[2018-11-01] MEDS: (Mirabegron [Myrbetriq] 50 MG) PO SCH (08:43)
--- NOTE | 2018-11-01 10:11 | Internal Med Progress Note ---
Hospitalist Progress Note - Encounter Date of Encounter: 11/01/18 Time of Encounter: 09:50 - Subjective Interval History: Patient seen and examined this morning at bedside. No acute overnight events noted. Patient currently on BiPAP and does not feel very well. Denies any chest pain, abdominal pain . - Exam Vitals: Temp Pulse Resp BP Pulse Ox 98.2 F 124 18 110/82 90 11/01/18 07:46 11/01/18 08:30 11/01/18 08:30 11/01/18 08:30 11/01/18 08:30 Exam: General: On bipap Respiratory exam: coarse breath sound with bipap. no rales, rhonchi, wheezes Cardiovascular exam: tachycardic, +S1, +S2. no murmur, gallop, rubs. GI/Abdominal exam: Non-tender, Non-distended, normal bowel sounds, soft, no peritoneal signs. Extremities exam: trace pedal edema, pulses palpable in b/l lower extremities. no calf tenderness Neurological exam: CN II-XII intact, AO X3, no focal deficits. - Assessment and Plan (1) Congestive heart failure Current Visit: Yes Status: Acute (2) Acute respiratory failure with hypoxia Current Visit: Yes Status: Acute (3) COPD exacerbation Current Visit: Yes Status: Acute (4) Diabetes Current Visit: Yes Status: Acute (5) Hypertension Current Visit: Yes Status: Acute (6) Dyslipidemia Current Visit: Yes Status: Acute (7) New onset atrial fibrillation Current Visit: Yes Status: Resolved (8) Abdominal distension Current Visit: Yes Status: Acute - Summary of Assessment and Plan Summary of Assessment and Plan: Assessment Diastolic CHF exacerbation COPD exacerbation New onset A. fib with RVR Hypertension HLD Diabetes DVT prophylaxis. Plan - Continue diuresis for now. However patient almost close to euvolemic with trace pedal edema and mild crackles. Patient with EF of 65% moderate diastolic dysfunction, sev pul HTN - Patient likely has component of COPD given hypercapnia. Continue with BiPAP. patient on steroids and empiric antibiotics with ceftriaxone and doxycycline. Continue with Symbicort. Obtain RIP. - Continue sliding scale and Accu-Cheks. Given started on steroids expect hyperglycemia. Monitor for now and may and Levemir - Recent started on Cardizem and sotalol for A. fib. Lisinopril held. Also started on Coumadin given patient on Dilantin. Cardiology recommendation appreciated. - Continue daily weights, fluid restriction and strict and renal monitoring. - Time Spent with Patient Total time spent is greater than 50% in coordination of care (as documented) at patient's floor/unit and/or counseling patient: Internal Medicine: Result - Labs CBC & Chem 7: 11/01/18 05:42 11/01/18 05:42 Labs: Short CBC 11/01/18 Range/Units 05:42 WBC 7.9 (4.3-11.1) K/mcL Hgb 11.6 (11.5-15.4) g/dL Hct 38.0 (35.3-44.9) % Plt Count 269 (140-400) K/mcL Neutrophils # 5.6 (1.6-8.9) K/mcL BMP 11/01/18 05:42 Sodium 145 Potassium 4.2 Chloride 97 L Carbon Dioxide 42 H* BUN 32 H Creatinine 0.57 L Glucose 142 H Calcium 9.4 - ABG Interpretation ABG results: ABG ABG pH 7.32 pH Units (7.32-7.45) 10/31/18 00:58 ABG pCO2 89 mmHg (35-45) H* 10/31/18 00:58 ABG pO2 72 mmHg (85-104) L 10/31/18 00:58 ABG O2 Saturation 91 % (95-98) L 10/31/18 00:58 PT/INR, D-dimer PT 17.4 Seconds (9.4-12.1) H 11/01/18 05:42 Consult Discharge Plan - Plan Referrals: NONE,PCP [Primary Care Provider] - (1) Congestive heart failure Qualifiers: Heart failure type: diastolic Heart failure chronicity: acute Qualified Code(s): I50.31 - Acute diastolic (congestive) heart failure (4) Diabetes Qualifiers: Diabetes mellitus type: type 2 (5) Hypertension Qualifiers: Qualified Code(s): I10 - Essential (primary) hypertension
--- NOTE | 2018-11-01 10:24 | Electrocardiograph Report ---
[address] [address] Test Date: 2018-10-31 Pat Name: Amber Means Department: 111 Room: 2NE27 Gender: F Binder Sorter: : 1945 Requested By: Jorge Ornelas Order Number: [id number] Reading MD: Joe Granados Measurements Intervals [place] Rate: 142 P: ID: 0 QRS: 46 QRSD: 86 T: -26 QT: 310 QTc: 392 Interpretive Statements ATRIAL FLUTTER/TACHYCARDIA WITH RAPID VENTRICULAR RESPONSE NONSPECIFIC ST & T-WAVE ABNORMALITY Electronically Signed On 11-01-2018 10:22:53 EDT by Joe Granados
--- NOTE | 2018-11-01 10:33 | Electrocardiograph Report ---
[address] [address] Test Date: 2018-11-01 Pat Name: Amber Means Department: 111 Room: 2NE27 Gender: F It Support Consultant: : 1945 Requested By: Jason Guerrero Order Number: [id number] Reading MD: Joe Granados Measurements Intervals [place] Rate: 108 P: DE: 0 QRS: 24 QRSD: 98 T: -28 QT: 352 QTc: 415 Interpretive Statements ATRIAL FIBRILLATION WITH RAPID VENTRICULAR RESPONSE NONSPECIFIC T-WAVE ABNORMALITY ABNORMAL RHYTHM ECG Electronically Signed On 11-01-2018 10:32:13 EDT by Joe Granados
--- NOTE | 2018-11-01 11:07 | Cardiology Progress Note ---
Date of Encounter: 11/01/18 Time of Encounter: 11:04 Assessment and Plan (1) New onset atrial fibrillation Current Visit: Yes Status: Resolved Per Cardiology: New-onset PAF with 7.4 second pause with conversion to SR. Does not desire pacer if clinically warranted. TSH ok. Now on sotalol 80 mg by mouth every 12 hours to maintain sinus rhythm. Status p ost 3 doses; ECG after 3 doses this morning showed A-Fib RVR rate 142 with QTC 392 ms. Of note, evening dose 10/30 was held because pt was lethargic. Overnight dose last night appeared to have not been given, but was entered under a one time order. 10/31 d/c'd Norvasc and resumed Cardizem CD 180 mg by mouth daily. BP marginal. Will stop Lisinopril to allow BP room. Regarding long-term anticoagulation, has past intolerance to heparin-- HIT. Had been on Coumadin in the past-- hx of DVT; ?PE. Now on Coumadin with target INR 2.0-3.0; current INR 1.2. H&H stable. Avoid DOACs since on Dilantin. Will continue to monitor BP and QTc on ECGs. If remains A-Fib RVR tomorrow after 5 doses, will need to consider JASMYNE/DCCV. Will make NPO after midnight. (2) Congestive heart failure Current Visit: Yes Status: Acute Per Cardiology: CXR showed CHF, BNP 439. On IV Lasix 40mg BID. Net I&O -3081ml. TTE LVEF 65%. Normal LV chamber size and function. Mild cLVH. Moderate LVDD. Atypical septal motion consistent with post-operative status. RV was not well visualized. Grossly, it is normal in function. Severe phtn. No significant jess vular dysfunction. On daily weights, strict I&O, 1.5 L fluid restriction. On BiPAP this AM. Reports worsening dyspnea. Will continue IV Lasix. Qualifiers: Heart failure type: diastolic Heart failure chronicity: acute Qualified C ode(s): I50.31 - Acute diastolic (congestive) heart failure (3) CAD (coronary artery disease) Current Visit: Yes Status: Chronic Per Cardiology: Troponin negative 1. CP free. History of CAD with CABG 4 in 2009. On asa, statin, Plavix, ACEI, BB. Qualifiers: Coronary Disease-Associated Artery/Lesion type: [place] artery [place] vs. transplanted heart: [place] heart Associated angina: without angina Qualified Code(s): I25.10 - Atherosclerotic heart disease of [place] coronary artery without angina pectoris Discussion w patient/family: The assessment and plan as outlined above was discussed with the patient and/or family members who expressed understanding and agreement. All questions were answered. Thank you for involving us in the care of your patient. Please call with any questions. I will discuss all the above with Dr. Bustamante and make changes as necessary. Subjective Principal diagnosis: PAF Interval history: Pt reports being more short of breath this morning. On BiPAP. Is back in A-Fib RVR. S/P 3 Sotalol doses. Objective Vital Signs, Last 4 Hours Temp Pulse Resp BP Pulse Ox 11/01/18 08:30 124 18 110/82 90 11/01/18 07:52 20 93 11/01/18 07:46 98.2 F 115 20 100/80 96 Vital Signs Temp Pulse Resp BP Pulse Ox 11/01/18 08:30 124 18 110/82 90 11/01/18 07:52 20 93 11/01/18 07:46 98.2 F 115 20 100/80 96 11/01/18 04:33 98.3 F 128 20 100/58 91 11/01/18 04:27 24 97 11/01/18 03:50 94/50 11/01/18 01:25 98.1 F 125 20 98/68 97 11/01/18 00:29 107 130/80 10/31/18 22:06 24 97 10/31/18 20:58 89 10/31/18 19:10 98.4 F 79 17 117/55 94 10/31/18 16:30 98.6 F 86 18 196/90 92 Intake and Output 10/31/18 11/01/18 11/01/18 23:59 07:59 15:59 Intake Total 124.5 / 126.1 51.6 / 171.6 120 / 171.6 Output Total 250 / 250 1350 / 1350 Balance -125.5 / -123.9 -1298.4 / -1178.4 120 / -1178.4 Intake: IV Fluids 4.5 / 6.1 1.6 / 1.6 Cardizem 50 MG In 0.9 % Sodium 4.5 / 6.1 1.6 / 1.6 Chloride 40 ML @ 2.5 MG/HR 2.5 mls/hr IVC CONT [facility] Rx#: [id number] Oral 120 / 120 50 / 170 120 / 170 Output: Urine 250 / 250 1350 / 1350 Other: Meal Dinner Breakfast Percent of Meal Consumed 100% 100% Weight 89.8 kg Blood Glucose* 248 144 Patient Weight 11/01/18 23:59 Weight 89.8 kg General: Other (on BiPAP) HEENT: Atraumatic, Normocephaly, Mucus Membranes Moist Neck: Normal carotid pulses Cardiac: Other (irregularly irregular) Lungs: Other (diminished) Neuro: Alert and responsive, No focal deficits noted Abdomen: Soft, Non-Tender Skin: No rashes noted on visualized skin Musculoskeletal: No Chest Wall Tenderness Extremities: No Clubbing, No Cyanosis, No Edema, Normal Pulses Results 11/01/18 05:42 11/01/18 05:42 Lab Results 11/01/18 11/01/18 11/01/18 05:42 05:42 05:42 WBC 7.9 Hgb 11.6 Hct 38.0 Plt Count 269 INR 1.5 Sodium 145 Potassium 4.2 Chloride 97 L Carbon Dioxide 42 H* BUN 32 H Creatinine 0.57 L Glucose 142 H Calcium 9.4 Magnesium 1.9 Short CBC 11/01/18 Range/Units 05:42 WBC 7.9 (4.3-11.1) K/mcL Hgb 11.6 (11.5-15.4) g/dL Hct 38.0 (35.3-44.9) % Plt Count 269 (140-400) K/mcL Neutrophils # 5.6 (1.6-8.9) K/mcL BMP 11/01/18 Range/Units 05:42 Sodium 145 (136-145) mEq/L Potassium 4.2 (3.5-5.1) mEq/L Chloride 97 L (98-107) mEq/L Carbon Dioxide 42 H* (23-29) mEq/L BUN 32 H (8-23) mg/dL Creatinine 0.57 L (0.60-1.20) mg/dL Glucose 142 H (70-105) mg/dL Calcium 9.4 (8.6-10.3) mg/dL Active Medications Artificial Tears (Akwa Tears) 1 drop BOTH EYES BID [facility] Stop: 04/29/19 09:01 Last Admin: 11/01/18 08:40 Dose: 1 drop Documented by: Aspirin (Aspirin Ec) 81 mg PO DAILY [facility] Stop: 04/29/19 09:01 Last Admin: 11/01/18 08:33 Dose: 81 mg Documented by: Atorvastatin Calcium (Lipitor) 40 mg PO DAILY [facility] Stop: 04/29/19 09:01 Last Admin: 11/01/18 08:33 Dose: 40 mg Documented by: Baclofen (Lioresal) 10 mg PO QID [facility] Stop: 04/29/19 09:01 Last Admin: 11/01/18 08:34 Dose: 10 mg Documented by: Budesonide/Formoterol Fumarate (Symbicort) 2 puff IH BIDR [facility]; Protocol Stop: 04/29/19 10:01 Last Admin: 11/01/18 07:52 Dose: 2 puff Documented by: Dextrose/Water (Dextrose 50% (Syg)) 25 ml IVP AD PRN PRN Reason: Hypoglycemia Stop: 04/29/19 07:45 Diltiazem HCl (Cardizem Cd) 180 mg PO DAILY [facility] Stop: 05/02/19 10:16 Last Admin: 11/01/18 08:33 Dose: 180 mg Documented by: Fenofibrate (Tricor) 162 mg PO DAILY [facility] Stop: 04/29/19 09:01 Last Admin: 11/01/18 08:33 Dose: 162 mg Documented by: Folic Acid (Folic Acid) 1 mg PO DAILY [facility] Stop: 04/29/19 09:01 Last Admin: 11/01/18 08:33 Dose: 1 mg Documented by: Furosemide (Lasix) 40 mg IVP BIDDIURETIC [facility] Stop: 04/29/19 17:01 Last Admin: 11/01/18 10:39 Dose: 40 mg Documented by: Glucagon (Glucagen) 1 mg IM ONCE PRN PRN Reason: Hypoglycemia Stop: 04/29/19 07:45 Glucose (Gluctose) 15 gm PO ONCE PRN PRN Reason: Hypoglycemia Stop: 04/29/19 07:45 Glucose (Gluctose) 30 gm PO ONCE PRN PRN Reason: Hypoglycemia Stop: 04/29/19 07:45 Dextrose (Dextrose 5%) 1,000 mls @ 100 mls/hr IVC .Q10H PRN PRN Reason: HYPOGLYCEMIA Stop: 04/29/19 07:45 Diltiazem HCl 50 mg/ Sodium (Chloride) 50 mls @ 2.5 mls/hr IVC CONT [facility]; Protocol Stop: 05/02/19 23:31 Last Infusion: 11/01/18 00:00 Dose: 0 mg/hr, 0 mls/hr Documented by: Insulin Human Lispro (Humalog) 0 units SQ TIDAC [facility]; Protocol Stop: 04/29/19 11:31 Last Admin: 11/01/18 08:40 Dose: 2 units Documented by: Levalbuterol HCl (Xopenex) 0.63 mg IH [id number] PRN PRN Reason: Shortness Of Breath Stop: 05/01/19 10:01 Naloxone HCl (Narcan) 0.4 mg IVP Q2MPRN PRN PRN Reason: SEE COMMENTS Stop: 04/29/19 07:14 Nystatin (Nystop) 1 appl TP TID [facility] Stop: 04/29/19 22:31 Last Admin: 11/01/18 08:40 Dose: 1 appl Documented by: Omeprazole (Prilosec) 20 mg PO [facility] Stop: 04/29/19 21:01 Last Admin: 10/31/18 20:44 Dose: 20 mg Documented by: Ondansetron HCl (Zofran) 4 mg IVP Q6HR PRN; Protocol PRN Reason: Nausea And Vomiting Stop: 04/29/19 13:50 Oxybutynin Chloride (Ditropan) 5 mg PO BID [facility] Stop: 04/29/19 09:01 Last Admin: 11/01/18 08:33 Dose: 5 mg Documented by: Pharmacy Profile Note (Patient Taking Own Medication) 1 each PO DAILY [facility] Stop: 04/29/19 09:01 Last Admin: 11/01/18 08:43 Dose: Not Given Documented by: Phenytoin (Dilantin Er) 400 mg PO HS [facility] Stop: 04/29/19 21:01 Last Admin: 10/31/18 20:43 Dose: 400 mg Documented by: Senna (Senna) 8.6 mg PO DAILY PRN PRN Reason: Constipation Stop: 04/29/19 07:15 Sotalol HCl (Betapace) 80 mg PO Q12H [facility] Stop: 05/01/19 12:31 Last Admin: 10/31/18 12:17 Dose: 80 mg Documented by: Vitamin D (Vitamin D) 1,000 unit PO DAILY [facility] Stop: 04/29/19 15:01 Last Admin: 11/01/18 08:33 Dose: 1,000 unit Documented by: Warfarin Sodium (Coumadin Perpt) 1 each PO DAILY@1800 PRN PRN Reason: SEE COMMENTS Stop: 05/01/19 18:01 Warfarin Sodium (Coumadin) 5 mg PO 1800 [facility] Stop: 11/01/18 18:01 - Imaging and Cardiology Echo: report reviewed - EKG Interpretation EKG results cardiology: other (12 hr tele AVG HR 121, A-Fib RVR) Consult Discharge Plan - Plan Referrals: NONE,PCP [Primary Care Provider] -
[2018-11-01] MEDS: cefTRIAXone 1,000 MG in Water for inj. (sterile) 20 ML 10 ML IVP SCH (15:22)
[2018-11-01] MEDS: MethylPREDNISolone 40 MG/ML VIAL IVP SCH (15:22)
[2018-11-01] MEDS: Levalbuterol Neb 0.63 MG/3 ML IH SCH ×2 (15:59→22:56)
[2018-11-01] MEDS: Doxycycline 100 MG in 0.9 % Sodium Chloride Mini Bag 100 ML IVPB SCH (17:59)
[2018-11-01] MEDS ORDERED: *HR* Warfarin 5 MG TABLET PO ONE (18:00)
[2018-11-02] MEDS: MethylPREDNISolone 40 MG/ML VIAL IVP SCH (00:24)
[2018-11-02] MEDS ORDERED: diazePAM 10 MG/2 ML SYRINGE IVP PRN (03:03)
[2018-11-02] MEDS: Levalbuterol Neb 0.63 MG/3 ML IH SCH ×4 (04:13→22:25)
[2018-11-02] MEDS: Doxycycline 100 MG in 0.9 % Sodium Chloride Mini Bag 100 ML IVPB SCH ×3 (05:58→18:48)
[2018-11-02 06:56] LABS: Mean Corpuscular HGB Conc 30.7 g/dL (31.6-35.5); Mean Corpuscular Hemoglobin 31.5 pg (28.0-33.3); Mean Corpuscular Volume 102.6 fL (83.0-100.0); Mean Platelet Volume 9.5 fL (9.4-12.4); Platelet Count 343 K/mcL (140-400); Red Blood Count 4.19 M/mcL (3.82-4.97); Red Cell Distribution Width 12.5 % (11.5-14.5)
[2018-11-02 06:57] LABS: Hemoglobin 13.2 g/dL (11.5-15.4)
[2018-11-02 07:06] LABS: INR 2.3; Prothrombin Time 25.7 Seconds (9.4-12.1)
[2018-11-02 07:20] LABS: BUN/Creatinine Ratio 75 (6-26); Blood Urea Nitrogen 33 mg/dL (8-23); Carbon Dioxide 43 mEq/L (23-29); Chloride 96 mEq/L (98-107); Glucose 198 mg/dL (70-105); Osmolality,Calculated 317 (280-300); Potassium 4.6 mEq/L (3.5-5.1); Sodium 147 mEq/L (136-145); eGFR For Non-African Americans > 60 (> 60)
--- NOTE | 2018-11-02 08:09 | Internal Med Progress Note ---
Hospitalist Progress Note - Encounter Date of Encounter: 11/02/18 Time of Encounter: 08:06 - Subjective Interval History: Patient seen and examined this morning at bedside. Patient somewhat lethargic and obtunded this morning. Patient was not on BiPAP overnight. Afebrile. Hypoxic as well. Other hemodynamic stable. Patient is arousable. - Exam Vitals: Temp Pulse Resp BP Pulse Ox 98.3 F 77 16 134/90 90 11/02/18 07:00 11/02/18 07:00 11/02/18 07:00 11/02/18 05:59 11/02/18 07:00 Exam: General: On bipap Respiratory exam: coarse breath sound with bipap. no rales, rhonchi, wheezes Cardiovascular exam: RRR, +S1, +S2. no murmur, gallop, rubs. GI/Abdominal exam: Non-distended, soft, no peritoneal signs. Extremities exam: trace pedal edema, pulses palpable in b/l lower extremities. Neurological exam: obtunded, arousable. opens eye to command - Assessment and Plan (1) Congestive heart failure Current Visit: Yes Status: Acute (2) Acute respiratory failure with hypoxia Current Visit: Yes Status: Acute (3) COPD exacerbation Current Visit: Yes Status: Acute (4) Diabetes Current Visit: Yes Status: Acute (5) Hypertension Current Visit: Yes Status: Acute (6) Dyslipidemia Current Visit: Yes Status: Acute (7) New onset atrial fibrillation Current Visit: Yes Status: Resolved (8) Abdominal distension Current Visit: Yes Status: Acute - Summary of Assessment and Plan Summary of Assessment and Plan: Assessment Diastolic CHF exacerbation acute hypercapnic respiratory failure Metabolic encephalopathy Possible COPD New onset A. fib with RVR Hypertension HLD Diabetes DVT prophylaxis. Plan - Continue bipap. Will consult pulmonology. - Patient with EF of 65% moderate diastolic dysfunction, sev pul HTN. Continue diuresis for now with Lasix [address] with still volume overload and b/l effusion - Patient may have of COPD given hypercapnia. Continue with BiPAP. Appreicate pulmology input. c/w empiric antibiotics with ceftriaxone and doxycycline for now. Continue with Symbicort. Obtain RIP. - Continue sliding scale and Accu-Cheks. Given started on steroids expect hyperglycemia. Monitor for now and may and Levemir - Recent started on Cardizem and sotalol for A. fib. Lisinopril held. Sinus rhythm today. prn metoprolol. c/w Coumadin given patient on Dilantin. Cardiology recommendation appreciated. - Continue daily weights, fluid restriction and strict and renal monitoring. - Time Spent with Patient Total time spent is greater than 50% in coordination of care (as documented) at patient's floor/unit and/or counseling patient: Internal Medicine: Result - Labs CBC & Chem 7: 11/02/18 06:43 11/02/18 06:43 Labs: Short CBC 11/02/18 Range/Units 06:43 WBC 8.7 (4.3-11.1) K/mcL Hgb 13.2 D (11.5-15.4) g/dL Hct 43.0 (35.3-44.9) % Plt Count 343 (140-400) K/mcL BMP 11/02/18 06:43 Sodium 147 H Potassium 4.6 Chloride 96 L Carbon Dioxide 43 H* BUN 33 H Creatinine 0.44 L Glucose 198 H Calcium 10.0 - ABG Interpretation ABG results: ABG ABG pH 7.32 pH Units (7.32-7.45) 10/31/18 00:58 ABG pCO2 89 mmHg (35-45) H* 10/31/18 00:58 ABG pO2 72 mmHg (85-104) L 10/31/18 00:58 ABG O2 Saturation 91 % (95-98) L 10/31/18 00:58 PT/INR, D-dimer PT 25.7 Seconds (9.4-12.1) H 11/02/18 06:43 - Impressions Impressions Chest CT 11/01/18 15:04 IMPRESSION: 1. Findings are most consistent with mild to moderate CHF, including cardiomegaly, bilateral pleural effusions, and interstitial pulmonary edema. 2. Multifocal airspace consolidation throughout both lungs likely reflects atelectasis, though underlying aspiration or pneumonia are not excluded. 3. Nonspecific 16 x 10 mm nodular opacity within the anterior right upper lobe, possibly a small focus of atelectasis or pneumonia. However, as a true pulmonary nodule is not excluded, further follow-up is as advised below. 4. Findings suggestive of chronic pulmonary arterial hypertension. RECOMMENDATIONS: Fleischner Society guidelines for follow-up and management of incidentally detected pulmonary nodules: Single Solid Nodule: Nodule size greater than 8 mm In a low-risk patient, consider CT at 3 months, PET/CT, or tissue sampling. In a high-risk patient, consider CT at 3 months, PET/CT, or tissue sampling. Radiology 2017 http://pubs.rsna.org/doi/full/10.1148/radiol.[email or web address] D/ / 11/01/2018 17:10:35 Dallas Dinh MD / [email or web address] Interpreting Provider: Dallas Dinh MD Consult Discharge Plan - Plan Referrals: NONE,PCP [Primary Care Provider] - (1) Congestive heart failure Qualifiers: Heart failure type: diastolic Heart failure chronicity: acute Qualified Code(s): I50.31 - Acute diastolic (congestive) heart failure (4) Diabetes Qualifiers: Diabetes mellitus type: type 2 (5) Hypertension Qualifiers: Qualified Code(s): I10 - Essential (primary) hypertension
[2018-11-02] MEDS: Insulin LISPRO 300 UNITS/3 ML VIAL SQ SCH ×3 (08:11→18:02)
[2018-11-02 08:17] LABS: ABG Base Excess 15 mEq/L (-2 to 3); ABG HCO3 48 mEq/L (21-27); ABG Oxygen Saturation 94 % (95-98); ABG PCO2 113 mmHg (35-45); ABG PH 7.23 pH Units (7.32-7.45); ABG PO2 94 mmHg (85-104); ABG TCO2 > 50 mEq/L (20-26); Blood Gas PEEP 8 cm H2O; Blood Gas Respiration Rate 14; Blood Gas VT 450 cc
[2018-11-02] MEDS: Furosemide 40 MG/4 ML VIAL IVP SCH ×2 (08:26→18:03)
[2018-11-02] MEDS: methylPREDNISolone 125 MG/2 ML VIAL IVP SCH ×2 (08:26→15:46)
[2018-11-02] MEDS: Aspirin Enteric Coated 81 MG Tablet PO SCH (08:27)
[2018-11-02] MEDS: Artificial Tears SOLN 15 ML BOTTLE BOTH EYES SCH ×2 (08:27→20:25)
[2018-11-02] MEDS: Diltiazem CD (24hr) 180 MG CAPSULE PO SCH (08:28)
[2018-11-02] MEDS: (Mirabegron [Myrbetriq] 50 MG) PO SCH (08:29)
[2018-11-02] MEDS: Baclofen 10 MG TABLET PO SCH ×4 (08:29→20:24)
[2018-11-02] MEDS: Folic Acid 1 MG TABLET PO SCH (08:29)
[2018-11-02] MEDS: Fenofibrate 54 MG TABLET PO SCH (08:30)
[2018-11-02] MEDS: Cholecalciferol (D-3) 1,000 UNIT TABLET PO SCH (08:30)
--- NOTE | 2018-11-02 08:32 | Cardiology Progress Note ---
Date of Encounter: 11/02/18 Time of Encounter: 08:30 Assessment and Plan (1) New onset atrial fibrillation Current Visit: Yes Status: Resolved Per Cardiology: New-onset PAF with 7.4 second pause with conversion to SR a few days ago. Did not desire pacer if clinically warranted. TSH and labs ok. On sotalol 80 mg PO 12 hours to maintain sinus rhythm. S/p a total of 5 doses-- apparently had a held dose at one point. SR on telemetry currently. Off cardizem gtt. On Cardizem CD 180mg PO daily, however on hold d/t MS changes with elevated CO2 levels on B iPap. Recommend continue PO Sotalol and PO cardizem if able. If recurrent afib, may need IV Lopressor or cardizem if unable to take PO meds. Off Norvasc and ACEI for now. SBP stable. Is DNR/CCA. Regarding long-term anticoagulation, has past intolerance to heparin-- HIT. Had been on Coumadin in the past-- hx of DVT; ?PE. Now on Coumadin with target INR 2.0-3.0; current INR 2.3. H&H stable. Avoid DOACs since on Dilantin. (2) CAD (coronary artery disease) Current Visit: Yes Status: Chronic Per Cardiology: Troponin negative 1. History of CAD with CABG 4 in 2009. On asa, statin. Qualifiers: Coronary Disease-Associated Artery/Lesion type: [place] artery [place] vs. transplanted heart: [place] heart Associated angina: without angina Qualified Code(s): I25.10 - Atherosclerotic heart disease of [place] coronary artery without angina pectoris (3) Congestive heart failure Current Visit: Yes Status: Acute Per Cardiology: Initial CXR showed CHF, BNP 439. On IV Lasix 40mg BID. Net I&O -3051ml. TTE LVEF 65%. Normal LV chamber size and function. Mild cLVH. Moderate LVDD. Atypical septal motion consistent with post-operative status. RV was not well visualized. Grossly, it is normal in function. Severe phtn. No significant valvular dysfun ction. On daily weights, strict I&O, 1.5 L fluid restriction. Now on BiPap 14L with CO2 113. Pulm c/s pending. Will check CXR. Will give extra dose IV Lasix 40mg x 1 now. Potassium and kidney function stable. Qualifiers: Heart failure type: diastolic Heart failure chronicity: acute Qualified Code(s): I50.31 - Acute diastolic (congestive) heart failure Discussion w patient/family: The assessment and plan as outlined above was discussed with the patient and/or family members who expressed understanding and agreement. All questions were answered. Thank you for involving us in the care of your patient. Please call with any questions. Subjective Principal diagnosis: PAF Interval history: Patient seen with nurse at bedside and patient now on BiPAP and somnolent. No family at bedside. Elevated CO2 levels per RN. Objective Vital Signs, Last 4 Hours Temp Pulse Resp BP Pulse Ox 11/02/18 07:00 98.3 F 77 16 90 11/02/18 05:59 98.1 F 75 18 134/90 92 General: No Apparent Distress HEENT: Atraumatic, Normocephaly Neck: No JVD, Normal carotid pulses Cardiac: Reg Rate and Rhythm, Normal S1 and S2, No Murmur Lungs: Normal Breath Sounds, No Wheeze, Rales, Rhonchi, Other (on BiPap, diminished anteriorly) Neuro: Alert and responsive, No focal deficits noted Abdomen: Soft, Non-Tender Skin: No rashes noted on visualized skin Musculoskeletal: No Chest Wall Tenderness Extremities: No Clubbing, No Cyanosis, No Edema, Normal Pulses Results 11/02/18 06:43 11/02/18 06:43 Lab Results Laboratory Tests 11/02/18 11/02/18 11/02/18 06:43 06:43 06:43 Hgb 13.2 D Hct 43.0 INR 2.3 D Creatinine 0.44 L Est GFR (Non-Af Amer) > 60 11/02/18 08:10 ABG pH 7.23 L ABG pCO2 113 H* ABG Total CO2 > 50 H Respiration Rate 14 O2 Delivery Device BiPAP Impressions Chest CT 11/01/18 15:04 IMPRESSION: 1. Findings are most consistent with mild to moderate CHF, including cardiomegaly, bilateral pleural effusions, and interstitial pulmonary edema. 2. Multifocal airspace consolidation throughout both lungs likely reflects atelectasis, though underlying aspiration or pneumonia are not excluded. 3. Nonspecific 16 x 10 mm nodular opacity within the anterior right upper lobe, possibly a small focus of atelectasis or pneumonia. However, as a true pulmonary nodule is not excluded, further follow-up is as advised below. 4. Findings suggestive of chronic pulmonary arterial hypertension. RECOMMENDATIONS: Fleischner Society guidelines for follow-up and management of incidentally detected pulmonary nodules: Single Solid Nodule: Nodule size greater than 8 mm In a low-risk patient, consider CT at 3 months, PET/CT, or tissue sampling. In a high-risk patient, consider CT at 3 months, PET/CT, or tissue sampling. Radiology 2017 http://pubs.rsna.org/doi/full/10.1148/radiol.0275105784 D/ / 11/01/2018 17:10:35 Dallas Dinh MD / [email or web address] Interpreting Provider: Dallas Dinh MD Active Medications Artificial Tears (Akwa Tears) 1 drop BOTH EYES BID [facility] Stop: 04/29/19 09:01 Last Admin: 11/02/18 08:27 Dose: Not Given Documented by: Aspirin (Aspirin Ec) 81 mg PO DAILY [facility] Stop: 04/29/19 09:01 Last Admin: 11/02/18 08:27 Dose: Not Given Documented by: Atorvastatin Calcium (Lipitor) 40 mg PO DAILY [facility] Stop: 04/29/19 09:01 Last Admin: 11/02/18 08:29 Dose: Not Given Documented by: Baclofen (Lioresal) 10 mg PO QID [facility] Stop: 04/29/19 09:01 Last Admin: 11/02/18 08:29 Dose: Not Given Documented by: Budesonide/Formoterol Fumarate (Symbicort) 2 puff IH BIDR [facility]; Protocol Stop: 04/29/19 10:01 Last Admin: 11/01/18 22:56 Dose: 2 puff Documented by: Dextrose/Water (Dextrose 50% (Syg)) 25 ml IVP AD PRN PRN Reason: Hypoglycemia Stop: 04/29/19 07:45 Diazepam (Valium) 2.5 mg IVP Q4H PRN PRN Reason: aggitation Stop: 05/04/19 03:04 Diltiazem HCl (Cardizem Cd) 180 mg PO DAILY [facility] Stop: 05/02/19 10:16 Last Admin: 11/02/18 08:28 Dose: Not Given Documented by: Fenofibrate (Tricor) 162 mg PO DAILY [facility] Stop: 04/29/19 09:01 Last Admin: 11/02/18 08:30 Dose: Not Given Documented by: Folic Acid (Folic Acid) 1 mg PO DAILY [facility] Stop: 04/29/19 09:01 Last Admin: 11/02/18 08:29 Dose: Not Given Documented by: Furosemide (Lasix) 40 mg IVP BIDDIURETIC [facility] Stop: 04/29/19 17:01 Last Admin: 11/02/18 08:26 Dose: 40 mg Documented by: Glucagon (Glucagen) 1 mg IM ONCE PRN PRN Reason: Hypoglycemia Stop: 04/29/19 07:45 Glucose (Gluctose) 15 gm PO ONCE PRN PRN Reason: Hypoglycemia Stop: 04/29/19 07:45 Glucose (Gluctose) 30 gm PO ONCE PRN PRN Reason: Hypoglycemia Stop: 04/29/19 07:45 Dextrose (Dextrose 5%) 1,000 mls @ 100 mls/hr IVC .Q10H PRN PRN Reason: HYPOGLYCEMIA Stop: 04/29/19 07:45 Diltiazem HCl 50 mg/ Sodium (Chloride) 50 mls @ 2.5 mls/hr IVC CONT [facility]; Protocol Stop: 05/02/19 23:31 Last Infusion: 11/01/18 00:00 Dose: 0 mg/hr, 0 mls/hr Documented by: Doxycycline Hyclate 100 mg/ (Sodium Chloride) 100 mls @ 100 mls/hr IVPB Q12HR [facility] Stop: 05/03/19 18:01 Last Admin: 11/02/18 05:58 Dose: 100 mls/hr Documented by: Ceftriaxone Sodium 1,000 mg/ (Sterile Water) 10 mls @ 600 mls/hr IVP DAILY [facility] Stop: 05/03/19 15:01 Last Admin: 11/01/18 15:22 Dose: 600 mls/hr Documented by: Insulin Human Lispro (Humalog) 0 units SQ TIDAC [facility]; Protocol Stop: 04/29/19 11:31 Last Admin: 11/02/18 08:11 Dose: Not Given Documented by: Levalbuterol HCl (Xopenex) 0.63 mg IH [id number] [facility] Stop: 05/03/19 16:01 Last Admin: 11/02/18 04:13 Dose: 0.63 mg Documented by: Methylprednisolone (Solu-Medrol) 60 mg IVP Q8HR [facility] Stop: 05/04/19 08:01 Last Admin: 11/02/18 08:26 Dose: 60 mg Documented by: Naloxone HCl (Narcan) 0.4 mg IVP Q2MPRN PRN PRN Reason: SEE COMMENTS Stop: 04/29/19 07:14 Nystatin (Nystop) 1 appl TP TID [facility] Stop: 04/29/19 22:31 Last Admin: 11/01/18 22:05 Dose: 1 appl Documented by: Omeprazole (Prilosec) 20 mg PO HS [facility] Stop: 04/29/19 21:01 Last Admin: 11/01/18 22:06 Dose: 20 mg Documented by: Ondansetron HCl (Zofran) 4 mg IVP Q6HR PRN; Protocol PRN Reason: Nausea And Vomiting Stop: 04/29/19 13:50 Oxybutynin Chloride (Ditropan) 5 mg PO BID [facility] Stop: 04/29/19 09:01 Last Admin: 11/02/18 08:28 Dose: Not Given Documented by: Pharmacy Profile Note (Patient Taking Own Medication) 1 each PO DAILY [facility] Stop: 04/29/19 09:01 Last Admin: 11/02/18 08:29 Dose: Not Given Documented by: Phenytoin (Dilantin Er) 400 mg PO HS [facility] Stop: 04/29/19 21:01 Last Admin: 11/01/18 22:05 Dose: 400 mg Documented by: Senna (Senna) 8.6 mg PO DAILY PRN PRN Reason: Constipation Stop: 04/29/19 07:15 Sotalol HCl (Betapace) 80 mg PO Q12H [facility] Stop: 05/01/19 12:31 Last Admin: 11/02/18 00:24 Dose: 80 mg Documented by: Vitamin D (Vitamin D) 1,000 unit PO DAILY [facility] Stop: 04/29/19 15:01 Last Admin: 11/02/18 08:30 Dose: Not Given Documented by: Warfarin Sodium (Coumadin Perpt) 1 each PO DAILY@1800 PRN PRN Reason: SEE COMMENTS Stop: 05/01/19 18:01 - Imaging and Cardiology Chest Xray: pending Consult Discharge Plan - Plan Referrals: NONE,PCP [Primary Care Provider] -
[2018-11-02] MEDS: cefTRIAXone 1,000 MG in Water for inj. (sterile) 20 ML 10 ML IVP SCH (08:34)
[2018-11-02] MEDS: Nystatin POWDER 30 GM BOTTLE TP SCH ×3 (08:35→20:25)
[2018-11-02] MEDS ORDERED: Furosemide 40 MG/4 ML VIAL IVP ONE (09:09)
--- NOTE | 2018-11-02 09:11 | Pulmonology Consult Note ---
Date of Encounter: 11/02/18 Time of Encounter: 08:00 Assessment and Plan (1) Acute on chronic diastolic (congestive) heart failure Current Visit: Yes Status: Acute Patient is shortness of breath most likely due to acute on chronic diastolic heart failure complicated by pulmonary by hypertension patient does not have cor pulmonale. Continue diuresis as tolerated to maintain sinus rhythm adequately controlled blood pressure. Salt water restriction education. (2) Acute respiratory failure with hypoxia Current Visit: Yes Status: Acute Patient worsening V/Q mismatch secondary to acute on chronic solid heart failure with background of the suspected COPD now complicated with hypercapnia this acute hypoxic and hypercapnic respiratory failure is multifactorial due to hydrostatic pulmonary edema due to acute on chronic diastolic heart failure with background of most likely small airway/COPD. Patient will qualify for BiPAP will need BiPAP therapy during naps and during nighttime when she goes back to the [facility]. Patient has poor exercise tolerance with his diastolic heart failure and hypertensive heart disease with now both hypoxic hypercapnic respiratory failure patient will need more likely recurrent hospital admissions patient has poor prognosis patient is pretty immobile recommended primary team to consult palliative care for future goals of care. (3) Suspected chronic obstructive pulmonary disease based on initial evaluation Current Visit: Yes Status: Acute Patient CT suggested chest without contrast shows significant small airway disease with patient being former smoker patient looks like has COPD will need a full pulmonary function test in the meantime patient reaches discharge send her home on albuterol nebulizer and Symbicort. But the current presentation most likely due to acute on chronic diastolic heart failure complicated by pulmonary hypertension continue with diuresis as tolerated will avoid steroids at this point. We will need outpatient evaluation. (4) Pulmonary hypertension Current Visit: Yes Status: Acute Patient has class II and class III pulmonary hypertension. (5) Pleural effusion Current Visit: Yes Status: Acute Patient has bilateral pleural effusion left greater than right most likely due to decompensated congestive heart failure the VQ mismatch is not getting better with diuresis recommended the primary team to consider left-sided thoracentesis with interventional radiology. Pulmonary we will sign off please call with questions History of Present Illness Consult date: 11/02/18 Requesting physician: Vilma Cee Reason for consult: other (shortness of breadth ) Chief complaint: Shortness of breath History of present illness: 72-year-old female with past medical history of the diastolic heart failure, hypertension, diabetes, morbid obesity suspected COPD with acute hypoxic respiratory failure complicated by hypercapnia pulmonary was consult that for this acute respiratory failure with hypoxia and hypercapnia. Patient's face her cough and sputum production is lot better denies any chest pain chest tightness denies any palpitation or syncope patient denies any abdominal symptoms patient denies any headache denies any focal neurological deficit. Past Med Surg Social Fam HX - Past Medical History Medical history: CHF, coronary artery disease, CVA, DVT, diabetes, hypertension, pulmonary embolus, seizures, other Additional medical history: right hemipareisis, hyperglycemia, neurologic deficit (right side), right arm pain, thrombocytopenia-heparin, artherosclerotic cardiovascular disease(ASCVD), anemia Psychiatric history: no psych history - Past Surgical History Surgical History: coronary bypass (CABG), hysterectomy, IVC filter Additional surgical history: heart cath, ivc filter placement, EGD/colonoscopy - Social History Smoking Status: Never smoker Smokeless Tobacco Status: No Alcohol use: none Drug use: none Medications and Allergies Acetaminophen [Pain Relief] 650 mg PO Q4H PRN 10/28/18 [History] Amlodipine Besylate/Benazepril [Lotrel 10-20 mg Capsule] 1 each PO DAILY 10/28/18 [History] Aspirin [Adult Aspirin] 81 mg PO DAILY 10/28/18 [History] Atorvastatin [Lipitor] 40 mg PO HS 10/28/18 [History] Baclofen [Lioresal] 10 mg PO QID 10/28/18 [History] Calcium Carbonate/Magnesium Ox [Oyster Shell Calcium-Magnes Tb] 1 each PO BID 10/28/18 [History] Chlorpheniramine/Dextromethorp [Coricidin Hbp Cough & Cold Tab] 1 each PO Q4H PRN 10/28/18 [History] Cholecalciferol (Vitamin D3) [Vitamin D] 50,000 unit PO DAILY 10/28/18 [History] Clopidogrel [Plavix] 75 mg PO DAILY 10/28/18 [History] Dextromethorphan HBr/Quinidine [Nuedexta 20-10 mg Capsule] 1 each PO BID 10/28/18 [History] Fenofibrate Nanocrystallized [Fenofibrate] 160 mg PO DAILY 10/28/18 [History] Folic Acid 1 mg PO DAILY 10/28/18 [History] Furosemide [Lasix] 20 mg PO DAILY 10/28/18 [History] Furosemide [Lasix] 40 mg PO DAILY 10/28/18 [History] Glucagon,Human Recombinant [Glucagen] 1 mg IJ PRN PRN 10/28/18 [History] MOM Conc [Milk of Magnesia Conc] 30 ml PO DAILY PRN 10/28/18 [History] Magnesium Hydroxide/Al Hydrox [Mag-Al Liquid] 30 ml PO DAILY PRN 10/28/18 [History] Melatonin 5 mg PO HS PRN 10/28/18 [History] Metoprolol Succinate [Kapspargo Sprinkle] 100 mg PO DAILY 10/28/18 [History] Mirabegron [Myrbetriq] 50 mg PO DAILY 10/28/18 [History] [place]-3/Dha/Epa/Fish Oil [Cvs Fish Oil 1,000 mg Softgel] 1 each PO DAILY 10/28/18 [History] OxyCODONE/APAP 5/325 [Percocet 5/325 MG] 1 each PO BID 10/28/18 [History] Oxybutynin Chloride [Ditropan Xl] 5 mg PO DAILY 10/28/18 [History] Pantoprazole Sodium 20 mg PO HS 10/28/18 [History] Phenytoin Sodium Extended [Phenytek] 400 mg PO HS 10/28/18 [History] Potassium Chloride [K-Tab ER] 20 meq PO DAILY 10/28/18 [History] Sennosides [Senna] 8.6 mg PO DAILY PRN 10/28/18 [History] dilTIAZem HCl [Diltiazem 24Hr Cd] 180 mg PO DAILY 10/28/18 [History] metFORMIN [Glucophage] 2,000 mg PO 0800 10/28/18 [History] Allergy/AdvReac Type Severity Reaction Status Date / Time heparin AdvReac Unknown See Verified 10/28/18 06:01 Comments All Systems: The remainder of the systems were reviewed and are negative Physical Examination Vital Signs: Vital Signs, Last 4 Hours Temp Pulse Resp BP Pulse Ox 11/02/18 07:00 98.3 F 77 16 90 11/02/18 05:59 98.1 F 75 18 134/90 92 General appearance: no acute distress Effort: mildly labored Auscultation: bilateral: diminished breath sounds Cardiovascular: regular rate and rhythm Gastrointestinal: normoactive bowel sounds Extremities: edema normal mental status, non-focal exam mood appropriate, affect normal Results - Laboratory Findings CBC and BMP: 11/02/18 06:43 11/02/18 06:43 ABG ABG pH 7.23 pH Units (7.32-7.45) L 11/02/18 08:10 ABG pCO2 113 mmHg (35-45) H* 11/02/18 08:10 ABG pO2 94 mmHg (85-104) 11/02/18 08:10 ABG O2 Saturation 94 % (95-98) L 11/02/18 08:10 PT/INR, D-dimer PT 25.7 Seconds (9.4-12.1) H 11/02/18 06:43 Abnormal lab findings: Abnormal lab results WBC 12.8 K/mcL (4.3-11.1) H 10/29/18 06:54 RBC 3.69 M/mcL (3.82-4.97) L 11/01/18 05:42 MCV 102.6 fL (83.0-100.0) H 11/02/18 06:43 MCHC 30.7 g/dL (31.6-35.5) L 11/02/18 06:43 MPV 9.3 fL (9.4-12.4) L 10/28/18 05:00 10.2 K/mcL (1.6-8.9) H 10/29/18 06:54 PT 25.7 Seconds (9.4-12.1) H 11/02/18 06:43 ABG pH 7.23 pH Units (7.32-7.45) L 11/02/18 08:10 ABG pCO2 113 mmHg (35-45) H* 11/02/18 08:10 ABG pO2 72 mmHg (85-104) L 10/31/18 00:58 ABG HCO3 48 mEq/L (21-27) H 11/02/18 08:10 ABG Total CO2 > 50 mEq/L (20-26) H 11/02/18 08:10 ABG O2 Saturation 94 % (95-98) L 11/02/18 08:10 ABG Base Excess 15 mEq/L (-2 to 3) H 11/02/18 08:10 VBG pCO2 73 mmHg (41-51) H* 10/31/18 16:57 VBG pO2 196 mmHg (25-50) H 10/31/18 16:57 VBG HCO3 44 mEq/L (21-27) H 10/31/18 16:57 Sodium 147 mEq/L (136-145) H 11/02/18 06:43 Chloride 96 mEq/L (98-107) L 11/02/18 06:43 Carbon Dioxide 43 mEq/L (23-29) H* 11/02/18 06:43 BUN 33 mg/dL (8-23) H 11/02/18 06:43 0.44 mg/dL (0.60-1.20) L 11/02/18 06:43 75 (6-26) H 11/02/18 06:43 Glucose 198 mg/dL (70-105) H 11/02/18 06:43 POC Glucose 252 mg/dL (70-99) H 11/01/18 16:25 6.4 % (-5.6) H 10/28/18 09:21 317 (280-300) H 11/02/18 06:43 0.2 mg/dL (0.3-1.0) L 10/28/18 09:21 B-Natriuretic Peptide 439 pg/mL (Less than 100) H 10/28/18 05:00 - Clinical Findings Intake & Output: Intake & Output 11/01/18 11/02/18 11/02/18 23:59 07:59 15:59 Intake Total 220 / 761.6 0 / 0 Output Total 550 / 550 Balance 220 / -588.4 -550 / -550 Weight 82.3 kg Consult Discharge Plan - Plan Referrals: NONE,PCP [Primary Care Provider] -
--- NOTE | 2018-11-02 10:32 | Event Note ---
Date of Encounter: 11/02/18 Time of Encounter: 10:30 - Cardiology Event Note ECG showed SR 63, QTc = 414ms. Discussed with Dr. Bustamante. Chest X-Ray 11/02/18 08:46 IMPRESSION: Patchy airspace opacities bilaterally, may be related to pulmonary edema versus pneumonia, mildly increased in the right hemithorax. Mild to moderate left pleural effusion, mildly increased. D/ / Eduardo Sanon MD / Eduardo Sanon MD Interpreting Provider: Eduardo Sanon MD
[2018-11-02 10:42] LABS: Adenovirus Not Detected (Not Detect); Bordetella Pertussis Not Detected (Not Detect); Chlamydophila pneumoniae Not Detected (Not Detect); Coronavirus 229E Not Detected (Not Detect); Coronavirus HKU1 Not Detected (Not Detect); Coronavirus NL63 Not Detected (Not Detect); Coronavirus OC43 Not Detected (Not Detect); Human Metapneumovirus Not Detected (Not Detect); Human Rhinovirus/Enterovirus Not Detected (Not Detect); Influenza A Subtype 2009 H1 Not Detected (Not Detect); Influenza A Untypeable Not Detected (Not Detect); Influenza B Not Detected (Not Detect); Mycoplasma pneumoniae Not Detected (Not Detect); Parainfluenza Virus 1 Not Detected (Not Detect); Parainfluenza Virus 2 Not Detected (Not Detect); Parainfluenza Virus 3 Not Detected (Not Detect); Parainfluenza Virus 4 Not Detected (Not Detect); Respiratory Syncytial Virus Not Detected (Not Detect)
[2018-11-02] MEDS: Budesonide/Formoterol 160/4.5 1 PUFF INH IH SCH ×2 (10:47→22:25)
--- NOTE | 2018-11-02 14:00 | Palliative - Consult Note ---
Date of Encounter: 11/02/18 Time of Encounter: 14:00 - Assessment and Plan (1) Dyspnea Current Visit: Yes Status: Acute Assessment and plan: Patient continues treatment with IV diuretics, steroids, bronchodilators, bipap support. Will reassess in am, if not improved, may need the addition of low dose opioids for dyspnea. She has not been able to tolerate having bipap off for any amount of time today. Qualifiers: Dyspnea type: unspecified Qualified Code(s): R06.00 - Dyspnea, unspecified (2) Anxiety Current Visit: Yes Status: Acute Assessment and plan: Will d/c IV Diazepam and transition to low dose Lorazepam every 6 hours PRN and monitor (3) Goals of care, counseling/discussion Current Visit: Yes Status: Acute Assessment and plan: Met with patient and her daughter Muna paris. Patient's son is out of state working, Muna plans on trying to get in touch with him to start home early, as he was supposed to not come home til over the weekend. Patient tolerating bipap, but states, "I don't want this forever". Discussed code status - she is adamant that she does not want intubated if her respiratory status declines further. Code status changed to DNR/DNI. She and DIL desire to maintain present level of care and continue IV diuretics and will revisit tomorrow. Discussed that if she continues to do poorly, will discuss option of comfort care. Patient/family verbalized understanding. (4) Palliative care encounter Current Visit: Yes Status: Acute (5) Acute respiratory failure with hypoxia Current Visit: Yes Status: Acute Assessment and plan: Pulmonology following. D/W Dr. Gomez. (6) COPD exacerbation Current Visit: Yes Status: Acute (7) Congestive heart failure Current Visit: Yes Status: Acute Qualifiers: Heart failure type: diastolic Heart failure chronicity: acute Qualified Code(s): I50.31 - Acute diastolic (congestive) heart failure Palliative-CN HPI - Data of Consult Consult date: 11/02/18 Requesting Physician: Vilma Cee MD Primary Care Provider: PCP NONE - Consult Narrative History of present illness: Ms. Means is a 72 year old female who has been a resident at [facility] for many years, presented with c/o shortness of breath, coughing that started a few days prior to admission. She has been hospitalized now for 6 days, being treated for new onset afib (cardiology following), exacerbation of CHF, and has been struggling with COPD/hypercapnic respiratory failure. She remains on IV diuretic therapy, and has had increasing respiratory distress. She is now requiring bipap. Patient was tried off this earlier today, and became hypoxic with oxygen saturation dropping in to the 70's. Echocardiogram earlier this admission demonstrated severe pulmonary hypertension, Left ventricular hypertrophy, EF of 65%. Her CO2 on ABG's have been as high as 113 this am. Pertinent medical history includes: CHF, COPD, DM, CVA, HTN. Upon my visit, she is awake and alert to person and place. Needs reoriented to time and situation. She does recognize and speaks with visitor in room, however, makes inappropriate statements at times. Patient's visitor states that she is pt daughter n law's mother. Claims pt has been in [facility] for 8 yrs following a CVA, and her son is out of state for work. CC: Vilma Cee MD - Time Spent with Patient Time: Total time spent is greater than 50% in coordination of care (as documented) at patient's floor/unit and/or counseling patient: Past Med Surg Social Fam HX - Past Medical History Medical history: CHF, coronary artery disease, CVA, DVT, diabetes, hypertension, pulmonary embolus, seizures, other Additional medical history: right hemipareisis, hyperglycemia, neurologic deficit (right side), right arm pain, thrombocytopenia-heparin, artherosclerotic cardiovascular disease(ASCVD), anemia Psychiatric history: no psych history - Past Surgical History Surgical History: coronary bypass (CABG), hysterectomy, IVC filter Additional surgical history: heart cath, ivc filter placement, EGD/colonoscopy - Social History Smoking Status: Never smoker Smokeless Tobacco Status: No Alcohol use: none Drug use: none Medications and Allergies Acetaminophen [Pain Relief] 650 mg PO Q4H PRN 10/28/18 [History] Amlodipine Besylate/Benazepril [Lotrel 10-20 mg Capsule] 1 each PO DAILY 10/28/18 [History] Aspirin [Adult Aspirin] 81 mg PO DAILY 10/28/18 [History] Atorvastatin [Lipitor] 40 mg PO HS 10/28/18 [History] Baclofen [Lioresal] 10 mg PO QID 10/28/18 [History] Calcium Carbonate/Magnesium Ox [Oyster Shell Calcium-Magnes Tb] 1 each PO BID 10/28/18 [History] Chlorpheniramine/Dextromethorp [Coricidin Hbp Cough & Cold Tab] 1 each PO Q4H PRN 10/28/18 [History] Cholecalciferol (Vitamin D3) [Vitamin D] 50,000 unit PO DAILY 10/28/18 [History] Clopidogrel [Plavix] 75 mg PO DAILY 10/28/18 [History] Dextromethorphan HBr/Quinidine [Nuedexta 20-10 mg Capsule] 1 each PO BID 10/28/18 [History] Fenofibrate Nanocrystallized [Fenofibrate] 160 mg PO DAILY 10/28/18 [History] Folic Acid 1 mg PO DAILY 10/28/18 [History] Furosemide [Lasix] 20 mg PO DAILY 10/28/18 [History] Furosemide [Lasix] 40 mg PO DAILY 10/28/18 [History] Glucagon,Human Recombinant [Glucagen] 1 mg IJ PRN PRN 10/28/18 [History] MOM Conc [Milk of Magnesia Conc] 30 ml PO DAILY PRN 10/28/18 [History] Magnesium Hydroxide/Al Hydrox [Mag-Al Liquid] 30 ml PO DAILY PRN 10/28/18 [History] Melatonin 5 mg PO HS PRN 10/28/18 [History] Metoprolol Succinate [Kapspargo Sprinkle] 100 mg PO DAILY 10/28/18 [History] Mirabegron [Myrbetriq] 50 mg PO DAILY 10/28/18 [History] [place]-3/Dha/Epa/Fish Oil [Cvs Fish Oil 1,000 mg Softgel] 1 each PO DAILY 10/28/18 [History] OxyCODONE/APAP 5/325 [Percocet 5/325 MG] 1 each PO BID 10/28/18 [History] Oxybutynin Chloride [Ditropan Xl] 5 mg PO DAILY 10/28/18 [History] Pantoprazole Sodium 20 mg PO HS 10/28/18 [History] Phenytoin Sodium Extended [Phenytek] 400 mg PO HS 10/28/18 [History] Potassium Chloride [K-Tab ER] 20 meq PO DAILY 10/28/18 [History] Sennosides [Senna] 8.6 mg PO DAILY PRN 10/28/18 [History] dilTIAZem HCl [Diltiazem 24Hr Cd] 180 mg PO DAILY 10/28/18 [History] metFORMIN [Glucophage] 2,000 mg PO 0800 10/28/18 [History] Allergy/AdvReac Type Severity Reaction Status Date / Time heparin AdvReac Unknown See Verified 10/28/18 06:01 Comments ROS unobtainable: due to mental status Palliative Care-Exam - Constitutional Vitals: Temp Pulse Resp BP Pulse Ox 98.3 F 71 22 171/76 92 11/02/18 11:15 11/02/18 11:15 11/02/18 11:15 11/02/18 11:15 11/02/18 10:45 General appearance: Present: mild distress - Head Head Exam: Present: normal inspection, normocephalic - Respiratory Respiratory exam: Present: accessory muscle use, decreased breath sounds, respiratory distress - Cardiovascular Cardiovascular exam: Present: +S1, +S2 - GI/Abdominal Exam GI/Abdominal exam: Present: distended, normal bowel sounds, soft - Catheter Type: Urethral (Dejesus) - Extremities Exam Additional comments: 1+ lower extremity edema - Neurological Exam Neurological exam: Present: alert Additional comments: Oriented to name and place only at present. Answers some questions appropriat jon at times. Can follow simple commands. PASTRANA - Skin Skin exam: Present: dry, pallor, warm Internal Medicine - CN: Reslt - Labs CBC & Chem 7: 11/02/18 06:43 11/02/18 06:43 Labs: Short CBC 11/02/18 Range/Units 06:43 WBC 8.7 (4.3-11.1) K/mcL Hgb 13.2 D (11.5-15.4) g/dL Hct 43.0 (35.3-44.9) % Plt Count 343 (140-400) K/mcL BMP 11/02/18 06:43 Sodium 147 H Potassium 4.6 Chloride 96 L Carbon Dioxide 43 H* BUN 33 H Creatinine 0.44 L Glucose 198 H Calcium 10.0 - ABG Interpretation ABG results: ABG ABG pH 7.23 pH Units (7.32-7.45) L 11/02/18 08:10 ABG pCO2 113 mmHg (35-45) H* 11/02/18 08:10 ABG pO2 94 mmHg (85-104) 11/02/18 08:10 ABG O2 Saturation 94 % (95-98) L 11/02/18 08:10 PT/INR, D-dimer PT 25.7 Seconds (9.4-12.1) H 11/02/18 06:43 - Impressions Impressions Chest CT 11/01/18 15:04 IMPRESSION: 1. Findings are most consistent with mild to moderate CHF, including cardiomegaly, bilateral pleural effusions, and interstitial pulmonary edema. 2. Multifocal airspace consolidation throughout both lungs likely reflects atelectasis, though underlying aspiration or pneumonia are not excluded. 3. Nonspecific 16 x 10 mm nodular opacity within the anterior right upper lobe, possibly a small focus of atelectasis or pneumonia. However, as a true pulmonary nodule is not excluded, further follow-up is as advised below. 4. Findings suggestive of chronic pulmonary arterial hypertension. RECOMMENDATIONS: Fleischner Society guidelines for follow-up and management of incidentally detected pulmonary nodules: Single Solid Nodule: Nodule size greater than 8 mm In a low-risk patient, consider CT at 3 months, PET/CT, or tissue sampling. In a high-risk patient, consider CT at 3 months, PET/CT, or tissue sampling. Radiology 2017 http://pubs.rsna.org/doi/full/10.1148/radiol.2155380452 D/ / 11/01/2018 17:10:35 Dallas Dinh MD / [facility] Interpreting Provider: Dallas Dinh MD Chest X-Ray 11/02/18 08:46 IMPRESSION: Patchy airspace opacities bilaterally, may be related to pulmonary edema versus pneumonia, mildly increased in the right hemithorax. Mild to moderate left pleural effusion, mildly increased. D/ / Eduardo Sanon MD / Eduardo Sanon MD Interpreting Provider: Eduardo Sanon MD Consult Discharge Plan - Plan Referrals: NONE,PCP [Primary Care Provider] - Palliative Quality Palliative Quality: Screen for Code Status: Yes, Screen for Goals of Care: Yes, Screen for Pain: Yes, If Pain Regimen Started, Initiate Bowel Regimen: NA, Screen for Nausea/Vomitting: Yes Code Status: 10/28/18 07:13 Resuscitation Status: Active [RES] Routine Comment: Resuscitation Status: Full Code 10/29/18 10:40 CODE [Resuscitation Status: Active] [RES] Routine Comment: Resuscitation Status: DNR-Comfort Care-Arrest Palliative Scale - Palliative Performance Scale How ambulatory is this patient?: Mainly sit / lie What is patient's level of activity and evidence of disease?: Unable normal job/work, Significant disease How much self-care assistance does patient require?: Mainly assistance How much oral intake does the patient have?: Normal or reduced What is this patient's level of consciousness?: Full or confusion Palliative Performance Score: 60 %
[2018-11-02] MEDS ORDERED: *HR* LORazepam 2 MG/ML VIAL IVP PRN (16:01)
[2018-11-02] MEDS ORDERED: *HR* Warfarin 2.5 MG TABLET PO ONE (18:00)
--- NOTE | 2018-11-02 18:19 | Electrocardiograph Report ---
[place] [address] Test Date: 2018-11-02 Pat Name: Amber Means Department: 111 Room: 2NE27 Gender: F Trumpet Player: [id number] : 1945 Requested By: Jason Guerrero Order Number: [id number] Reading MD: Filomena Driver Measurements Intervals [place] Rate: 75 P: 64 [place]: 163 QRS: 34 QRSD: 88 T: 48 QT: 385 QTc: 414 Interpretive Statements SINUS RHYTHM NONSPECIFIC T-WAVE ABNORMALITY Electronically Signed On 11-02-2018 18:17:55 EDT by Filomena Driver
[2018-11-02 18:51] LABS: ABG Base Excess 16 mEq/L (-2 to 3); ABG HCO3 48 mEq/L (21-27); ABG Oxygen Saturation 92 % (95-98); ABG PCO2 103 mmHg (35-45); ABG PH 7.28 pH Units (7.32-7.45); ABG PO2 79 mmHg (85-104); ABG TCO2 > 50 mEq/L (20-26)
[2018-11-03] MEDS: methylPREDNISolone 125 MG/2 ML VIAL IVP SCH (00:22)
[2018-11-03] MEDS: Levalbuterol Neb 0.63 MG/3 ML IH SCH ×4 (03:53→21:41)
[2018-11-03 04:39] LABS: ABG Base Excess 19 mEq/L (-2 to 3); ABG HCO3 47 mEq/L (21-27); ABG Oxygen Saturation 97 % (95-98); ABG PCO2 78 mmHg (35-45); ABG PH 7.39 pH Units (7.32-7.45); ABG PO2 93 mmHg (85-104); ABG TCO2 50 mEq/L (20-26); Blood Gas Respiration Rate 14; Blood Gas VT 450 cc
[2018-11-03] MEDS: Doxycycline 100 MG in 0.9 % Sodium Chloride Mini Bag 100 ML IVPB SCH ×2 (06:18→18:21)
--- NOTE | 2018-11-03 08:23 | Internal Med Progress Note ---
Hospitalist Progress Note - Encounter Date of Encounter: 11/03/18 Time of Encounter: 08:21 - Subjective Interval History: Patient seen and examined this morning at bedside. No acute overnight events. Patient off BiPAP and having breakfast well. Denying any complain and feeling better. Denies any chest pain or abdominal pain. - Exam Vitals: Temp Pulse Resp BP Pulse Ox 97.8 F 64 18 167/92 97 11/03/18 07:13 11/03/18 07:13 11/03/18 07:13 11/03/18 07:13 11/03/18 07:13 Exam: General: On nasal canula having breakfast Respiratory exam: coarse breath sound with bipap. rhonchi and rales b/l. Prolong expiratory phase. Cardiovascular exam: RRR, +S1, +S2. no murmur, gallop, rubs. GI/Abdominal exam: Non-distended, soft, no peritoneal signs. Extremities exam: 1+ pedal edema, pulses palpable in b/l lower extremities. Neurological exam: AOx3, baseline Lt UE and LE weakness. Cranial nerves intact - Assessment and Plan (1) Congestive heart failure Current Visit: Yes Status: Acute (2) Acute respiratory failure with hypoxia Current Visit: Yes Status: Acute (3) COPD exacerbation Current Visit: Yes Status: Acute (4) Diabetes Current Visit: Yes Status: Acute (5) Hypertension Current Visit: Yes Status: Acute (6) Dyslipidemia Current Visit: Yes Status: Acute (7) New onset atrial fibrillation Current Visit: Yes Status: Resolved (8) Abdominal distension Current Visit: Yes Status: Acute - Summary of Assessment and Plan Summary of Assessment and Plan: Assessment Diastolic CHF exacerbation acute hypercapnic respiratory failure Metabolic encephalopathy Possible COPD New onset A. fib with RVR Hypertension HLD Diabetes DVT prophylaxis. Plan - Patient BiPAP dependent as of now. We will attempt high flow in between for hypoxia. Recommended thoracentesis by pulmonology which patient initially refused and later agreed. However with supratherapeutic INR. We will hold wa rfarin in anticipation to thoracentesis once INR normalized. - Patient with EF of 65% moderate diastolic dysfunction, sev pul HTN. Continue diuresis for now with Lasix 40 BID. Fluid restriction, daily weights and renal monitoring - Patient may have of COPD given hypercapnia. c/w empiric antibiotics with ceftriaxone and doxycycline for now. Continue with Symbicort. Obtain RIP. - Continue sliding scale insulin and Accu-Cheks - c/w Cardizem and sotalol for A. fib. Lisinopril held. Sinus rhythm. prn metoprolol. Coumadin held to plan for thoracentesis. - Palliative care consulted for close of care discussion given her quality of life and severe hypertension and CHF high risk of recurrent heart failure. Patient now DNR comfort care arrest DNI. - Time Spent with Patient Total time spent is greater than 50% in coordination of care (as documented) at patient's floor/unit and/or counseling patient: Internal Medicine: Result - Labs CBC & Chem 7: 11/03/18 07:58 11/03/18 07:58 - ABG Interpretation ABG results: ABG ABG pH 7.39 pH Units (7.32-7.45) 11/03/18 04:35 ABG pCO2 78 mmHg (35-45) H* 11/03/18 04:35 ABG pO2 93 mmHg (85-104) 11/03/18 04:35 ABG O2 Saturation 97 % (95-98) 11/03/18 04:35 PT/INR, D-dimer PT 25.7 Seconds (9.4-12.1) H 11/02/18 06:43 - Impressions Impressions Chest X-Ray 11/02/18 08:46 IMPRESSION: Patchy airspace opacities bilaterally, may be related to pulmonary edema versus pneumonia, mildly increased in the right hemithorax. Mild to moderate left pleural effusion, mildly increased. D/ / Eduardo Sanon MD / Eduardo Sanon MD Interpreting Provider: Eduardo Sanon MD Consult Discharge Plan - Plan Referrals: NONE,PCP [Primary Care Provider] - (1) Congestive heart failure Qualifiers: Heart failure type: diastolic Heart failure chronicity: acute Qualified Code(s): I50.31 - Acute diastolic (congestive) heart failure (4) Diabetes Qualifiers: Diabetes mellitus type: type 2 (5) Hypertension Qualifiers: Qualified Code(s): I10 - Essential (primary) hypertension
[2018-11-03] MEDS: Furosemide 40 MG/4 ML VIAL IVP SCH ×2 (08:39→16:40)
[2018-11-03] MEDS: MethylPREDNISolone 40 MG/ML VIAL IVP SCH (08:39)
[2018-11-03] MEDS: cefTRIAXone 1,000 MG in Water for inj. (sterile) 20 ML 10 ML IVP SCH (08:40)
[2018-11-03] MEDS: Cholecalciferol (D-3) 1,000 UNIT TABLET PO SCH (08:41)
[2018-11-03 08:42] LABS: Basophils % 0.2 %; Eosinophils % 0.4 %; Hematocrit 36.6 % (35.3-44.9); Immature Granulocytes % 0.2 % (0-4); Lymphocytes # 1.5 K/mcL (0.6-4.6); Lymphocytes % 18.2 %; Mean Corpuscular HGB Conc 31.4 g/dL (31.6-35.5); Mean Corpuscular Hemoglobin 31.6 pg (28.0-33.3); Mean Corpuscular Volume 100.5 fL (83.0-100.0); Mean Platelet Volume 9.7 fL (9.4-12.4); Monocytes # 0.8 K/mcL (0.0-1.3); Neutrophils # 5.9 K/mcL (1.6-8.9); Platelet Count 297 K/mcL (140-400); Red Blood Count 3.64 M/mcL (3.82-4.97); Red Cell Distribution Width 12.2 % (11.5-14.5)
[2018-11-03] MEDS: Diltiazem CD (24hr) 180 MG CAPSULE PO SCH (08:42)
[2018-11-03] MEDS: Fenofibrate 54 MG TABLET PO SCH (08:42)
[2018-11-03] MEDS: Baclofen 10 MG TABLET PO SCH ×4 (08:42→22:39)
[2018-11-03] MEDS: Insulin LISPRO 300 UNITS/3 ML VIAL SQ SCH ×3 (08:43→16:41)
[2018-11-03] MEDS: Folic Acid 1 MG TABLET PO SCH (08:43)
[2018-11-03] MEDS: Aspirin Enteric Coated 81 MG Tablet PO SCH (08:43)
[2018-11-03] MEDS: (Mirabegron [Myrbetriq] 50 MG) PO SCH (08:43)
[2018-11-03] MEDS: Artificial Tears SOLN 15 ML BOTTLE BOTH EYES SCH ×2 (08:45→22:39)
[2018-11-03] MEDS: Nystatin POWDER 30 GM BOTTLE TP SCH ×3 (08:45→22:39)
[2018-11-03 09:00] LABS: Hemoglobin 11.5 g/dL (11.5-15.4)
[2018-11-03 09:03] LABS: INR 4.4; Prothrombin Time 49.3 Seconds (9.4-12.1)
[2018-11-03 09:18] LABS: BUN/Creatinine Ratio 78 (6-26); Blood Urea Nitrogen 28 mg/dL (8-23); Calcium 8.5 mg/dL (8.6-10.3); Carbon Dioxide 40 mEq/L (23-29); Chloride 89 mEq/L (98-107); Glucose 145 mg/dL (70-105); Osmolality,Calculated 288 (280-300); Potassium 4.3 mEq/L (3.5-5.1); Sodium 135 mEq/L (136-145); eGFR For Non-African Americans > 60 (> 60)
--- NOTE | 2018-11-03 09:28 | Palliative Progress Note ---
Date of Encounter: 11/03/18 Time of Encounter: 09:20 - Assessment and plan (1) Dyspnea Current Visit: Yes Status: Acute Assessment and plan: Slightly better this am, was able to tolerate bipap off for breakfast, approx 90 min. Patient now agreeable to thoracentesis. Continues with supportive oxygen/bipap/steroids/diurectics. Qualifiers: Dyspnea type: unspecified Qualified Code(s): R06.00 - Dyspnea, unspecified (2) Anxiety Current Visit: Yes Status: Acute Assessment and plan: Has low dose Lorazeapam if needed. Has not utilized. Monitor (3) Goals of care, counseling/discussion Current Visit: Yes Status: Acute Assessment and plan: Will meet again with pt and LORI Toro later today when she arrives. Patient states that her son will be back in town tomorrow. Code status changed to DNR/DNI yesterday. (4) Palliative care encounter Current Visit: Yes Status: Acute (5) Acute respiratory failure with hypoxia Current Visit: Yes Status: Acute (6) COPD exacerbation Current Visit: Yes Status: Acute (7) Congestive heart failure Current Visit: Yes Status: Acute Qualifiers: Heart failure type: diastolic Heart failure chronicity: acute Qualified Code(s): I50.31 - Acute diastolic (congestive) heart failure - Time Spent With Patient Total time spent is greater than 50% in coordination of care (as documented) at patient's floor/unit and/or counseling patient: - Subjective Interval history: Patient drowsy on bipap during my visit, but does awaken easily. Primary nurse reports that patient was able to be off bipap for about 90 min this am on high flow oxygen, but did desaturate and required bipap replaced. States she had better night last pm, and feels slightly better with her breathing. No family at bedside. Nurse reports that pt did refuse thoracentesis earlier this am, however, now she is agreeable. However INR 4.4. Primary nurse notifying Dr. Cee. - Constitutional Vitals: Abnormal lab results WBC 12.8 K/mcL (4.3-11.1) H 10/29/18 06:54 RBC 3.64 M/mcL (3.82-4.97) L 11/03/18 07:58 MCV 100.5 fL (83.0-100.0) H 11/03/18 07:58 MCHC 31.4 g/dL (31.6-35.5) L 11/03/18 07:58 MPV 9.3 fL (9.4-12.4) L 10/28/18 05:00 10.2 K/mcL (1.6-8.9) H 10/29/18 06:54 PT 49.3 Seconds (9.4-12.1) H* D 11/03/18 07:58 INR 4.4 H* D 11/03/18 07:58 ABG pH 7.28 pH Units (7.32-7.45) L 11/02/18 18:44 ABG pCO2 78 mmHg (35-45) H* 11/03/18 04:35 ABG pO2 79 mmHg (85-104) L 11/02/18 18:44 ABG HCO3 47 mEq/L (21-27) H 11/03/18 04:35 ABG Total CO2 50 mEq/L (20-26) H 11/03/18 04:35 ABG O2 Saturation 92 % (95-98) L 11/02/18 18:44 ABG Base Excess 19 mEq/L (-2 to 3) H 11/03/18 04:35 VBG pCO2 73 mmHg (41-51) H* 10/31/18 16:57 VBG pO2 196 mmHg (25-50) H 10/31/18 16:57 VBG HCO3 44 mEq/L (21-27) H 10/31/18 16:57 Sodium 135 mEq/L (136-145) L 11/03/18 07:58 Chloride 89 mEq/L (98-107) L 11/03/18 07:58 Carbon Dioxide 40 mEq/L (23-29) H* 11/03/18 07:58 BUN 28 mg/dL (8-23) H 11/03/18 07:58 0.36 mg/dL (0.60-1.20) L 11/03/18 07:58 78 (6-26) H 11/03/18 07:58 Glucose 145 mg/dL (70-105) H 11/03/18 07:58 POC Glucose 140 mg/dL (70-99) H 11/02/18 17:06 6.4 % (-5.6) H 10/28/18 09:21 317 (280-300) H 11/02/18 06:43 Calcium 8.5 mg/dL (8.6-10.3) L 11/03/18 07:58 0.2 mg/dL (0.3-1.0) L 10/28/18 09:21 B-Natriuretic Peptide 439 pg/mL (Less than 100) H 10/28/18 05:00 General appearance: Present: no acute distress - Respiratory Respiratory exam: Present: decreased breath sounds Additional comments: Faint crackles bilateral lower lobes - Cardiovascular Cardiovascular exam: Present: +S1, +S2 - GI/Abdominal GI/Abdominal exam: Present: normal bowel sounds, soft - Additional comments: Dejesus with clear yellow urine - Extremities Exam Additional comments: 1+ edema bilateral lower extremities - Neurological Exam Neurological exam: Present: alert, oriented X3, strengths equal and symetr throughout - Skin Skin exam: Present: dry, pallor, warm Palliative Quality Palliative Quality: Screen for Code Status: Yes, Screen for Goals of Care: Yes, Screen for Pain: Yes, If Pain Regimen Started, Initiate Bowel Regimen: NA, Screen for Nausea/Vomitting: Yes Code Status: 10/28/18 07:13 Resuscitation Status: Active [RES] Routine Comment: Resuscitation Status: Full Code 10/29/18 10:40 CODE [Resuscitation Status: Active] [RES] Routine Comment: Resuscitation Status: DNR-Comfort Care-Arrest 11/02/18 15:55 DNR [Resuscitation Status: Active] [RES] Routine Comment: Resuscitation Status: [id number] - Labs CBC & Chem 7: 11/03/18 07:58 11/03/18 07:58 Labs: Laboratory Results - last 24 hr 11/01/18 11/02/18 11/02/18 19:51 06:10 07:37 WBC RBC Hgb Hct MCV MCH MCHC RDW Plt Count MPV Immature Gran % Seg Neutrophils % Lymphocytes % Monocytes % Eosinophils % Basophils % Neutrophils # Lymphocytes # Monocytes # Eosinophils # Basophils # PT INR Sample Site ABG pH ABG pCO2 ABG pO2 ABG HCO3 ABG Total CO2 ABG O2 Saturation ABG Base Excess Andrzej Test Respiration Rate O2 Delivery Device Inspired O2 Tidal Volume Sodium Potassium Chloride Carbon Dioxide BUN Creatinine Est GFR ( Amer) Est GFR (Non-Af Amer) BUN/Creatinine Ratio Glucose POC Glucose 254 H 198 H 189 H Calculated Osmolality Calcium Chlamy pneumoniae PCR Adenovirus (PCR) B. pertussis DNA (PCR) B.parapertussis DNA PCR Coronavirus OC43 (PCR) Coronavirus HKU1 (PCR) Coronavirus 229E (PCR) Coronavirus NL63 (PCR) Human Metapneumovir PCR Influenza A (H1) PCR Influ A (H1N1/09) PCR Influenza A (H3) PCR Influenza A Untype (PCR) Influenza Type B (PCR) M.pneumoniae DNA (PCR) Parainfluenza 1 (PCR) Parainfluenza 2 (PCR) Parainfluenza 3 (PCR) Parainfluenza 4 (PCR) RSV (PCR) Entero/Rhino (PCR) Person Notif of Crit 11/02/18 11/02/18 11/02/18 09:00 11:14 17:06 WBC RBC Hgb Hct MCV MCH MCHC RDW Plt Count MPV Immature Gran % Seg Neutrophils % Lymphocytes % Monocytes % Eosinophils % Basophils % Neutrophils # Lymphocytes # Monocytes # Eosinophils # Basophils # PT INR Sample Site ABG pH ABG pCO2 ABG pO2 ABG HCO3 ABG Total CO2 ABG O2 Saturation ABG Base Excess Andrzej Test Respiration Rate O2 Delivery Device Inspired O2 Tidal Volume Sodium Potassium Chloride Carbon Dioxide BUN Creatinine Est GFR ( Amer) Est GFR (Non-Af Amer) BUN/Creatinine Ratio Glucose POC Glucose 176 H 140 H Calculated Osmolality Calcium Chlamy pneumoniae PCR Not Detected Adenovirus (PCR) Not Detected B. pertussis DNA (PCR) Not Detected B.parapertussis DNA PCR Not Detected Coronavirus OC43 (PCR) Not Detected Coronavirus HKU1 (PCR) Not Detected Coronavirus 229E (PCR) Not Detected Coronavirus NL63 (PCR) Not Detected Human Metapneumovir PCR Not Detected Influenza A (H1) PCR Not Detected Influ A (H1N1/09) PCR Not Detected Influenza A (H3) PCR Not Detected Influenza A Untype (PCR) Not Detected Influenza Type B (PCR) Not Detected M.pneumoniae DNA (PCR) Not Detected Parainfluenza 1 (PCR) Not Detected Parainfluenza 2 (PCR) Not Detected Parainfluenza 3 (PCR) Not Detected Parainfluenza 4 (PCR) Not Detected RSV (PCR) Not Detected Entero/Rhino (PCR) Not Detected Person Notif of Crit 11/02/18 11/03/18 11/03/18 18:44 04:35 07:58 WBC RBC Hgb Hct MCV MCH MCHC RDW Plt Count MPV Immature Gran % Seg Neutrophils % Lymphocytes % Monocytes % Eosinophils % Basophils % Neutrophils # Lymphocytes # Monocytes # Eosinophils # Basophils # PT INR Sample Site R Brach R Radial ABG pH 7.28 L 7.39 ABG pCO2 103 H* 78 H* ABG pO2 79 L 93 ABG HCO3 48 H 47 H ABG Total CO2 > 50 H 50 H ABG O2 Saturation 92 L 97 ABG Base Excess 16 H 19 H Andrzej Test Positive Positive Respiration Rate 14 O2 Delivery Device Cannula BiPAP Inspired O2 6.0 80.0 Tidal Volume 450 Sodium 135 L Potassium 4.3 Chloride 89 L Carbon Dioxide 40 H* BUN 28 H Creatinine 0.36 L Est GFR ( Amer) > 60 Est GFR (Non-Af Amer) > 60 BUN/Creatinine Ratio 78 H Glucose 145 H POC Glucose Calculated Osmolality 288 Calcium 8.5 L Chlamy pneumoniae PCR Adenovirus (PCR) B. pertussis DNA (PCR) B.parapertussis DNA PCR Coronavirus OC43 (PCR) Coronavirus HKU1 (PCR) Coronavirus 229E (PCR) Coronavirus NL63 (PCR) Human Metapneumovir PCR Influenza A (H1) PCR Influ A (H1N1/09) PCR Influenza A (H3) PCR Influenza A Untype (PCR) Influenza Type B (PCR) M.pneumoniae DNA (PCR) Parainfluenza 1 (PCR) Parainfluenza 2 (PCR) Parainfluenza 3 (PCR) Parainfluenza 4 (PCR) RSV (PCR) Entero/Rhino (PCR) Person Notif of Crit kan 11/03/18 11/03/18 07:58 07:58 WBC 8.3 RBC 3.64 L Hgb 11.5 D Hct 36.6 MCV 100.5 H MCH 31.6 MCHC 31.4 L RDW 12.2 Plt Count 297 MPV 9.7 Immature Gran % 0.2 Seg Neutrophils % 71.0 Lymphocytes % 18.2 Monocytes % 10.0 Eosinophils % 0.4 Basophils % 0.2 Neutrophils # 5.9 Lymphocytes # 1.5 Monocytes # 0.8 Eosinophils # 0.0 Basophils # 0.0 PT 49.3 H* D INR 4.4 H* D Sample Site ABG pH ABG pCO2 ABG pO2 ABG HCO3 ABG Total CO2 ABG O2 Saturation ABG Base Excess Andrzej Test Respiration Rate O2 Delivery Device Inspired O2 Tidal Volume Sodium Potassium Chloride Carbon Dioxide BUN Creatinine Est GFR ( Amer) Est GFR (Non-Af Amer) BUN/Creatinine Ratio Glucose POC Glucose Calculated Osmolality Calcium Chlamy pneumoniae PCR Adenovirus (PCR) B. pertussis DNA (PCR) B.parapertussis DNA PCR Coronavirus OC43 (PCR) Coronavirus HKU1 (PCR) Coronavirus 229E (PCR) Coronavirus NL63 (PCR) Human Metapneumovir PCR Influenza A (H1) PCR Influ A (H1N1/09) PCR Influenza A (H3) PCR Influenza A Untype (PCR) Influenza Type B (PCR) M.pneumoniae DNA (PCR) Parainfluenza 1 (PCR) Parainfluenza 2 (PCR) Parainfluenza 3 (PCR) Parainfluenza 4 (PCR) RSV (PCR) Entero/Rhino (PCR) Person Notif of Crit - ABG Interpretation ABG results: ABG ABG pH 7.39 pH Units (7.32-7.45) 11/03/18 04:35 ABG pCO2 78 mmHg (35-45) H* 11/03/18 04:35 ABG pO2 93 mmHg (85-104) 11/03/18 04:35 ABG O2 Saturation 97 % (95-98) 11/03/18 04:35 PT/INR, D-dimer PT 49.3 Seconds (9.4-12.1) H* D 11/03/18 07:58 Palliative Scale - Palliative Performance Scale How ambulatory is this patient?: Mainly sit / lie What is patient's level of activity and evidence of disease?: Unable normal j ob/work, Significant disease How much self-care assistance does patient require?: Mainly assistance How much oral intake does the patient have?: Normal or reduced What is this patient's level of consciousness?: Full or confusion Palliative Performance Score: 60 % Consult Discharge Plan - Plan Referrals: NONE,PCP [Primary Care Provider] -
--- NOTE | 2018-11-03 10:29 | Electrocardiograph Report ---
[address] [address] Test Date: 2018-11-03 Pat Name: Amber Means Department: 111 Room: 2NE27 Gender: F Chain Mender: [id number] : 1945 Requested By: Jason Guerrero Order Number: [id number] Reading MD: Braulio Schmid Measurements Intervals [place] Rate: 62 P: 28 NC: 129 QRS: 37 QRSD: 90 T: 46 QT: 439 QTc: 445 Interpretive Statements SINUS RHYTHM WITH OCCASIONAL SUPRAVENTRICULAR PREMATURE COMPLEXES Electronically Signed On 11-03-2018 10:27:32 EDT by Braulio Schmid
[2018-11-03] MEDS: Budesonide/Formoterol 160/4.5 1 PUFF INH IH SCH ×2 (10:51→21:41)
[2018-11-03] MEDS ORDERED: *HR* Metoprolol 5 MG/5 ML VIAL IVP ONE ×3 (17:54→18:28)
[2018-11-03 18:13] LABS: ABG Base Excess 18 mEq/L (-2 to 3); ABG HCO3 46 mEq/L (21-27); ABG Oxygen Saturation 89 % (95-98); ABG PCO2 77 mmHg (35-45); ABG PH 7.39 pH Units (7.32-7.45); ABG PO2 62 mmHg (85-104); ABG TCO2 49 mEq/L (20-26); Blood Gas PEEP 8 cm H2O; Blood Gas Respiration Rate 14; Blood Gas VT 450 cc
[2018-11-04] MEDS: Levalbuterol Neb 0.63 MG/3 ML IH SCH ×4 (03:34→21:35)
[2018-11-04 03:36] LABS: INR 4.4; Prothrombin Time 50.2 Seconds (9.4-12.1)
[2018-11-04 03:39] LABS: BUN/Creatinine Ratio 54 (6-26); Blood Urea Nitrogen 15 mg/dL (8-23); Calcium 8.4 mg/dL (8.6-10.3); Carbon Dioxide 45 mEq/L (23-29); Chloride 89 mEq/L (98-107); Glucose 151 mg/dL (70-105); Osmolality,Calculated 284 (280-300); Potassium 3.8 mEq/L (3.5-5.1); Sodium 135 mEq/L (136-145); eGFR For Non-African Americans > 60 (> 60)
[2018-11-04 04:49] LABS: ABG Base Excess 17 mEq/L (-2 to 3); ABG HCO3 47 mEq/L (21-27); ABG Oxygen Saturation 99 % (95-98); ABG PCO2 91 mmHg (35-45); ABG PH 7.32 pH Units (7.32-7.45); ABG PO2 135 mmHg (85-104); ABG TCO2 50 mEq/L (20-26); Blood Gas Modality AVAPS; Blood Gas PEEP 8 cm H2O; Blood Gas Respiration Rate 14; Blood Gas VT 450 cc
[2018-11-04] MEDS: Doxycycline 100 MG in 0.9 % Sodium Chloride Mini Bag 100 ML IVPB SCH ×2 (05:30→17:03)
[2018-11-04] MEDS: Insulin LISPRO 300 UNITS/3 ML VIAL SQ SCH ×3 (08:19→16:21)
[2018-11-04] MEDS: cefTRIAXone 1,000 MG in Water for inj. (sterile) 20 ML 10 ML IVP SCH (08:43)
[2018-11-04] MEDS: Artificial Tears SOLN 15 ML BOTTLE BOTH EYES SCH ×2 (08:43→20:08)
[2018-11-04] MEDS: Nystatin POWDER 30 GM BOTTLE TP SCH ×3 (08:44→20:08)
[2018-11-04] MEDS: Furosemide 40 MG/4 ML VIAL IVP SCH ×2 (08:44→16:21)
[2018-11-04] MEDS: (Mirabegron [Myrbetriq] 50 MG) PO SCH (08:44)
[2018-11-04] MEDS: MethylPREDNISolone 40 MG/ML VIAL IVP SCH (08:45)
[2018-11-04] MEDS: Cholecalciferol (D-3) 1,000 UNIT TABLET PO SCH (08:54)
[2018-11-04] MEDS: Aspirin Enteric Coated 81 MG Tablet PO SCH (08:54)
[2018-11-04] MEDS: Diltiazem CD (24hr) 180 MG CAPSULE PO SCH (08:54)
[2018-11-04] MEDS: Baclofen 10 MG TABLET PO SCH ×4 (08:54→19:48)
[2018-11-04] MEDS: Folic Acid 1 MG TABLET PO SCH (08:55)
[2018-11-04] MEDS: Fenofibrate 54 MG TABLET PO SCH (08:55)
[2018-11-04] MEDS: Budesonide/Formoterol 160/4.5 1 PUFF INH IH SCH ×2 (10:22→21:36)
--- NOTE | 2018-11-04 10:34 | Palliative Progress Note ---
Date of Encounter: 11/04/18 Time of Encounter: 09:45 - Assessment and plan (1) Acute respiratory failure with hypoxia Current Visit: Yes Status: Acute Assessment and plan: Continue supportive oxygen/bipap/steroids/diuretics at this time. (2) COPD exacerbation Current Visit: Yes Status: Acute (3) Dyspnea Current Visit: Yes Status: Acute Assessment and plan: Patient denies dyspnea. Educated patient on difference between Angelo and BiPAP. Patient encouraged to utilize BiPAP at night and when sleeping. Qualifiers: Dyspnea type: unspecified Qualified Code(s): R06.00 - Dyspnea, unspecified (4) Anxiety Current Visit: Yes Status: Acute Assessment and plan: Patient denies anxiety at this time. Patient has Ativan PRN. (5) Palliative care encounter Current Visit: Yes Status: Acute (6) Goals of care, counseling/discussion Current Visit: Yes Status: Acute Assessment and plan: Had 45 minute discussion regarding goals of care with patient, her son, and daughter in law present at bedside. Reviewed lab work showing INR remaining to be 4.4 and CO2 increase to 91. Reviewed limitation of oxygen supplementation of nursing homes versus current [place] therapy. Reviewed goals and risks associated with thoracentesis, which the goal is to be completed on Tuesday. Educated on recurrence possibility with thoracentesis and briefed option of Pleurx in the future if recurs. Reviewed hospice program, availability, and eligibility. Dr. Foley came to bedside towards end of family meeting and plans today consist of Vitamin K to correct INR for thoracentesis Tuesday. Family and patient agree to continue current treatment plan at this time and re-evaluate post thoracentesis. Family would like some time to discuss options. Palliative care will follow up with patient/family tomorrow. (7) Acute on chronic diastolic (congestive) heart failure Current Visit: Yes Status: Acute Assessment and plan: Patient experienced episode of Afib with RVR last evening, reports feeling better now. Continued Pedal edema +1. - Time Spent With Patient Total time spent is greater than 50% in coordination of care (as documented) at patient's floor/unit and/or counseling patient: - Subjective Interval history: Patient sitting up in bed, intermittently nodding to sleep, upon arrival for assessment. Patient easily arouses with verbal stimulation. Patient's currently wearing Angelo at 40LPM, had wore BiPAP overnight. Bryn's son and daughter in law present at bedside. Patient states she does feel slightly better than when she got to the hospital. Patient denies pain, anxiety, nausea, vomiting, and dyspnea. - Constitutional Vitals: Abnormal lab results WBC 12.8 K/mcL (4.3-11.1) H 10/29/18 06:54 RBC 3.64 M/mcL (3.82-4.97) L 11/03/18 07:58 MCV 100.5 fL (83.0-100.0) H 11/03/18 07:58 MCHC 31.4 g/dL (31.6-35.5) L 11/03/18 07:58 MPV 9.3 fL (9.4-12.4) L 10/28/18 05:00 10.2 K/mcL (1.6-8.9) H 10/29/18 06:54 PT 50.2 Seconds (9.4-12.1) H* 11/04/18 03:06 INR 4.4 H* 11/04/18 03:06 ABG pH 7.28 pH Units (7.32-7.45) L 11/02/18 18:44 ABG pCO2 91 mmHg (35-45) H* 11/04/18 04:41 ABG pO2 135 mmHg (85-104) H 11/04/18 04:41 ABG HCO3 47 mEq/L (21-27) H 11/04/18 04:41 ABG Total CO2 50 mEq/L (20-26) H 11/04/18 04:41 ABG O2 Saturation 99 % (95-98) H 11/04/18 04:41 ABG Base Excess 17 mEq/L (-2 to 3) H 11/04/18 04:41 VBG pCO2 73 mmHg (41-51) H* 10/31/18 16:57 VBG pO2 196 mmHg (25-50) H 10/31/18 16:57 VBG HCO3 44 mEq/L (21-27) H 10/31/18 16:57 Sodium 135 mEq/L (136-145) L 11/04/18 03:06 Chloride 89 mEq/L (98-107) L 11/04/18 03:06 Carbon Dioxide 45 mEq/L (23-29) H* 11/04/18 03:06 BUN 28 mg/dL (8-23) H 11/03/18 07:58 0.28 mg/dL (0.60-1.20) L 11/04/18 03:06 54 (6-26) H 11/04/18 03:06 Glucose 151 mg/dL (70-105) H 11/04/18 03:06 POC Glucose 130 mg/dL (70-99) H 11/04/18 07:37 6.4 % (-5.6) H 10/28/18 09:21 317 (280-300) H 11/02/18 06:43 Calcium 8.4 mg/dL (8.6-10.3) L 11/04/18 03:06 0.2 mg/dL (0.3-1.0) L 10/28/18 09:21 B-Natriuretic Peptide 439 pg/mL (Less than 100) H 10/28/18 05:00 General appearance: Present: cooperative, morbidly obese, no acute distress - Head Head exam: Present: normal inspection - Eye Eye exam: Present: normal appearance. Absent: periorbital swelling, periorbital tenderness - ENT ENT exam: Present: mucous membranes moist, normal external ear exam - Neck Neck exam: Present: normal inspection - Respiratory Respiratory exam: Present: decreased breath sounds, wheezes - Cardiovascular Cardiovascular exam: Present: +S1, +S2 - GI/Abdominal GI/Abdominal exam: Present: normal bowel sounds (Reports had BM last night.), soft. Absent: tenderness - Rectal Rectal exam: Present: deferred - Expanded Exam Female exam: Present: deferred (Dejesus Catheter. ) - Extremities Exam Extremities exam: Present: pedal edema (1+) - Neurological Exam Neurological exam: Present: alert, oriented X3, strengths equal and symetr throughout. Absent: altered - Psychiatric Psychiatric exam: Present: normal affect, normal mood - Skin Skin exam: Present: dry, pallor, warm Palliative Quality Palliative Quality: Screen for Code Status: Yes, Screen for Goals of Care: Yes, Screen for Pain: Yes, If Pain Regimen Started, Initiate Bowel Regimen: NA, Screen for Nausea/Vomitting: Yes Code Status: 10/28/18 07:13 Resuscitation Status: Active [RES] Routine Comment: Resuscitation Status: Full Code 10/29/18 10:40 CODE [Resuscitation Status: Active] [RES] Routine Comment: Resuscitation Status: DNR-Comfort Care-Arrest 11/02/18 15:55 DNR [Resuscitation Status: Active] [RES] Routine Comment: Resuscitation Status: [id number] - Labs CBC & Chem 7: 11/03/18 07:58 11/04/18 03:06 Labs: Laboratory Results - last 24 hr 11/02/18 11/03/18 11/03/18 20:02 07:20 11:26 PT INR Sample Site ABG pH ABG pCO2 ABG pO2 ABG HCO3 ABG Total CO2 ABG O2 Saturation ABG Base Excess Andrzej Test Respiration Rate O2 Delivery Device Blood Gas Modality Inspired O2 Tidal Volume PEEP Sodium Potassium Chloride Carbon Dioxide BUN Creatinine Est GFR ( Amer) Est GFR (Non-Af Amer) BUN/Creatinine Ratio Glucose POC Glucose 307 H 143 H 211 H Calculated Osmolality Calcium Person Notif of Crit 11/03/18 11/03/18 11/03/18 16:05 18:07 20:27 PT INR Sample Site ABG pH 7.39 ABG pCO2 77 H* ABG pO2 62 L ABG HCO3 46 H ABG Total CO2 49 H ABG O2 Saturation 89 L ABG Base Excess 18 H Andrzej Test Respiration Rate 14 O2 Delivery Device BiPAP Blood Gas Modality Inspired O2 70.0 Tidal Volume 450 PEEP 8 Sodium Potassium Chloride Carbon Dioxide BUN Creatinine Est GFR ( Amer) Est GFR (Non-Af Amer) BUN/Creatinine Ratio Glucose POC Glucose 171 H 200 H Calculated Osmolality Calcium Person Notif of Crit conner 11/04/18 11/04/18 11/04/18 03:06 03:06 04:41 PT 50.2 H* INR 4.4 H* Sample Site R Radial ABG pH 7.32 ABG pCO2 91 H* ABG pO2 135 H ABG HCO3 47 H ABG Total CO2 50 H ABG O2 Saturation 99 H ABG Base Excess 17 H Andrzej Test Positive Respiration Rate 14 O2 Delivery Device BiPAP Blood Gas Modality AVAPS Inspired O2 70.0 Tidal Volume 450 PEEP 8 Sodium 135 L Potassium 3.8 Chloride 89 L Carbon Dioxide 45 H* BUN 15 Creatinine 0.28 L Est GFR ( Amer) > 60 Est GFR (Non-Af Amer) > 60 BUN/Creatinine Ratio 54 H Glucose 151 H POC Glucose Calculated Osmolality 284 Calcium 8.4 L Person Notif of Crit RICHCREEK 11/04/18 07:37 PT INR Sample Site ABG pH ABG pCO2 ABG pO2 ABG HCO3 ABG Total CO2 ABG O2 Saturation ABG Base Excess Andrzej Test Respiration Rate O2 Delivery Device Blood Gas Modality Inspired O2 Tidal Volume PEEP Sodium Potassium Chloride Carbon Dioxide BUN Creatinine Est GFR ( Amer) Est GFR (Non-Af Amer) BUN/Creatinine Ratio Glucose POC Glucose 130 H Calculated Osmolality Calcium Person Notif of Crit - ABG Interpretation ABG results: ABG ABG pH 7.32 pH Units (7.32-7.45) 11/04/18 04:41 ABG pCO2 91 mmHg (35-45) H* 11/04/18 04:41 ABG pO2 135 mmHg (85-104) H 11/04/18 04:41 ABG O2 Saturation 99 % (95-98) H 11/04/18 04:41 PT/INR, D-dimer PT 50.2 Seconds (9.4-12.1) H* 11/04/18 03:06 Palliative Scale - Palliative Performance Scale How ambulatory is this patient?: Mainly sit / lie What is patient's level of activity and evidence of disease?: Unable normal job/work, Significant disease How much self-care assistance does patient require?: Mainly assistance How much oral intake does the patient have?: Normal or reduced What is this patient's level of consciousness?: Full or confusion Palliative Performance Score: 60 % Consult Discharge Plan - Plan Referrals: NONE,PCP [Primary Care Provider] -
--- NOTE | 2018-11-04 12:06 | Internal Med Progress Note ---
Hospitalist Progress Note - Encounter Date of Encounter: 11/04/18 Time of Encounter: 12:04 - Subjective Interval History: Patient lying down in bed. Currently on O2 supplementation with Angelo. No significant improvement in overall condition. She has not had any fevers overnight. Tolerating diet. She did have good urine output yesterday was -1 L fluid balance. - Exam Vitals: Temp Pulse Resp BP Pulse Ox 98.8 F 62 18 124/53 93 11/04/18 11:00 11/04/18 11:00 11/04/18 11:00 11/04/18 11:00 11/04/18 11:00 Exam: General: Patient is alert, severe distress, oriented x 3 ENT: Mucous membranes moist Respiratory: Decreased breath sounds at both bases. Coarse breath sounds bilaterally. Cardiovascular: Regular rate and rhythm. s1 and s2 normal No clicks, rubs, gallops, or murmurs. Bilateral pedal edema present Abdomen: Abdomen is soft, nontender. Bowel sounds are present Musculoskeletal: Spontaneously moving all extremities Skin: warm, dry, intact. Neuro: Alert oriented x 3 normal cranial nerves, no focal deficits - Assessment and Plan (1) Acute respiratory failure with hypoxia Current Visit: Yes Status: Acute Assessment and Plan: Multifactorial. Continues to require high O2 supplementation. Palliative care following. Plan for thoracentesis after INR less than 2. (2) Congestive heart failure Current Visit: Yes Status: Acute Assessment and Plan: Continue IV Lasix. Renal function remained stable. Will transition to oral Lasix tomorrow. (3) COPD exacerbation Current Visit: Yes Status: Acute Assessment and Plan: Currently on Solu-Medrol, bronchodilators and doxycycline/ceftriaxone. Continue to wean FiO2 as tolerated. Will transition to oral steroids (4) Diabetes Current Visit: Yes Status: Chronic Assessment and Plan: Blood sugars remain elevated. Will add long-acting insulin. (5) Hypertension Current Visit: Yes Status: Chronic Assessment and Plan: Well-controlled (6) Dyslipidemia Current Visit: Yes Status: Acute Assessment and Plan: Continue atorvastatin (7) New onset atrial fibrillation Current Visit: Yes Status: Resolved Assessment and Plan: patient is currently on sotalol. INR continues to climb. Will give a small dose of vitamin K in anticipation for possible thoracentesis. Hold Coumadin - Time Spent with Patient Total time spent is greater than 50% in coordination of care (as documented) at patient's floor/unit and/or counseling patient: Internal Medicine: Result - Labs CBC & Chem 7: 11/03/18 07:58 11/04/18 03:06 Labs: BMP 11/04/18 03:06 Sodium 135 L Potassium 3.8 Chloride 89 L Carbon Dioxide 45 H* BUN 15 Creatinine 0.28 L Glucose 151 H Calcium 8.4 L - ABG Interpretation ABG results: ABG ABG pH 7.32 pH Units (7.32-7.45) 11/04/18 04:41 ABG pCO2 91 mmHg (35-45) H* 11/04/18 04:41 ABG pO2 135 mmHg (85-104) H 11/04/18 04:41 ABG O2 Saturation 99 % (95-98) H 11/04/18 04:41 PT/INR, D-dimer PT 50.2 Seconds (9.4-12.1) H* 11/04/18 03:06 Consult Discharge Plan - Plan Referrals: NONE,PCP [Primary Care Provider] - (2) Congestive heart failure Qualifiers: Heart failure type: diastolic Heart failure chronicity: acute Qualified Code(s): I50.31 - Acute diastolic (congestive) heart failure (4) Diabetes Qualifiers: Diabetes mellitus type: type 2 (5) Hypertension Qualifiers: Hypertension type: essential hypertension Qualified Code(s): I10 - Essential (primary) hypertension
[2018-11-04] MEDS ORDERED: *HR* Phytonadione 10 MG/ML AMPUL SQ ONE (12:11)
--- NOTE | 2018-11-04 12:25 | Cardiology Progress Note ---
Date of Encounter: 11/04/18 Time of Encounter: 12:00 Assessment and Plan (1) New onset atrial fibrillation Current Visit: Yes Status: Resolved Per Cardiology: -New-onset PAF with 7.4 second pause with conversion to SR a few days ago. Did not desire pacer if clinically warranted. TSH and labs ok. -On sotalol 80 mg PO 12 hours to maintain sinus rhythm. -S/p a total of 7 doses-- apparently had a held dose at one point. SR on telemetry currently. -On Cardizem CD 180mg PO daily -Did have episode of a.fib yesterday evening and was given IV lopressor. -ECG today with SB, HR 57. QT 525/QTc 520ms. -Discussed and reviewed with , Recommend continue PO Sotalol. Unable to further titrate medications at this point due to HR and QTc. Will repeat ECG this afternoon. -Regarding long-term anticoagulation, has past intolerance to heparin-- HIT. Had been on Coumadin in the past-- hx of DVT; ?PE. Now on Coumadin with target INR 2.0-3.0; current INR 2.3. H&H stable. Avoid DOACs since on Dilantin. -Will continue to monitor. (2) Congestive heart failure Current Visit: Yes Status: Acute Per Cardiology: -Initial CXR showed CHF, BNP 439. On IV Lasix 40mg BID. Net I&O -4600ml. -TTE LVEF 65%. Normal LV chamber size and function. Mild cLVH. Moderate LVDD. Atypical septal motion consistent with post-operative status. RV was not well visualized. Grossly, it is normal in function. Severe phtn. No significant valvular dysfunction. -On daily weights, strict I&O, 1.5 L fluid restriction. -On high flow NC. -Appears evolemic on exam. -Pending thoracentesis tuesday. -Will repeat BNP. Qualifiers: Heart failure type: diastolic Heart failure chronicity: acute Qualified Code(s): I50.31 - Acute diastolic (congestive) heart failure (3) CAD (coronary artery disease) Current Visit: Yes Status: Chronic Per Cardiology: -Troponin negative 1. History of CAD with CABG 4 in 2009. On asa, statin. Qualifiers: Coronary Disease-Associated Artery/Lesion type: [place] artery [place] vs. transplanted heart: [place] heart Associated angina: without angina Qualified Code(s): I25.10 - Atherosclerotic heart disease of [place] coronary artery without angina pectoris Discussion w patient/family: The assessment and plan as outlined above was discussed with the patient who expressed understanding and agreement. All questions were answered. Thank you for involving us in the care of your patient. Please call with any questions. Discussed and reviewed with Subjective Principal diagnosis: PAF Interval history: Patient reports breathing improved. Denies complaints. Objective Vital Signs, Last 4 Hours Temp Pulse Resp BP Pulse Ox 11/04/18 11:00 98.8 F 62 18 124/53 93 11/04/18 10:22 18 92 11/04/18 08:47 94 General: Conversant, Other (conversational dyspnea noted) HEENT: Atraumatic, Normocephaly, Mucus Membranes Moist Neck: No JVD, Normal carotid pulses Cardiac: Reg Rate and Rhythm, Normal S1 and S2, No Murmur Lungs: Other (Lung sounds dimished throughout. Minimal air movement noted. ) Neuro: Alert and responsive, No focal deficits noted Abdomen: Soft, Non-Tender Skin: No rashes noted on visualized skin Musculoskeletal: No Chest Wall Tenderness Extremities: No Clubbing, No Cyanosis, No Edema, Normal Pulses Results 11/03/18 07:58 11/04/18 03:06 Lab Results Active Medications Artificial Tears (Akwa Tears) 1 drop BOTH EYES BID [facility] Stop: 04/29/19 09:01 Last Admin: 11/04/18 08:43 Dose: 1 drop Documented by: Aspirin (Aspirin Ec) 81 mg PO DAILY [facility] Stop: 04/29/19 09:01 Last Admin: 11/04/18 08:54 Dose: 81 mg Documented by: Atorvastatin Calcium (Lipitor) 40 mg PO DAILY [facility] Stop: 04/29/19 09:01 Last Admin: 11/04/18 08:54 Dose: 40 mg Documented by: Baclofen (Lioresal) 10 mg PO QID [facility] Stop: 04/29/19 09:01 Last Admin: 11/04/18 08:54 Dose: 10 mg Documented by: Budesonide/Formoterol Fumarate (Symbicort) 2 puff IH BIDR [facility]; Protocol Stop: 04/29/19 10:01 Last Admin: 11/04/18 10:22 Dose: 2 puff Documented by: Dextrose/Water (Dextrose 50% (Syg)) 25 ml IVP AD PRN PRN Reason: Hypoglycemia Stop: 04/29/19 07:45 Diltiazem HCl (Cardizem Cd) 180 mg PO DAILY [facility] Stop: 05/02/19 10:16 Last Admin: 11/04/18 08:54 Dose: 180 mg Documented by: Fenofibrate (Tricor) 162 mg PO DAILY [facility] Stop: 04/29/19 09:01 Last Admin: 11/04/18 08:55 Dose: 162 mg Documented by: Folic Acid (Folic Acid) 1 mg PO DAILY [facility] Stop: 04/29/19 09:01 Last Admin: 11/04/18 08:55 Dose: 1 mg Documented by: Furosemide (Lasix) 40 mg IVP BIDDIURETIC [facility] Stop: 04/29/19 17:01 Last Admin: 11/04/18 08:44 Dose: 40 mg Documented by: Glucagon (Glucagen) 1 mg IM ONCE PRN PRN Reason: Hypoglycemia Stop: 04/29/19 07:45 Glucose (Gluctose) 15 gm PO ONCE PRN PRN Reason: Hypoglycemia Stop: 04/29/19 07:45 Glucose (Gluctose) 30 gm PO ONCE PRN PRN Reason: Hypoglycemia Stop: 04/29/19 07:45 Hydralazine HCl (Hydralazine) 10 mg IVP Q6HR PRN PRN Reason: Hypertension Stop: 05/04/19 12:01 Dextrose (Dextrose 5%) 1,000 mls @ 100 mls/hr IVC .Q10H PRN PRN Reason: HYPOGLYCEMIA Stop: 04/29/19 07:45 Doxycycline Hyclate 100 mg/ (Sodium Chloride) 100 mls @ 100 mls/hr IVPB Q12HR [facility] Stop: 05/03/19 18:01 Last Admin: 11/04/18 05:30 Dose: 100 mls/hr Documented by: Ceftriaxone Sodium 1,000 mg/ (Sterile Water) 10 mls @ 600 mls/hr IVP DAILY [facility] Stop: 05/03/19 15:01 Last Admin: 11/04/18 08:43 Dose: 600 mls/hr Documented by: Insulin Detemir (Levemir) 10 unit SQ DAILY [facility] Stop: 05/06/19 12:16 Insulin Human Lispro (Humalog) 0 units SQ TIDAC [facility]; Protocol Stop: 04/29/19 11:31 Last Admin: 11/04/18 11:56 Dose: 8 units Documented by: Levalbuterol HCl (Xopenex) 0.63 mg IH [id number] [facility] Stop: 05/03/19 16:01 Last Admin: 11/04/18 10:22 Dose: 0.63 mg Documented by: Lorazepam (Ativan) 0.5 mg IVP Q6HR PRN PRN Reason: restlessness/anxiety Stop: 05/04/19 16:02 Naloxone HCl (Narcan) 0.4 mg IVP Q2MPRN PRN PRN Reason: SEE COMMENTS Stop: 04/29/19 07:14 Nystatin (Nystop) 1 appl TP TID [facility] Stop: 04/29/19 22:31 Last Admin: 11/04/18 08:44 Dose: 1 appl Documented by: Omeprazole (Prilosec) 20 mg PO HS [facility] Stop: 04/29/19 21:01 Last Admin: 11/03/18 22:38 Dose: 20 mg Documented by: Ondansetron HCl (Zofran) 4 mg IVP Q6HR PRN; Protocol PRN Reason: Nausea And Vomiting Stop: 04/29/19 13:50 Oxybutynin Chloride (Ditropan) 5 mg PO BID [facility] Stop: 04/29/19 09:01 Last Admin: 11/04/18 08:54 Dose: 5 mg Documented by: Pharmacy Profile Note (Patient Taking Own Medication) 1 each PO DAILY [facility] Stop: 04/29/19 09:01 Last Admin: 11/04/18 08:44 Dose: Not Given Documented by: Phenytoin (Dilantin Er) 400 mg PO HS [facility] Stop: 04/29/19 21:01 Last Admin: 11/03/18 22:39 Dose: 400 mg Documented by: Prednisone (Prednisone) 40 mg PO DAILY [facility] Stop: 05/07/19 09:01 Senna (Senna) 8.6 mg PO DAILY PRN PRN Reason: Constipation Stop: 04/29/19 07:15 Sotalol HCl (Betapace) 80 mg PO Q12H [facility] Stop: 05/01/19 12:31 Last Admin: 11/04/18 01:40 Dose: 80 mg Documented by: Vitamin D (Vitamin D) 1,000 unit PO DAILY [facility] Stop: 04/29/19 15:01 Last Admin: 11/04/18 08:54 Dose: 1,000 unit Documented by: Laboratory Tests 11/03/18 11/04/18 11/04/18 07:58 03:06 04:41 Hgb 11.5 D ABG pCO2 91 H* Creatinine 0.28 L - Imaging and Cardiology Chest Xray: report reviewed Echo: report reviewed - EKG Interpretation EKG results cardiology: other (Telemetry reviewed with average HR previous 12 hours noted to be 63, SR. PACs noted.) Consult Discharge Plan - Plan Referrals: NONE,PCP [Primary Care Provider] -
[2018-11-04] MEDS: Insulin DETEMIR 100 UNIT/ML X5UNITS SQ SCH (13:19)
[2018-11-05 03:35] LABS: Basophils % 0.3 %; Eosinophils # 0.1 K/mcL (0.0-0.6); Eosinophils % 0.8 %; Hematocrit 30.4 % (35.3-44.9); Immature Granulocytes % 0.3 % (0-4); Lymphocytes # 1.5 K/mcL (0.6-4.6); Lymphocytes % 21.1 %; Mean Corpuscular HGB Conc 31.6 g/dL (31.6-35.5); Mean Corpuscular Volume 98.1 fL (83.0-100.0); Mean Platelet Volume 9.1 fL (9.4-12.4); Monocytes # 0.8 K/mcL (0.0-1.3); Monocytes % 10.8 %; Neutrophils # 4.9 K/mcL (1.6-8.9); Platelet Count 231 K/mcL (140-400); Segmented Neutrophils % 66.7 %
[2018-11-05 03:37] LABS: Hemoglobin 9.6 g/dL (11.5-15.4)
[2018-11-05 03:59] LABS: BUN/Creatinine Ratio 38 (6-26); Blood Urea Nitrogen 14 mg/dL (8-23); Calcium 8.9 mg/dL (8.6-10.3); Carbon Dioxide > 45 mEq/L (23-29); Chloride 88 mEq/L (98-107); Glucose 104 mg/dL (70-105); Osmolality,Calculated 287 (280-300); Potassium 3.6 mEq/L (3.5-5.1); Sodium 138 mEq/L (136-145); eGFR For Non-African Americans > 60 (> 60)
[2018-11-05] MEDS: Levalbuterol Neb 0.63 MG/3 ML IH SCH ×4 (04:10→22:08)
[2018-11-05] MEDS: Doxycycline 100 MG in 0.9 % Sodium Chloride Mini Bag 100 ML IVPB SCH (05:22)
[2018-11-05] MEDS: Insulin LISPRO 300 UNITS/3 ML VIAL SQ SCH ×3 (07:38→16:32)
[2018-11-05] MEDS: cefTRIAXone 1,000 MG in Water for inj. (sterile) 20 ML 10 ML IVP SCH (07:52)
[2018-11-05] MEDS: Furosemide 40 MG/4 ML VIAL IVP SCH (07:52)
[2018-11-05] MEDS: Baclofen 10 MG TABLET PO SCH ×4 (07:53→21:21)
[2018-11-05] MEDS: Cholecalciferol (D-3) 1,000 UNIT TABLET PO SCH (07:53)
[2018-11-05] MEDS: Aspirin Enteric Coated 81 MG Tablet PO SCH (07:53)
[2018-11-05] MEDS: Artificial Tears SOLN 15 ML BOTTLE BOTH EYES SCH ×2 (07:53→21:22)
[2018-11-05] MEDS: Diltiazem CD (24hr) 180 MG CAPSULE PO SCH (07:53)
[2018-11-05] MEDS: Fenofibrate 54 MG TABLET PO SCH (07:53)
[2018-11-05] MEDS: Folic Acid 1 MG TABLET PO SCH (07:53)
[2018-11-05] MEDS: predniSONE 20 MG TABLET PO SCH (07:53)
[2018-11-05] MEDS: (Mirabegron [Myrbetriq] 50 MG) PO SCH (07:54)
[2018-11-05] MEDS: Nystatin POWDER 30 GM BOTTLE TP SCH ×3 (07:54→21:22)
[2018-11-05] MEDS: Insulin DETEMIR 100 UNIT/ML X5UNITS SQ SCH (07:55)
[2018-11-05 08:42] LABS: INR 2.1; Prothrombin Time 23.9 Seconds (9.4-12.1)
[2018-11-05] MEDS: Budesonide/Formoterol 160/4.5 1 PUFF INH IH SCH ×2 (09:33→22:07)
--- NOTE | 2018-11-05 10:05 | Palliative Progress Note ---
Date of Encounter: 11/05/18 Time of Encounter: 09:45 - Assessment and plan (1) Acute respiratory failure with hypoxia Current Visit: Yes Status: Acute Assessment and plan: Continue supportive oxygen/bipap/steroids/diuretics at this time. (2) COPD exacerbation Current Visit: Yes Status: Acute (3) Dyspnea Current Visit: Yes Status: Acute Assessment and plan: Patient denies dyspnea. Wearing Angelo at this time. Patient reports she believes the thoracentesis, if able to, tomorrow will help her breathing. Qualifiers: Dyspnea type: unspecified Qualified Code(s): R06.00 - Dyspnea, unspecified (4) Anxiety Current Visit: Yes Status: Acute Assessment and plan: Patient denies anxiety at this time. Patient has Ativan PRN. 0 doses have been administered this admission. (5) Palliative care encounter Current Visit: Yes Status: Acute (6) Goals of care, counseling/discussion Current Visit: Yes Status: Acute Assessment and plan: Met with patient regarding goals of care. Updated patient on INR improving to 2.1. Patient reports she is hopeful of todd ving "procedure done tomorrow" to help her breathing. Per RN report, no family has been in today. Patient reports her son had to return to work today in [place]. (7) Acute on chronic diastolic (congestive) heart failure Current Visit: Yes Status: Acute Assessment and plan: Continued Pedal edema +1. Patient had good urine output over the last 24 hours. - Time Spent With Patient Total time spent is greater than 50% in coordination of care (as documented) at patient's floor/unit and/or counseling patient: - Subjective Interval history: Patient siting up in bed, awake, alert and oriented upon arrival for assessment. Patient much more alert than yesterday and able to participate actively in conversation. Patient denies pain, anxiety, dyspnea, nausea, and vomiting. Patient is currently wearing Angelo and reports she wore the BiPAP overnight. - Constitutional Vitals: Abnormal lab results WBC 12.8 K/mcL (4.3-11.1) H 10/29/18 06:54 RBC 3.10 M/mcL (3.82-4.97) L 11/05/18 03:20 Hgb 9.6 g/dL (11.5-15.4) L D 11/05/18 03:20 Hct 30.4 % (35.3-44.9) L 11/05/18 03:20 MCV 100.5 fL (83.0-100.0) H 11/03/18 07:58 MCHC 31.4 g/dL (31.6-35.5) L 11/03/18 07:58 MPV 9.1 fL (9.4-12.4) L 11/05/18 03:20 10.2 K/mcL (1.6-8.9) H 10/29/18 06:54 PT 23.9 Seconds (9.4-12.1) H D 11/05/18 03:30 INR 4.4 H* 11/04/18 03:06 ABG pH 7.28 pH Units (7.32-7.45) L 11/02/18 18:44 ABG pCO2 91 mmHg (35-45) H* 11/04/18 04:41 ABG pO2 135 mmHg (85-104) H 11/04/18 04:41 ABG HCO3 47 mEq/L (21-27) H 11/04/18 04:41 ABG Total CO2 50 mEq/L (20-26) H 11/04/18 04:41 ABG O2 Saturation 99 % (95-98) H 11/04/18 04:41 ABG Base Excess 17 mEq/L (-2 to 3) H 11/04/18 04:41 VBG pCO2 73 mmHg (41-51) H* 10/31/18 16:57 VBG pO2 196 mmHg (25-50) H 10/31/18 16:57 VBG HCO3 44 mEq/L (21-27) H 10/31/18 16:57 Sodium 135 mEq/L (136-145) L 11/04/18 03:06 Chloride 88 mEq/L (98-107) L 11/05/18 03:20 Carbon Dioxide > 45 mEq/L (23-29) H* 11/05/18 03:20 BUN 28 mg/dL (8-23) H 11/03/18 07:58 0.37 mg/dL (0.60-1.20) L 11/05/18 03:20 38 (6-26) H 11/05/18 03:20 Glucose 151 mg/dL (70-105) H 11/04/18 03:06 POC Glucose 185 mg/dL (70-99) H 11/04/18 20:04 6.4 % (-5.6) H 10/28/18 09:21 317 (280-300) H 11/02/18 06:43 Calcium 8.4 mg/dL (8.6-10.3) L 11/04/18 03:06 0.2 mg/dL (0.3-1.0) L 10/28/18 09:21 B-Natriuretic Peptide 216 pg/mL (Less than 100) H 11/04/18 12:18 General appearance: Present: cooperative, no acute distress - Head Head exam: Present: atraumatic, normal inspection - Eye Eye exam: Present: EOMI, normal appearance, PERRL, conjuntiva pink. Absent: periorbital swelling, periorbital tenderness - ENT ENT exam: Present: mucous membranes dry, normal external ear exam - Neck Neck exam: Present: full ROM, normal inspection - Respiratory Respiratory exam: Present: CTAB. Absent: respiratory distress - Cardiovascular Cardiovascular exam: Present: +S1, +S2 - GI/Abdominal GI/Abdominal exam: Present: normal bowel sounds, soft. Absent: tenderness - Rectal Rectal exam: Present: deferred - Extremities Exam Extremities exam: Present: normal inspection, pedal edema. Absent: calf tenderness - Back Exam Back exam: Present: normal inspection - Neurological Exam Neurological exam: Present: alert, oriented X3, strengths equal and symetr throughout. Absent: altered - Psychiatric Psychiatric exam: Present: normal affect, normal mood - Skin Skin exam: Present: dry, intact, pallor, warm. Absent: normal color Palliative Quality Palliative Quality: Screen for Code Status: Yes, Screen for Goals of Care: Yes, Screen for Pain: Yes, If Pain Regimen Started, Initiate Bowel Regimen: NA, Screen for Nausea/Vomitting: Yes Code Status: 10/28/18 07:13 Resuscitation Status: Active [RES] Routine Comment: Resuscitation Status: Full Code 10/29/18 10:40 CODE [Resuscitation Status: Active] [RES] Routine Comment: Resuscitation Status: DNR-Comfort Care-Arrest 11/02/18 15:55 DNR [Resuscitation Status: Active] [RES] Routine Comment: Resuscitation Status: [id number] - Labs CBC & Chem 7: 11/05/18 03:20 05/19/19 03:20 Labs: Laboratory Results - last 24 hr 11/04/18 11/04/18 11/04/18 11:16 12:18 15:57 WBC RBC Hgb Hct MCV MCH MCHC RDW Plt Count MPV Immature Gran % Seg Neutrophils % Lymphocytes % Monocytes % Eosinophils % Basophils % Neutrophils # Lymphocytes # Monocytes # Eosinophils # Basophils # PT INR Sodium Potassium Chloride Carbon Dioxide BUN Creatinine Est GFR ( Amer) Est GFR (Non-Af Amer) BUN/Creatinine Ratio Glucose POC Glucose 269 H 214 H Calculated Osmolality Calcium B-Natriuretic Peptide 216 H 11/04/18 11/05/18 11/05/18 20:04 03:20 03:20 WBC 7.3 RBC 3.10 L Hgb 9.6 L D Hct 30.4 L MCV 98.1 MCH 31.0 MCHC 31.6 RDW 12.0 Plt Count 231 MPV 9.1 L Immature Gran % 0.3 Seg Neutrophils % 66.7 Lymphocytes % 21.1 Monocytes % 10.8 Eosinophils % 0.8 Basophils % 0.3 Neutrophils # 4.9 Lymphocytes # 1.5 Monocytes # 0.8 Eosinophils # 0.1 Basophils # 0.0 PT INR Sodium 138 Potassium 3.6 Chloride 88 L Carbon Dioxide > 45 H* BUN 14 Creatinine 0.37 L Est GFR ( Amer) > 60 Est GFR (Non-Af Amer) > 60 BUN/Creatinine Ratio 38 H Glucose 104 POC Glucose 185 H Calculated Osmolality 287 Calcium 8.9 B-Natriuretic Peptide 11/05/18 03:30 WBC RBC Hgb Hct MCV MCH MCHC RDW Plt Count MPV Immature Gran % Seg Neutrophils % Lymphocytes % Monocytes % Eosinophils % Basophils % Neutrophils # Lymphocytes # Monocytes # Eosinophils # Basophils # PT 23.9 H D INR 2.1 D Sodium Potassium Chloride Carbon Dioxide BUN Creatinine Est GFR ( Amer) Est GFR (Non-Af Amer) BUN/Creatinine Ratio Glucose POC Glucose Calculated Osmolality Calcium B-Natriuretic Peptide - ABG Interpretation ABG results: ABG ABG pH 7.32 pH Units (7.32-7.45) 11/04/18 04:41 ABG pCO2 91 mmHg (35-45) H* 11/04/18 04:41 ABG pO2 135 mmHg (85-104) H 11/04/18 04:41 ABG O2 Saturation 99 % (95-98) H 11/04/18 04:41 PT/INR, D-dimer PT 23.9 Seconds (9.4-12.1) H D 11/05/18 03:30 Palliative Scale - Palliative Performance Scale How ambulatory is this patient?: Mainly sit / lie What is patient's level of activity and evidence of disease?: Unable normal job/work, Significant disease How much self-care assistance does patient require?: Mainly assistance How much oral intake does the patient have?: Normal or reduced What is this patient's level of consciousness?: Full or confusion Palliative Performance Score: 60 % Consult Discharge Plan - Plan Referrals: NONE,PCP [Primary Care Provider] -
--- NOTE | 2018-11-05 10:58 | Cardiology Progress Note ---
Date of Encounter: 11/05/18 Time of Encounter: 10:55 Assessment and Plan (1) New onset atrial fibrillation Current Visit: Yes Status: Resolved Per Cardiology: -New-onset PAF with 7.4 second pause with conversion to SR a few days ago. Did not desire pacer if clinically warranted. TSH and labs ok. -On sotalol 80 mg PO 12 hours to maintain sinus rhythm. -SR on telemetry. -On Cardizem CD 180mg PO daily -ECG today with SB, HR 57. QT 481/QTc 475ms. -Continue sotalol and cardizem. -Regarding long-term anticoagulation, has past intolerance to heparin-- HIT. Had been on Coumadin in the past-- hx of DVT; ?PE. Now on Coumadin with target INR 2.0-3.0. Avoid DOACs since on Dilantin. Currently coumadin on hold due to need for thoracentesis. Recommend resuming coumadin after thoracentesis. -Cardiology will sign off, re-consult if needed. Will arrange close outpatient follow up. (2) Congestive heart failure Current Visit: Yes Status: Acute Per Cardiology: -Initial CXR showed CHF, BNP 439. On IV Lasix 40mg BID. Net I&O -4000ml. -TTE LVEF 65%. Normal LV chamber size and function. Mild cLVH. Moderate LVDD. Atypical septal motion consistent with post-operative status. RV was not well visualized. Grossly, it is normal in function. Severe phtn. No significant valvular dysfunction. -On daily weights, strict I&O, 1.5 L fluid restriction. -On high flow NC. -Appears evolemic on exam. -Pending thoracentesis tuesday. -Repeat BNP 216. -Will switch lasix to PO. -Strict i/os, fluid restriction, daily weights -CHF education reviewed with patient. Qualifiers: Heart failure type: diastolic Heart failure chronicity: acute Qualified Code(s): I50.31 - Acute diastolic (congestive) heart failure (3) CAD (coronary artery disease) Current Visit: Yes Status: Chronic Per Cardiology: -Troponin negative 1. History of CAD with CABG 4 in 2009. On asa, statin. Qualifiers: Coronary Disease-Associated Artery/Lesion type: [place] artery [place] vs. transplanted heart: [place] heart Associated angina: without angina Qualified Code(s): I25.10 - Atherosclerotic heart disease of [place] coronary artery without angina pectoris Discussion w patient/family: The assessment and plan as outlined above was discussed with the patient who expressed understanding and agreement. All questions were answered. Thank you for involving us in the care of your patient. Please call with any questions. Discussed and reviewed with Subjective Principal diagnosis: PAF Interval history: Patient reports breathing improved. Denies complaints. Objective Vital Signs, Last 4 Hours Resp Pulse Ox 11/05/18 09:33 20 96 General: Conversant, Other (Conversational dyspnea noted. ) HEENT: Atraumatic, Normocephaly, Mucus Membranes Moist Neck: No JVD, Normal carotid pulses Cardiac: Reg Rate and Rhythm, Normal S1 and S2, No Murmur Lungs: Other (Minimal air movement noted. ) Neuro: Alert and responsive, No focal deficits noted Abdomen: Soft, Non-Tender Skin: No rashes noted on visualized skin Musculoskeletal: No Chest Wall Tenderness Extremities: No Clubbing, No Cyanosis, No Edema, Normal Pulses Results 11/05/18 03:20 11/05/18 03:20 Lab Results Active Medications Artificial Tears (Akwa Tears) 1 drop BOTH EYES BID [facility] Stop: 04/29/19 09:01 Last Admin: 11/05/18 07:53 Dose: Not Given Documented by: Aspirin (Aspirin Ec) 81 mg PO DAILY [facility] Stop: 04/29/19 09:01 Last Admin: 11/05/18 07:53 Dose: 81 mg Documented by: Atorvastatin Calcium (Lipitor) 40 mg PO DAILY [facility] Stop: 04/29/19 09:01 Last Admin: 11/05/18 07:53 Dose: 40 mg Documented by: Baclofen (Lioresal) 10 mg PO QID [facility] Stop: 04/29/19 09:01 Last Admin: 11/05/18 07:53 Dose: 10 mg Documented by: Budesonide/Formoterol Fumarate (Symbicort) 2 puff IH BIDR [facility]; Protocol Stop: 04/29/19 10:01 Last Admin: 11/05/18 09:33 Dose: 2 puff Documented by: Dextrose/Water (Dextrose 50% (Syg)) 25 ml IVP AD PRN PRN Reason: Hypoglycemia Stop: 04/29/19 07:45 Diltiazem HCl (Cardizem Cd) 180 mg PO DAILY [facility] Stop: 05/02/19 10:16 Last Admin: 11/05/18 07:53 Dose: 180 mg Documented by: Fenofibrate (Tricor) 162 mg PO DAILY [facility] Stop: 04/29/19 09:01 Last Admin: 11/05/18 07:53 Dose: 162 mg Documented by: Folic Acid (Folic Acid) 1 mg PO DAILY [facility] Stop: 04/29/19 09:01 Last Admin: 11/05/18 07:53 Dose: 1 mg Documented by: Furosemide (Lasix) 40 mg IVP BIDDIURETIC [facility] Stop: 04/29/19 17:01 Last Admin: 11/05/18 07:52 Dose: 40 mg Documented by: Glucagon (Glucagen) 1 mg IM ONCE PRN PRN Reason: Hypoglycemia Stop: 04/29/19 07:45 Glucose (Gluctose) 15 gm PO ONCE PRN PRN Reason: Hypoglycemia Stop: 04/29/19 07:45 Glucose (Gluctose) 30 gm PO ONCE PRN PRN Reason: Hypoglycemia Stop: 04/29/19 07:45 Hydralazine HCl (Hydralazine) 10 mg IVP Q6HR PRN PRN Reason: Hypertension Stop: 05/04/19 12:01 Dextrose (Dextrose 5%) 1,000 mls @ 100 mls/hr IVC .Q10H PRN PRN Reason: HYPOGLYCEMIA Stop: 04/29/19 07:45 Doxycycline Hyclate 100 mg/ (Sodium Chloride) 100 mls @ 100 mls/hr IVPB Q12HR [facility] Stop: 05/03/19 18:01 Last Admin: 11/05/18 05:22 Dose: 100 mls/hr Documented by: Ceftriaxone Sodium 1,000 mg/ (Sterile Water) 10 mls @ 600 mls/hr IVP DAILY [facility] Stop: 05/03/19 15:01 Last Admin: 11/05/18 07:52 Dose: 600 mls/hr Documented by: Insulin Detemir (Levemir) 10 unit SQ DAILY [facility] Stop: 05/06/19 12:16 Last Admin: 11/05/18 07:55 Dose: 10 unit Documented by: Insulin Human Lispro (Humalog) 0 units SQ TIDAC [facility]; Protocol Stop: 04/29/19 11:31 Last Admin: 11/05/18 07:38 Dose: Not Given Documented by: Levalbuterol HCl (Xopenex) 0.63 mg IH [id number] [facility] Stop: 05/03/19 16:01 Last Admin: 11/05/18 09:33 Dose: 0.63 mg Documented by: Lorazepam (Ativan) 0.5 mg IVP Q6HR PRN PRN Reason: restlessness/anxiety Stop: 05/04/19 16:02 Naloxone HCl (Narcan) 0.4 mg IVP Q2MPRN PRN PRN Reason: SEE COMMENTS Stop: 04/29/19 07:14 Nystatin (Nystop) 1 appl TP TID [facility] Stop: 04/29/19 22:31 Last Admin: 11/05/18 07:54 Dose: 1 appl Documented by: Omeprazole (Prilosec) 20 mg PO HS [facility] Stop: 04/29/19 21:01 Last Admin: 11/04/18 19:48 Dose: 20 mg Documented by: Ondansetron HCl (Zofran) 4 mg IVP Q6HR PRN; Protocol PRN Reason: Nausea And Vomiting Stop: 04/29/19 13:50 Oxybutynin Chloride (Ditropan) 5 mg PO BID [facility] Stop: 04/29/19 09:01 Last Admin: 11/05/18 07:53 Dose: 5 mg Documented by: Pharmacy Profile Note (Patient Taking Own Medication) 1 each PO DAILY [facility] Stop: 04/29/19 09:01 Last Admin: 11/05/18 07:54 Dose: Not Given Documented by: Phenytoin (Dilantin Er) 400 mg PO HS [facility] Stop: 04/29/19 21:01 Last Admin: 11/04/18 19:48 Dose: 400 mg Documented by: Prednisone (Prednisone) 40 mg PO DAILY [facility] Stop: 05/07/19 09:01 Last Admin: 11/05/18 07:53 Dose: 40 mg Documented by: Senna (Senna) 8.6 mg PO DAILY PRN PRN Reason: Constipation Stop: 04/29/19 07:15 Sotalol HCl (Betapace) 80 mg PO Q12H [facility] Stop: 05/01/19 12:31 Last Admin: 11/05/18 00:40 Dose: 80 mg Documented by: Vitamin D (Vitamin D) 1,000 unit PO DAILY [facility] Stop: 04/29/19 15:01 Last Admin: 11/05/18 07:53 Dose: 1,000 unit Documented by: Laboratory Tests 10/28/18 11/04/18 11/05/18 05:00 12:18 03:20 Hgb Creatinine 0.37 L B-Natriuretic Peptide 439 H 216 H 11/05/18 03:20 Hgb 9.6 L D Creatinine B-Natriuretic Peptide - Imaging and Cardiology Chest Xray: report reviewed Echo: report reviewed - EKG Interpretation EKG results cardiology: other (Telemetry reviewed with average HR previous 12 hours noted to be 60, SR. PVCs, PACs noted.) Consult Discharge Plan - Plan Referrals: NONE,PCP [Primary Care Provider] -
--- NOTE | 2018-11-05 14:03 | Internal Med Progress Note ---
Hospitalist Progress Note - Encounter Date of Encounter: 11/05/18 Time of Encounter: 11:00 - Subjective Interval History: Patient lying down in bed. Stable condition. No significant improvement overnight. Denies any fevers or chills. No abdominal pain. Feels hungry and wishes to advance her diet. Tolerating clear liquid diet so far. No chest pain or palpitations. - Exam Vitals: Temp Pulse Resp BP Pulse Ox 98.0 F 60 17 138/58 92 11/05/18 11:00 11/05/18 11:00 11/05/18 11:00 11/05/18 11:11/05/18 11:00 Exam: General: Patient is alert, moderate distress, oriented x 3 ENT: Mucous membranes moist Respiratory: Decreased breath sounds at both bases. Prolonged expiratory phase. Coarse breath sounds bilaterally. Cardiovascular: Regular rate and rhythm. s1 and s2 normal No clicks, rubs, gallops, or murmurs. No pedal edema Abdomen: Abdomen is soft, nontender. Bowel sounds are present Musculoskeletal: Spontaneously moving all extremities Skin: warm, dry, intact. Neuro: Alert oriented x 3 normal cranial nerves, no focal deficits - Assessment and Plan (1) Acute respiratory failure with hypoxia Current Visit: Yes Status: Acute (2) Congestive heart failure Current Visit: Yes Status: Acute (3) COPD exacerbation Current Visit: Yes Status: Acute (4) Diabetes Current Visit: Yes Status: Chronic (5) Hypertension Current Visit: Yes Status: Chronic (6) Dyslipidemia Current Visit: Yes Status: Acute (7) New onset atrial fibrillation Current Visit: Yes Status: Acute - Summary of Assessment and Plan Summary of Assessment and Plan: Patient with acute respiratory failure and hypoxia and hypercapnia. Continues to require high flow O2 supplementation with Angelo. Plan for thoracentesis tomorrow. On ceftriaxone and doxycycline. Will transition to oral antibiotics. Advance diet as tolerated. Will check pro calcitonin. Patient transitioned to oral Lasix today. Cardiology following. A. fib rate controlled with Cardizem and sotalol orally. Coumadin on hold to facilitate thoracentesis scheduled for tomorrow. INR improved to 2.1 today. Continue to monitor vital signs closely. Patient has had -3.3 L fluid balance. Blood pressure is fairly controlled. Continue current medications. - Time Spent with Patient Total time spent is greater than 50% in coordination of care (as documented) at patient's floor/unit and/or counseling patient: Internal Medicine: Result - Labs CBC & Chem 7: 11/05/18 03:20 11/05/18 03:20 Labs: Short CBC 11/05/18 Range/Units 03:20 WBC 7.3 (4.3-11.1) K/mcL Hgb 9.6 L D (11.5-15.4) g/dL Hct 30.4 L (35.3-44.9) % Plt Count 231 (140-400) K/mcL Neutrophils # 4.9 (1.6-8.9) K/mcL BMP 11/05/18 03:20 Sodium 138 Potassium 3.6 Chloride 88 L Carbon Dioxide > 45 H* BUN 14 Creatinine 0.37 L Glucose 104 Calcium 8.9 - ABG Interpretation ABG results: ABG ABG pH 7.32 pH Units (7.32-7.45) 11/04/18 04:41 ABG pCO2 91 mmHg (35-45) H* 11/04/18 04:41 ABG pO2 135 mmHg (85-104) H 11/04/18 04:41 ABG O2 Saturation 99 % (95-98) H 11/04/18 04:41 PT/INR, D-dimer PT 23.9 Seconds (9.4-12.1) H D 11/05/18 03:30 Consult Discharge Plan - Plan Referrals: NONE,PCP [Primary Care Provider] - (2) Congestive heart failure Qualifiers: Heart failure type: diastolic Heart failure chronicity: acute Qualified Code(s): I50.31 - Acute diastolic (congestive) heart failure (4) Diabetes Qualifiers: Diabetes mellitus type: type 2 (5) Hypertension Qualifiers: Hypertension type: essential hypertension Qualified Code(s): I10 - Essential (primary) hypertension
[2018-11-05] MEDS: Furosemide 40 MG TABLET PO SCH (16:32)
[2018-11-05] MEDS: Cefdinir 300 MG CAPSULE PO SCH (21:21)
[2018-11-05] MEDS: Doxycycline 100 MG CAPSULE PO SCH (21:21)
[2018-11-06] MEDS: Levalbuterol Neb 0.63 MG/3 ML IH SCH ×4 (04:19→22:05)
[2018-11-06 06:21] LABS: Basophils % 0.2 %; Eosinophils # 0.1 K/mcL (0.0-0.6); Eosinophils % 1.2 %; Hematocrit 33.4 % (35.3-44.9); Hemoglobin 10.6 g/dL (11.5-15.4); Immature Granulocytes % 0.3 % (0-4); Lymphocytes # 1.6 K/mcL (0.6-4.6); Lymphocytes % 23.9 %; Mean Corpuscular HGB Conc 31.7 g/dL (31.6-35.5); Mean Corpuscular Hemoglobin 31.6 pg (28.0-33.3); Mean Corpuscular Volume 99.7 fL (83.0-100.0); Mean Platelet Volume 9.6 fL (9.4-12.4); Monocytes # 0.7 K/mcL (0.0-1.3); Monocytes % 10.4 %; Neutrophils # 4.2 K/mcL (1.6-8.9); Platelet Count 244 K/mcL (140-400); Red Blood Count 3.35 M/mcL (3.82-4.97); Red Cell Distribution Width 12.2 % (11.5-14.5)
[2018-11-06 06:31] LABS: INR 1.2
[2018-11-06 06:48] LABS: BUN/Creatinine Ratio 48 (6-26); Blood Urea Nitrogen 20 mg/dL (8-23); Calcium 9.1 mg/dL (8.6-10.3); Carbon Dioxide > 45 mEq/L (23-29); Chloride 91 mEq/L (98-107); Glucose 125 mg/dL (70-105); Osmolality,Calculated 300 (280-300); Potassium 3.9 mEq/L (3.5-5.1); Sodium 143 mEq/L (136-145); eGFR For Non-African Americans > 60 (> 60)
[2018-11-06] MEDS: Folic Acid 1 MG TABLET PO SCH (09:43)
[2018-11-06] MEDS: Cholecalciferol (D-3) 1,000 UNIT TABLET PO SCH (09:43)
[2018-11-06] MEDS: Baclofen 10 MG TABLET PO SCH ×4 (09:43→21:38)
[2018-11-06] MEDS: Diltiazem CD (24hr) 180 MG CAPSULE PO SCH (09:43)
[2018-11-06] MEDS: predniSONE 20 MG TABLET PO SCH (09:43)
[2018-11-06] MEDS: Furosemide 40 MG TABLET PO SCH ×2 (09:43→17:11)
[2018-11-06] MEDS: Insulin DETEMIR 100 UNIT/ML X5UNITS SQ SCH (09:44)
[2018-11-06] MEDS: Fenofibrate 54 MG TABLET PO SCH (09:44)
[2018-11-06] MEDS: Doxycycline 100 MG CAPSULE PO SCH ×2 (09:44→21:38)
[2018-11-06] MEDS: Cefdinir 300 MG CAPSULE PO SCH ×2 (09:44→21:38)
[2018-11-06] MEDS: Aspirin Enteric Coated 81 MG Tablet PO SCH (09:44)
[2018-11-06] MEDS: Insulin LISPRO 300 UNITS/3 ML VIAL SQ SCH ×3 (09:44→17:10)
[2018-11-06] MEDS: Artificial Tears SOLN 15 ML BOTTLE BOTH EYES SCH ×2 (09:45→21:38)
[2018-11-06] MEDS: (Mirabegron [Myrbetriq] 50 MG) PO SCH (09:45)
--- NOTE | 2018-11-06 09:59 | Electrocardiograph Report ---
[address] [address] Test Date: 2018-11-04 Pat Name: Amber Means Department: 111 Room: 2NE18 Gender: F Count Team Member: [facility] : 1945 Requested By: Jason Guerrero Order Number: [id number] Reading MD: Reggie Garcia Measurements Intervals [place] Rate: 57 P: 63 HI: 159 QRS: 40 QRSD: 91 T: 53 QT: 525 QTc: 520 Interpretive Statements SINUS BRADYCARDIA PROLONGED QT INTERVAL Electronically Signed On 11-06-2018 9:57:19 EDT by Reggie Garcia
--- NOTE | 2018-11-06 10:07 | IR Procedure Note ---
Date of procedure: 11/06/18 Consent Obtained: Verbal consent Timeout: Correct patient and procedure verified, Correct site verified, Time out performed, Skin prep completed Local anesthetic: Lidocaine 1% Indications: left pleural effusion Procedure Performed: ultrasound guided left thoracentesis Was there an per diem physical therapist assistant present: No Results/Findings: cloudy fluid 850cc drained Estimated blood loss (cc): 0 Complications: None; Tolerated procedure well Specimen: yes
[2018-11-06] MEDS: Nystatin POWDER 30 GM BOTTLE TP SCH ×3 (10:10→21:39)
--- NOTE | 2018-11-06 10:12 | Electrocardiograph Report ---
[place] [address] Test Date: 2018-11-05 Pat Name: Amber Means Department: 111 Room: 2NE18 Gender: F Banquet Chef: [facility] : 1945 Requested By: Jason Guerrero Order Number: [id number] Reading MD: Reggie Garcia Measurements Intervals [place] Rate: 57 P: 66 OR: 160 QRS: 39 QRSD: 90 T: 75 QT: 481 QTc: 475 Interpretive Statements SINUS BRADYCARDIA PROLONGED QT INTERVAL Electronically Signed On 11-06-2018 10:10:48 EDT by Reggie Garcia
--- NOTE | 2018-11-06 10:13 | Palliative Progress Note ---
Date of Encounter: 11/06/18 Time of Encounter: 09:25 - Assessment and plan (1) Dyspnea Current Visit: Yes Status: Acute Assessment and plan: Thoracentesis performed this am. Remains on Angelo - nurse to try and wean down today. Qualifiers: Dyspnea type: unspecified Qualified Code(s): R06.00 - Dyspnea, unspecified (2) Anxiety Current Visit: Yes Status: Acute Assessment and plan: Continue Lorazepam if needed. Has not required. (3) Goals of care, counseling/discussion Current Visit: Yes Status: Acute Assessment and plan: Will check on later today and see if able to tolerate decreased in oxygen and talk with daughter ignacia avila. Patient states son was here this weekend, but is now back out of state. (4) Palliative care encounter Current Visit: Yes Status: Acute (5) Acute respiratory failure with hypoxia Current Visit: Yes Status: Acute (6) COPD exacerbation Current Visit: Yes Status: Acute (7) Congestive heart failure Current Visit: Yes Status: Acute Qualifiers: Heart failure type: diastolic Heart failure chronicity: acute Qualified Code(s): I50.31 - Acute diastolic (congestive) heart failure - Time Spent With Patient Total time spent is greater than 50% in coordination of care (as documented) at patient's floor/unit and/or counseling patient: - Subjective Interval history: Patient did have thoracentesis this am with approx 850ml returned. Upon my visit, she is eating breakfast and remains on Angelo. D/W primary nurse Bill to see if this can be decreased. No family at bedside. Weekend notes reviewed. Vitals stable, eating well. Denies any pain or discomfort. Still c/o shortness of breath but states improved. some. - Constitutional Vitals: Abnormal lab results WBC 12.8 K/mcL (4.3-11.1) H 10/29/18 06:54 RBC 3.35 M/mcL (3.82-4.97) L 11/06/18 06:03 Hgb 10.6 g/dL (11.5-15.4) L 11/06/18 06:03 Hct 33.4 % (35.3-44.9) L 11/06/18 06:03 MCV 100.5 fL (83.0-100.0) H 11/03/18 07:58 MCHC 31.4 g/dL (31.6-35.5) L 11/03/18 07:58 MPV 9.1 fL (9.4-12.4) L 11/05/18 03:20 10.2 K/mcL (1.6-8.9) H 10/29/18 06:54 PT 14.0 Seconds (9.4-12.1) H 11/06/18 06:03 INR 4.4 H* 11/04/18 03:06 ABG pH 7.28 pH Units (7.32-7.45) L 11/02/18 18:44 ABG pCO2 91 mmHg (35-45) H* 11/04/18 04:41 ABG pO2 135 mmHg (85-104) H 11/04/18 04:41 ABG HCO3 47 mEq/L (21-27) H 11/04/18 04:41 ABG Total CO2 50 mEq/L (20-26) H 11/04/18 04:41 ABG O2 Saturation 99 % (95-98) H 11/04/18 04:41 ABG Base Excess 17 mEq/L (-2 to 3) H 11/04/18 04:41 VBG pCO2 73 mmHg (41-51) H* 10/31/18 16:57 VBG pO2 196 mmHg (25-50) H 10/31/18 16:57 VBG HCO3 44 mEq/L (21-27) H 10/31/18 16:57 Sodium 135 mEq/L (136-145) L 11/04/18 03:06 Chloride 91 mEq/L (98-107) L 11/06/18 06:03 Carbon Dioxide > 45 mEq/L (23-29) H* 11/06/18 06:03 BUN 28 mg/dL (8-23) H 11/03/18 07:58 0.42 mg/dL (0.60-1.20) L 11/06/18 06:03 48 (6-26) H 11/06/18 06:03 Glucose 125 mg/dL (70-105) H 11/06/18 06:03 POC Glucose 194 mg/dL (70-99) H 11/05/18 18:51 6.4 % (-5.6) H 10/28/18 09:21 317 (280-300) H 11/02/18 06:43 Calcium 8.4 mg/dL (8.6-10.3) L 11/04/18 03:06 0.2 mg/dL (0.3-1.0) L 10/28/18 09:21 B-Natriuretic Peptide 216 pg/mL (Less than 100) H 11/04/18 12:18 General appearance: Present: no acute distress - Respiratory Respiratory exam: Present: decreased breath sounds, CTAB - Cardiovascular Cardiovascular exam: Present: +S1, +S2 - GI/Abdominal GI/Abdominal exam: Present: normal bowel sounds, soft - Extremities Exam Extremities exam: Present: normal capillary refill, normal inspection - Neurological Exam Neurological exam: Present: alert, oriented X3, strengths equal and symetr throughout - Skin Skin exam: Present: dry, pallor, warm Palliative Quality Palliative Quality: Screen for Code Status: Yes, Screen for Goals of Care: Yes, Screen for Pain: Yes, If Pain Regimen Started, Initiate Bowel Regimen: NA, Screen for Nausea/Vomitting: Yes Code Status: 10/28/18 07:13 Resuscitation Status: Active [RES] Routine Comment: Resuscitation Status: Full Code 10/29/18 10:40 CODE [Resuscitation Status: Active] [RES] Routine Comment: Resuscitation Status: DNR-Comfort Care-Arrest 11/02/18 15:55 DNR [Resuscitation Status: Active] [RES] Routine Comment: Resuscitation Status: [id number] - Labs CBC & Chem 7: 11/06/18 06:03 11/06/18 06:03 Labs: Laboratory Results - last 24 hr 11/05/18 11/05/18 11/05/18 07:32 11:09 16:10 WBC RBC Hgb Hct MCV MCH MCHC RDW Plt Count MPV Immature Gran % Seg Neutrophils % Lymphocytes % Monocytes % Eosinophils % Basophils % Neutrophils # Lymphocytes # Monocytes # Eosinophils # Basophils # PT INR Sodium Potassium Chloride Carbon Dioxide BUN Creatinine Est GFR ( Amer) Est GFR (Non-Af Amer) BUN/Creatinine Ratio Glucose POC Glucose 128 H 197 H 159 H Calculated Osmolality Calcium 11/05/18 11/06/18 11/06/18 18:51 06:03 06:03 WBC 6.6 RBC 3.35 L Hgb 10.6 L Hct 33.4 L MCV 99.7 MCH 31.6 MCHC 31.7 RDW 12.2 Plt Count 244 MPV 9.6 Immature Gran % 0.3 Seg Neutrophils % 64.0 Lymphocytes % 23.9 Monocytes % 10.4 Eosinophils % 1.2 Basophils % 0.2 Neutrophils # 4.2 Lymphocytes # 1.6 Monocytes # 0.7 Eosinophils # 0.1 Basophils # 0.0 PT INR Sodium 143 Potassium 3.9 Chloride 91 L Carbon Dioxide > 45 H* BUN 20 Creatinine 0.42 L Est GFR ( Amer) > 60 Est GFR (Non-Af Amer) > 60 BUN/Creatinine Ratio 48 H Glucose 125 H POC Glucose 194 H Calculated Osmolality 300 Calcium 9.1 11/06/18 06:03 WBC RBC Hgb Hct MCV MCH MCHC RDW Plt Count MPV Immature Gran % Seg Neutrophils % Lymphocytes % Monocytes % Eosinophils % Basophils % Neutrophils # Lymphocytes # Monocytes # Eosinophils # Basophils # PT 14.0 H INR 1.2 Sodium Potassium Chloride Carbon Dioxide BUN Creatinine Est GFR ( Amer) Est GFR (Non-Af Amer) BUN/Creatinine Ratio Glucose POC Glucose Calculated Osmolality Calcium - ABG Interpretation ABG results: ABG ABG pH 7.32 pH Units (7.32-7.45) 11/04/18 04:41 ABG pCO2 91 mmHg (35-45) H* 11/04/18 04:41 ABG pO2 135 mmHg (85-104) H 11/04/18 04:41 ABG O2 Saturation 99 % (95-98) H 11/04/18 04:41 PT/INR, D-dimer PT 14.0 Seconds (9.4-12.1) H 11/06/18 06:03 Palliative Scale - Palliative Performance Scale How ambulatory is this patient?: Mainly sit / lie What is patient's level of activity and evidence of disease?: Unable normal job/work, Significant disease How much self-care assistance does patient require?: Mainly assistance How much oral intake does the patient have?: Normal or reduced What is this patient's level of consciousness?: Full or confusion Palliative Performance Score: 60 % Consult Discharge Plan - Plan Referrals: NONE,PCP [Primary Care Provider] -
[2018-11-06] MEDS: Budesonide/Formoterol 160/4.5 1 PUFF INH IH SCH ×2 (10:25→22:05)
--- NOTE | 2018-11-06 10:45 | Internal Med Progress Note ---
Hospitalist Progress Note - Encounter Date of Encounter: 11/06/18 Time of Encounter: 10:45 - Subjective Interval History: Patient lying down in bed. Comfortable. She underwent thoracentesis this morning. Doing well postprocedure. Tolerated procedure well. She feels that she is able to breathe better now. Denies any chest pain or palpitations. No nausea or vomiting. - Exam Vitals: Temp Pulse Resp BP Pulse Ox 98.8 F 56 18 121/71 90 11/06/18 07:11 11/06/18 07:11 11/06/18 10:28 11/06/18 07:11 11/06/18 10:28 Exam: General: Patient is alert, no acute distress, oriented x 3 ENT: Mucous membranes moist Respiratory: Improved air entry at left base. Coarse breath sounds and prolonged expiratory phase and laterally Cardiovascular: Regular rate and rhythm. s1 and s2 normal No clicks, rubs, gallops, or murmurs. No pedal edema Abdomen: Abdomen is soft, nontender. Bowel sounds are present Musculoskeletal: Spontaneously moving all extremities Skin: warm, dry, intact. Neuro: Alert oriented x 3 normal cranial nerves - Assessment and Plan (1) Acute respiratory failure with hypoxia Current Visit: Yes Status: Acute (2) Congestive heart failure Current Visit: Yes Status: Acute (3) COPD exacerbation Current Visit: Yes Status: Acute (4) Diabetes Current Visit: Yes Status: Chronic (5) Hypertension Current Visit: Yes Status: Chronic (6) Dyslipidemia Current Visit: Yes Status: Acute (7) New onset atrial fibrillation Current Visit: Yes Status: Acute - Summary of Assessment and Plan Summary of Assessment and Plan: Patient with acute respiratory failure and hypoxia and hypercapnia. Multifactorial. Underwent thoracentesis today. 800 mL of fluid has been removed. Will follow results of lab testing. On high flow O2 supplementation with Angelo. Is on Omnicef and doxycycline to complete treatment for pneumoni a. Checking pro calciton. continue Lasix. A. fib remains rate controlled. Continue Cardizem and sotalol. We will resume Coumadin now that thoracentesis has been completed. Patient remains DNR/DNI. Palliative care following. - Time Spent with Patient Total time spent is greater than 50% in coordination of care (as documented) at patient's floor/unit and/or counseling patient: Internal Medicine: Result - Labs CBC & Chem 7: 11/06/18 06:03 11/06/18 06:03 Labs: Short CBC 11/06/18 Range/Units 06:03 WBC 6.6 (4.3-11.1) K/mcL Hgb 10.6 L (11.5-15.4) g/dL Hct 33.4 L (35.3-44.9) % Plt Count 244 (140-400) K/mcL Neutrophils # 4.2 (1.6-8.9) K/mcL BMP 11/06/18 06:03 Sodium 143 Potassium 3.9 Chloride 91 L Carbon Dioxide > 45 H* BUN 20 Creatinine 0.42 L Glucose 125 H Calcium 9.1 - ABG Interpretation ABG results: ABG ABG pH 7.32 pH Units (7.32-7.45) 11/04/18 04:41 ABG pCO2 91 mmHg (35-45) H* 11/04/18 04:41 ABG pO2 135 mmHg (85-104) H 11/04/18 04:41 ABG O2 Saturation 99 % (95-98) H 11/04/18 04:41 PT/INR, D-dimer PT 14.0 Seconds (9.4-12.1) H 11/06/18 06:03 Consult Discharge Plan - Plan Referrals: NONE,PCP [Primary Care Provider] - (2) Congestive heart failure Qualifiers: Heart failure type: diastolic Heart failure chronicity: acute Qualified Code(s): I50.31 - Acute diastolic (congestive) heart failure (4) Diabetes Qualifiers: Diabetes mellitus type: type 2 Diabetes mellitus regional intermodal truck driver insulin use: without regional intermodal truck driver use Diabetes mellitus complication status: without complication Qualified Code(s): E11.9 - Type 2 diabetes mellitus without complications (5) Hypertension Qualifiers: Hypertension type: essential hypertension Qualified Code(s): I10 - Essential (primary) hypertension
[2018-11-06 13:10] LABS: Glucose,Pleural Fluid 135 mg/dL (No Ref Range); LDH,Pleural Fluid 78 Units/L (No Ref Range); Total Protein,Pleural Fluid < 3.0 g/dL
[2018-11-06 15:35] LABS: RBC,Pleural Fluid 0.027 M/mcL
[2018-11-06 15:38] LABS: Appearance of Pleural Fl Bloody (Clear)
[2018-11-06] MEDS ORDERED: Warfarin perPT PO PRN (18:00)
[2018-11-06] MEDS ORDERED: *HR* Warfarin 2.5 MG TABLET PO ONE (18:00)
[2018-11-07] MEDS: Levalbuterol Neb 0.63 MG/3 ML IH SCH ×4 (03:28→21:29)
[2018-11-07 04:51] LABS: Basophils % 0.2 %; Eosinophils # 0.1 K/mcL (0.0-0.6); Eosinophils % 0.8 %; Hematocrit 34.4 % (35.3-44.9); Hemoglobin 10.8 g/dL (11.5-15.4); Immature Granulocytes % 0.4 % (0-4); Lymphocytes # 2.3 K/mcL (0.6-4.6); Mean Corpuscular HGB Conc 31.4 g/dL (31.6-35.5); Mean Corpuscular Hemoglobin 30.9 pg (28.0-33.3); Mean Corpuscular Volume 98.6 fL (83.0-100.0); Mean Platelet Volume 9.8 fL (9.4-12.4); Monocytes # 0.8 K/mcL (0.0-1.3); Monocytes % 9.1 %; Neutrophils # 5.3 K/mcL (1.6-8.9); Platelet Count 274 K/mcL (140-400); Red Blood Count 3.49 M/mcL (3.82-4.97); Segmented Neutrophils % 62.5 %
[2018-11-07 05:08] LABS: INR 1.1; Prothrombin Time 11.9 Seconds (9.4-12.1)
[2018-11-07 05:21] LABS: BUN/Creatinine Ratio 59 (6-26); Blood Urea Nitrogen 26 mg/dL (8-23); Calcium 8.8 mg/dL (8.6-10.3); Carbon Dioxide > 45 mEq/L (23-29); Chloride 91 mEq/L (98-107); Glucose 112 mg/dL (70-105); Osmolality,Calculated 302 (280-300); Potassium 4.2 mEq/L (3.5-5.1); Sodium 143 mEq/L (136-145); eGFR For Non-African Americans > 60 (> 60)
[2018-11-07] MEDS: Fenofibrate 54 MG TABLET PO SCH (07:56)
[2018-11-07] MEDS: Insulin DETEMIR 100 UNIT/ML X5UNITS SQ SCH (07:56)
[2018-11-07] MEDS: Diltiazem CD (24hr) 180 MG CAPSULE PO SCH (07:56)
[2018-11-07] MEDS: Doxycycline 100 MG CAPSULE PO SCH ×2 (07:56→20:49)
[2018-11-07] MEDS: Aspirin Enteric Coated 81 MG Tablet PO SCH (07:56)
[2018-11-07] MEDS: Cholecalciferol (D-3) 1,000 UNIT TABLET PO SCH (07:57)
[2018-11-07] MEDS: Furosemide 40 MG TABLET PO SCH ×2 (07:57→16:31)
[2018-11-07] MEDS: Cefdinir 300 MG CAPSULE PO SCH ×2 (07:57→20:49)
[2018-11-07] MEDS: Folic Acid 1 MG TABLET PO SCH (07:57)
[2018-11-07] MEDS: predniSONE 20 MG TABLET PO SCH (07:57)
[2018-11-07] MEDS: Artificial Tears SOLN 15 ML BOTTLE BOTH EYES SCH ×2 (07:58→20:56)
[2018-11-07] MEDS: Baclofen 10 MG TABLET PO SCH ×4 (07:58→20:50)
[2018-11-07] MEDS: (Mirabegron [Myrbetriq] 50 MG) PO SCH (07:58)
[2018-11-07] MEDS: Insulin LISPRO 300 UNITS/3 ML VIAL SQ SCH ×3 (07:58→16:33)
[2018-11-07] MEDS: Nystatin POWDER 30 GM BOTTLE TP SCH ×3 (07:58→20:56)
[2018-11-07] MEDS: Budesonide/Formoterol 160/4.5 1 PUFF INH IH SCH ×2 (09:59→21:29)
--- NOTE | 2018-11-07 13:15 | Internal Med Progress Note ---
Hospitalist Progress Note - Encounter Date of Encounter: 11/07/18 Time of Encounter: 13:15 - Subjective Interval History: Patient lying down in bed. Feels that she is doing much better today. Remains on high flow nasal cannula with Angelo. Trying to wean down FiO2. No fever or chills reported overnight. Using BiPAP as needed. - Exam Vitals: Temp Pulse Resp BP Pulse Ox 98.5 F 60 20 135/60 96 11/07/18 11:08 11/07/18 11:08 11/07/18 11:08 11/07/18 11:08 11/07/18 11:08 Exam: General: Patient is alert, moderate distress, oriented x 3 ENT: Mucous membranes moist; Angelo NC in place Respiratory: Improved air entry in left base. Coarse breath sounds bilaterally Cardiovascular: Regular rate and rhythm. s1 and s2 normal No clicks, rubs, gallops, or murmurs. No pedal edema Abdomen: Abdomen is soft, nontender. Bowel sounds are present Skin: warm, dry, intact. Neuro: Alert oriented x 3 normal cranial nerves, no focal deficits - Assessment and Plan (1) Acute respiratory failure with hypoxia Current Visit: Yes Status: Acute Assessment and Plan: Was on BiPAP earlier this morning and has been switched to high flow nasal cannula with Angelo. Continue to wean FiO2 as tolerated. Multifactorial etiology. Underlying cancer with possible pneumonia. (2) Congestive heart failure Current Visit: Yes Status: Acute Assessment and Plan: Patient has responded well to Lasix. Currently on oral Lasix. -3 L fluid balance. Patient does have compensated/contraction metabolic alkalosis and BUN slightly trending upwards. We will continue to monitor renal function closely. (3) COPD exacerbation Current Visit: Yes Status: Acute Assessment and Plan: Continue bronchodilators. Continue to taper steroids. (4) Diabetes Current Visit: Yes Status: Chronic Assessment and Plan: Continue current insulin regimen. Levemir 10 units subcutaneous daily added 2 days back. Blood sugars have improved since then. As we decrease prednisone dosage, I expect further decrease in blood sugars. (5) Hypertension Current Visit: Yes Status: Chronic Assessment and Plan: Blood pressure is well controlled (6) Dyslipidemia Current Visit: Yes Status: Acute (7) New onset atrial fibrillation Current Visit: Yes Status: Acute Assessment and Plan: Rate controlled. Resumed Coumadin after thoracentesis completed yesterday. Continue Betapace and Cardizem. - Time Spent with Patient Total time spent is greater than 50% in coordination of care (as documented) at patient's floor/unit and/or counseling patient: Internal Medicine: Result - Labs CBC & Chem 7: 11/07/18 04:25 11/07/18 04:25 Labs: Short CBC 11/07/18 Range/Units 04:25 WBC 8.5 (4.3-11.1) K/mcL Hgb 10.8 L (11.5-15.4) g/dL Hct 34.4 L (35.3-44.9) % Plt Count 274 (140-400) K/mcL Neutrophils # 5.3 (1.6-8.9) K/mcL BMP 11/07/18 04:25 Sodium 143 Potassium 4.2 Chloride 91 L Carbon Dioxide > 45 H* BUN 26 H Creatinine 0.44 L Glucose 112 H Calcium 8.8 - ABG Interpretation ABG results: ABG ABG pH 7.32 pH Units (7.32-7.45) 11/04/18 04:41 ABG pCO2 91 mmHg (35-45) H* 11/04/18 04:41 ABG pO2 135 mmHg (85-104) H 11/04/18 04:41 ABG O2 Saturation 99 % (95-98) H 11/04/18 04:41 PT/INR, D-dimer PT 11.9 Seconds (9.4-12.1) 11/07/18 04:25 - Impressions Impressions Thoracentesis 11/06/18 07:08 IMPRESSION: Successful ultrasound guided thoracentesis. D/ / Dallas Thomas MD / Dallas Thomas MD Interpreting Provider: Dallas Thomas MD Consult Discharge Plan - Plan Referrals: NONE,PCP [Primary Care Provider] - (2) Congestive heart failure Qualifiers: Heart failure type: diastolic Heart failure chronicity: acute Qualified Code(s): I50.31 - Acute diastolic (congestive) heart failure (4) Diabetes Qualifiers: Diabetes mellitus type: type 2 Diabetes mellitus intermodal truck driver insulin use: without senior living use Diabetes mellitus complication status: without complication Qualified Code(s): E11.9 - Type 2 diabetes mellitus without complications (5) Hypertension Qualifiers: Hypertension type: essential hypertension Qualified Code(s): I10 - Essential (primary) hypertension
--- NOTE | 2018-11-07 16:28 | Event Note ---
Date of Encounter: 11/07/18 Time of Encounter: 16:20 Patient resp status/oxygenation improved today and tolerated high flow nasal cannula currently at 6LPM. Patient's daughter n law unable to come to hospital today - her mother is actually in room with patient. Patient is interested in having hospice participate in her care when goes back to [facility]. Gave my number for Muna to call, as not sure which agency she desires to use. Patient states she knows some of the [facility] hospice staff and they may stay with that agency. Will f/u in am.
[2018-11-07 17:58] LABS: Fluid Source for Albumin PLEURAL FLUID
[2018-11-07] MEDS ORDERED: Enoxaparin Weight Dosing SQ SCH (18:00)
[2018-11-07] MEDS ORDERED: *HR* Warfarin 2.5 MG TABLET PO ONE (18:00)
[2018-11-08] MEDS: Levalbuterol Neb 0.63 MG/3 ML IH SCH ×4 (03:26→22:07)
[2018-11-08 07:08] LABS: INR 1.2; Prothrombin Time 13.2 Seconds (9.4-12.1)
[2018-11-08] MEDS: Doxycycline 100 MG CAPSULE PO SCH ×2 (08:40→20:37)
[2018-11-08] MEDS: Fenofibrate 54 MG TABLET PO SCH (08:40)
[2018-11-08] MEDS: predniSONE 20 MG TABLET PO SCH (08:41)
[2018-11-08] MEDS: Diltiazem CD (24hr) 180 MG CAPSULE PO SCH (08:41)
[2018-11-08] MEDS: Furosemide 40 MG TABLET PO SCH ×2 (08:41→16:46)
[2018-11-08] MEDS: Baclofen 10 MG TABLET PO SCH ×4 (08:41→20:37)
[2018-11-08] MEDS: Cefdinir 300 MG CAPSULE PO SCH ×2 (08:41→20:37)
[2018-11-08] MEDS: Cholecalciferol (D-3) 1,000 UNIT TABLET PO SCH (08:41)
[2018-11-08] MEDS: Folic Acid 1 MG TABLET PO SCH (08:41)
[2018-11-08] MEDS: Aspirin Enteric Coated 81 MG Tablet PO SCH (08:42)
[2018-11-08] MEDS: Artificial Tears SOLN 15 ML BOTTLE BOTH EYES SCH ×2 (08:44→20:45)
[2018-11-08] MEDS: Insulin LISPRO 300 UNITS/3 ML VIAL SQ SCH ×3 (08:44→16:47)
[2018-11-08] MEDS: Insulin DETEMIR 100 UNIT/ML X5UNITS SQ SCH (08:45)
[2018-11-08] MEDS: (Mirabegron [Myrbetriq] 50 MG) PO SCH (08:46)
[2018-11-08] MEDS: Nystatin POWDER 30 GM BOTTLE TP SCH ×3 (08:46→20:46)
[2018-11-08 09:00] LABS: Basophils % 0.3 %; Eosinophils # 0.1 K/mcL (0.0-0.6); Hematocrit 35.4 % (35.3-44.9); Hemoglobin 11.2 g/dL (11.5-15.4); Immature Granulocytes % 0.2 % (0-4); Lymphocytes # 1.8 K/mcL (0.6-4.6); Lymphocytes % 19.8 %; Mean Corpuscular HGB Conc 31.6 g/dL (31.6-35.5); Mean Corpuscular Hemoglobin 31.4 pg (28.0-33.3); Mean Corpuscular Volume 99.2 fL (83.0-100.0); Monocytes % 10.7 %; Neutrophils # 6.2 K/mcL (1.6-8.9); Platelet Count 277 K/mcL (140-400); Red Blood Count 3.57 M/mcL (3.82-4.97); Red Cell Distribution Width 12.2 % (11.5-14.5)
--- NOTE | 2018-11-08 10:38 | Event Note ---
Date of Encounter: 11/08/18 Time of Encounter: 10:30 Met with pt/LORI Toro. They have made a decision that when she is discharged back to [place], they desire to enroll with [facility]. D/W primary nurse Bill, Dr. Malik, and referral called to [facility]. Bipap/oxygen ordered. Will be discharged tomorrow back to [place].
[2018-11-08] MEDS: Budesonide/Formoterol 160/4.5 1 PUFF INH IH SCH ×2 (10:57→22:07)
[2018-11-08 13:41] LABS: BUN/Creatinine Ratio 47 (6-26); Blood Urea Nitrogen 26 mg/dL (8-23); Calcium 8.9 mg/dL (8.6-10.3); Carbon Dioxide 44 mEq/L (23-29); Chloride 90 mEq/L (98-107); Glucose 237 mg/dL (70-105); Osmolality,Calculated 306 (280-300); Potassium 4.3 mEq/L (3.5-5.1); Sodium 142 mEq/L (136-145); eGFR For Non-African Americans > 60 (> 60)
[2018-11-08] MEDS ORDERED: *HR* Warfarin 3 MG TABLET PO ONE (18:00)
--- NOTE | 2018-11-08 19:05 | Internal Med Progress Note ---
Hospitalist Progress Note - Encounter Date of Encounter: 11/08/18 Time of Encounter: 11:00 - Subjective Interval History: Patient presented due to acute respiratory hypoxia failure secondary to acute on chronic heart failure and COPD exacerbation in addition to left pleural effusion. Patient now awaiting placement scheduled for 11/09/18 - Exam Vitals: Temp Pulse Resp BP Pulse Ox 98.2 F 60 20 133/54 94 11/08/18 11:18 11/08/18 11:18 11/08/18 16:22 11/08/18 16:47 11/08/18 16:22 Exam: Gen.: Nonacute distress, alert and oriented 3 ENT: Mucosal membranes moist Respiratory: Lungs are clear to auscultation bilaterally without any wheezing rhonchi or rales Cardiovascular: Normal S1 and S2 regular rate rhythm no murmurs rubs or gallops Abdomen: Soft, nontender and nondistended with positive bowel sounds Extremities: No lower extremity edema Skin: Normal color - Assessment and Plan (1) Congestive heart failure Current Visit: Yes Status: Acute Assessment and Plan: Patient has responded well to Lasix. Currently on oral Lasix. (2) Acute respiratory failure with hypoxia Current Visit: Yes Status: Acute Assessment and Plan: Was on BiPAP earlier this morning and has been switched to high flow nasal cannula with Angelo. Patient now on 6 L of high flow nasal cannula (3) COPD exacerbation Current Visit: Yes Status: Acute Assessment and Plan: Continue bronchodilators. Continue to taper steroids. (4) Diabetes Current Visit: Yes Status: Chronic Assessment and Plan: Continue basal insulin with sliding scale coverage (5) Hypertension Current Visit: Yes Status: Chronic Assessment and Plan: Continue home medications (6) Dyslipidemia Current Visit: Yes Status: Acute Assessment and Plan: Continue atorvastatin (7) New onset atrial fibrillation Current Visit: Yes Status: Acute Assessment and Plan: Rate controlled. Continue Coumadin in addition to Betapace and Cardizem. - Time Spent with Patient Total time spent is greater than 50% in coordination of care (as documented) at patient's floor/unit and/or counseling patient: Internal Medicine: Result - Labs CBC & Chem 7: 11/08/18 08:42 11/08/18 13:04 Labs: Short CBC 11/08/18 Range/Units 08:42 WBC 9.1 (4.3-11.1) K/mcL Hgb 11.2 L (11.5-15.4) g/dL Hct 35.4 (35.3-44.9) % Plt Count 277 (140-400) K/mcL Neutrophils # 6.2 (1.6-8.9) K/mcL BMP 11/08/18 13:04 Sodium 142 Potassium 4.3 Chloride 90 L Carbon Dioxide 44 H* BUN 26 H Creatinine 0.55 L Glucose 237 H Calcium 8.9 - ABG Interpretation ABG results: ABG ABG pH 7.32 pH Units (7.32-7.45) 11/04/18 04:41 ABG pCO2 91 mmHg (35-45) H* 11/04/18 04:41 ABG pO2 135 mmHg (85-104) H 11/04/18 04:41 ABG O2 Saturation 99 % (95-98) H 11/04/18 04:41 PT/INR, D-dimer PT 13.2 Seconds (9.4-12.1) H 11/08/18 06:44 Consult Discharge Plan - Plan Referrals: NONE,PCP [Primary Care Provider] - (1) Congestive heart failure Qualifiers: Heart failure type: diastolic Heart failure chronicity: acute Qualified Code(s): I50.31 - Acute diastolic (congestive) heart failure (4) Diabetes Qualifiers: Diabetes mellitus type: type 2 Diabetes mellitus senior care insulin use: without rn long term care use Diabetes mellitus complication status: without complication Qualified Code(s): E11.9 - Type 2 diabetes mellitus without complications (5) Hypertension Qualifiers: Hypertension type: essential hypertension Qualified Code(s): I10 - Essential (primary) hypertension
[2018-11-09] MEDS: Levalbuterol Neb 0.63 MG/3 ML IH SCH ×2 (03:37→10:43)
[2018-11-09] MEDS: Folic Acid 1 MG TABLET PO SCH (07:56)
[2018-11-09] MEDS: Furosemide 40 MG TABLET PO SCH (07:56)
[2018-11-09] MEDS: Doxycycline 100 MG CAPSULE PO SCH (07:56)
[2018-11-09] MEDS: Cholecalciferol (D-3) 1,000 UNIT TABLET PO SCH (07:56)
[2018-11-09] MEDS: Cefdinir 300 MG CAPSULE PO SCH (07:56)
[2018-11-09] MEDS: Fenofibrate 54 MG TABLET PO SCH (07:56)
[2018-11-09] MEDS: Aspirin Enteric Coated 81 MG Tablet PO SCH (07:56)
[2018-11-09] MEDS: Diltiazem CD (24hr) 180 MG CAPSULE PO SCH (07:56)
[2018-11-09] MEDS: Baclofen 10 MG TABLET PO SCH (07:56)
[2018-11-09] MEDS: predniSONE 20 MG TABLET PO SCH (07:56)
[2018-11-09] MEDS: Nystatin POWDER 30 GM BOTTLE TP SCH (07:57)
[2018-11-09] MEDS: Artificial Tears SOLN 15 ML BOTTLE BOTH EYES SCH (08:01)
[2018-11-09] MEDS: (Mirabegron [Myrbetriq] 50 MG) PO SCH (08:02)
[2018-11-09] MEDS: Insulin DETEMIR 100 UNIT/ML X5UNITS SQ SCH (08:04)
[2018-11-09 08:05] VITALS: BP 156/66
[2018-11-09] MEDS: Insulin LISPRO 300 UNITS/3 ML VIAL SQ SCH ×2 (08:05→13:31)
[2018-11-09 08:58] LABS: INR 1.4; Prothrombin Time 15.3 Seconds (9.4-12.1)
--- NOTE | 2018-11-09 10:02 | Palliative Progress Note ---
Date of Encounter: 11/09/18 Time of Encounter: 10:00 - Assessment and plan (1) Dyspnea Current Visit: Yes Status: Acute Assessment and plan: Improved - oxygen currently at 4LPM. Utilized Bipap at , this has been ordered by [facility] for [facility]. Qualifiers: Dyspnea type: unspecified Qualified Code(s): R06.00 - Dyspnea, unspecified (2) Anxiety Current Visit: Yes Status: Acute Assessment and plan: Less anxious, has not required Lorazepam. (3) Goals of care, counseling/discussion Current Visit: Yes Status: Acute Assessment and plan: [facility] en[facility] patient. Prescriptions completed for Roxanol/Lorazepam for comfort on PRN basis for increasing symptoms of dyspnea/anxiety. D/W Dr. Malik. (4) Palliative care encounter Current Visit: Yes Status: Acute (5) Acute respiratory failure with hypoxia Current Visit: Yes Status: Acute (6) COPD exacerbation Current Visit: Yes Status: Acute (7) Congestive heart failure Current Visit: Yes Status: Acute Qualifiers: Heart failure type: diastolic Heart failure chronicity: acute Qualified Code(s): I50.31 - Acute diastolic (congestive) heart failure - Time Spent With Patient Total time spent is greater than 50% in coordination of care (as documented) at patient's floor/unit and/or counseling patient: - Subjective Interval history: Patient awake and alert, feeling well this am. Anxious to go back to [facility]. Denies pain/discomfort. Eating well. + BM yesterday. No family present. - Constitutional Vitals: Abnormal lab results WBC 12.8 K/mcL (4.3-11.1) H 10/29/18 06:54 RBC 3.57 M/mcL (3.82-4.97) L 11/08/18 08:42 Hgb 11.2 g/dL (11.5-15.4) L 11/08/18 08:42 Hct 34.4 % (35.3-44.9) L 11/07/18 04:25 MCV 100.5 fL (83.0-100.0) H 11/03/18 07:58 MCHC 31.4 g/dL (31.6-35.5) L 11/07/18 04:25 MPV 9.1 fL (9.4-12.4) L 11/05/18 03:20 10.2 K/mcL (1.6-8.9) H 10/29/18 06:54 PT 15.3 Seconds (9.4-12.1) H 11/09/18 08:19 INR 4.4 H* 11/04/18 03:06 ABG pH 7.28 pH Units (7.32-7.45) L 11/02/18 18:44 ABG pCO2 91 mmHg (35-45) H* 11/04/18 04:41 ABG pO2 135 mmHg (85-104) H 11/04/18 04:41 ABG HCO3 47 mEq/L (21-27) H 11/04/18 04:41 ABG Total CO2 50 mEq/L (20-26) H 11/04/18 04:41 ABG O2 Saturation 99 % (95-98) H 11/04/18 04:41 ABG Base Excess 17 mEq/L (-2 to 3) H 11/04/18 04:41 VBG pCO2 73 mmHg (41-51) H* 10/31/18 16:57 VBG pO2 196 mmHg (25-50) H 10/31/18 16:57 VBG HCO3 44 mEq/L (21-27) H 10/31/18 16:57 Sodium 135 mEq/L (136-145) L 11/04/18 03:06 Chloride 90 mEq/L (98-107) L 11/08/18 13:04 Carbon Dioxide 44 mEq/L (23-29) H* 11/08/18 13:04 BUN 26 mg/dL (8-23) H 11/08/18 13:04 0.55 mg/dL (0.60-1.20) L 11/08/18 13:04 47 (6-26) H 11/08/18 13:04 Glucose 237 mg/dL (70-105) H 11/08/18 13:04 POC Glucose 205 mg/dL (70-99) H 11/08/18 19:34 6.4 % (-5.6) H 10/28/18 09:21 306 (280-300) H 11/08/18 13:04 Calcium 8.4 mg/dL (8.6-10.3) L 11/04/18 03:06 0.2 mg/dL (0.3-1.0) L 10/28/18 09:21 B-Natriuretic Peptide 216 pg/mL (Less than 100) H 11/04/18 12:18 Pleural Appearance Bloody (Clear) A 11/06/18 08:52 Pleural RBC 0.027 M/mcL (0.000-0.002) H 11/06/18 08:52 General appearance: Present: no acute distress - Respiratory Respiratory exam: Present: decreased breath sounds, CTAB - Cardiovascular Cardiovascular exam: Present: +S1, +S2 - GI/Abdominal GI/Abdominal exam: Present: normal bowel sounds, soft - Extremities Exam Additional comments: 1+ bilateral lower extremity edema - Neurological Exam Neurological exam: Present: alert, oriented X3, strengths equal and symetr throughout - Skin Skin exam: Present: dry, pallor, warm Palliative Quality Palliative Quality: Screen for Code Status: Yes, Screen for Goals of Care: Yes, Screen for Pain: Yes, If Pain Regimen Started, Initiate Bowel Regimen: NA, Screen for Nausea/Vomitting: Yes Code Status: 10/28/18 07:13 Resuscitation Status: Active [RES] Routine Comment: Resuscitation Status: Full Code 10/29/18 10:40 CODE [Resuscitation Status: Active] [RES] Routine Comment: Resuscitation Status: DNR-Comfort Care-Arrest 11/02/18 15:55 DNR [Resuscitation Status: Active] [RES] Routine Comment: Resuscitation Status: [id number] - Labs CBC & Chem 7: 11/08/18 08:42 11/08/18 13:04 Labs: Laboratory Results - last 24 hr 11/06/18 11/08/18 11/08/18 08:52 07:04 11:27 PT INR Sodium Potassium Chloride Carbon Dioxide BUN Creatinine Est GFR ( Amer) Est GFR (Non-Af Amer) BUN/Creatinine Ratio Glucose POC Glucose 150 H 197 H Calculated Osmolality Calcium Fluid Albumin Source PLEURAL FLUID Fluid Albumin 1600 11/08/18 11/08/18 11/08/18 13:04 16:49 19:34 PT INR Sodium 142 Potassium 4.3 Chloride 90 L Carbon Dioxide 44 H* BUN 26 H Creatinine 0.55 L Est GFR ( Amer) > 60 Est GFR (Non-Af Amer) > 60 BUN/Creatinine Ratio 47 H Glucose 237 H POC Glucose 200 H 205 H Calculated Osmolality 306 H Calcium 8.9 Fluid Albumin Source Fluid Albumin 11/09/18 08:19 PT 15.3 H INR 1.4 Sodium Potassium Chloride Carbon Dioxide BUN Creatinine Est GFR ( Amer) Est GFR (Non-Af Amer) BUN/Creatinine Ratio Glucose POC Glucose Calculated Osmolality Calcium Fluid Albumin Source Fluid Albumin - ABG Interpretation ABG results: ABG ABG pH 7.32 pH Units (7.32-7.45) 11/04/18 04:41 ABG pCO2 91 mmHg (35-45) H* 11/04/18 04:41 ABG pO2 135 mmHg (85-104) H 11/04/18 04:41 ABG O2 Saturation 99 % (95-98) H 11/04/18 04:41 PT/INR, D-dimer PT 15.3 Seconds (9.4-12.1) H 11/09/18 08:19 Palliative Scale - Palliative Performance Scale How ambulatory is this patient?: Mainly sit / lie What is patient's level of activity and evidence of disease?: Unable normal job/work, Significant disease How much self-care assistance does patient require?: Mainly assistance How much oral intake does the patient have?: Normal or reduced What is this patient's level of consciousness?: Full or confusion Palliative Performance Score: 60 % Consult Discharge Plan - Plan Referrals: NONE,PCP [Primary Care Provider] -
[2018-11-09] MEDS: Budesonide/Formoterol 160/4.5 1 PUFF INH IH SCH (10:43)
--- NOTE | 2018-11-09 12:28 | Discharge Summary ---
Orders not resulted at time of discharge: Pending orders 11/10/18 04:00 INR/PT [Prothrombin Time INR] [COAG] AM 0400 Date of Encounter: 11/09/18 Time of Encounter: 11:00 - Discharge Diagnosis (1) Congestive heart failure Priority: Primary Status: Acute Qualifiers: Heart failure type: diastolic Heart failure chronicity: acute Qualified Code(s): I50.31 - Acute diastolic (congestive) heart failure (2) Acute respiratory failure with hypoxia Priority: Primary Status: Acute (3) COPD exacerbation Priority: Primary Status: Acute (4) Diabetes Priority: Secondary Status: Chronic Qualifiers: Diabetes mellitus type: type 2 Diabetes mellitus termite treater insulin use: without termite treater use Diabetes mellitus complication status: without complication Qualified Code(s): E11.9 - Type 2 diabetes mellitus without complications (5) Hypertension Priority: Secondary Status: Chronic Qualifiers: Hypertension type: essential hypertension Qualified Code(s): I10 - Essential (primary) hypertension (6) Dyslipidemia Priority: Secondary Status: Acute (7) New onset atrial fibrillation Priority: Primary Status: Acute Hospital course: Patient is a 72-year-old female with past medical history significant for CHF, COPD, diabetes, CVA, hypertension presenting with complaints of shortness of breath. [facility] staff took her oxygen saturation and noted it was in the 70s. They put her on 3L of oxygen and could only get her sats up to 85% and therefore sent her to the ER. In the ER, she had a chest x-ray done showing pulmonary edema and she was given one dose of lasix and is being admitted for further management. Patients hospital stay, her respiratory status improved with treatment of acute on chronic diastolic heart failure with diuresis. Patient was also treated for COPD exacerbation. In addition patient also status post thoracentesis for left pleural effusion. Patient is clinically stable and will be discharged to [facility]. - Time Spent with Patient Total time spent providing and/or coordinating discharge services: Time spent: Less than 30 minutes - Discharge Medications Prescriptions: New LORazepam Oral Conc [Ativan Oral Conc] 0.5 mg PO Q4H PRN 14 Days #30 mls PRN Reason: Anxiety MORPHINE SUL Oral CONC [Roxanol Oral Conc] 5 mg SL Q4H PRN 14 Days #30 oral.syg PRN Reason: dyspnea/pain Sotalol [Betapace] 80 mg PO Q12H tablet Diltiazem CD (24hr) [Cardizem CD] 180 mg PO DAILY cap.er.24h Doxycycline 100 mg PO BID capsule Atorvastatin [Lipitor] 40 mg PO DAILY tablet Nystatin POWDER [Nystop] 1 appl TP TID bottle Cefdinir [Omnicef] 300 mg PO BID capsule Continued Potassium Chloride [K-Tab ER] 20 meq PO DAILY Phenytoin Sodium Extended [Phenytek] 400 mg PO HS Folic Acid 1 mg PO DAILY Fenofibrate Nanocrystallized [Fenofibrate] 160 mg PO DAILY metFORMIN [Glucophage] 2,000 mg PO 0800 dilTIAZem HCl [Diltiazem 24Hr Cd] 180 mg PO DAILY Clopidogrel [Plavix] 75 mg PO DAILY Baclofen [Lioresal] 10 mg PO QID Furosemide [Lasix] 20 mg PO DAILY Furosemide [Lasix] 40 mg PO DAILY Dextromethorphan HBr/Quinidine [Nuedexta 20-10 mg Capsule] 1 each PO BID Mirabegron [Myrbetriq] 50 mg PO DAILY Metoprolol Succinate [[place]ap[place] Sprinkle] 100 mg PO DAILY Pantoprazole Sodium 20 mg PO HS Calcium Carbonate/Magnesium Ox [Oyster Shell Calcium-Magnes Tb] 1 each PO BID Glucagon,Human Recombinant [Glucagen] 1 mg IJ PRN PRN PRN Reason: Hypoglycemia Chlorpheniramine/Dextromethorp [Coricidin Hbp Cough & Cold Tab] 1 each PO Q4H PRN PRN Reason: Cough Oxybutynin Chloride [Ditropan Xl] 5 mg PO DAILY Melatonin 5 mg PO HS PRN PRN Reason: Insomnia Cholecalciferol (Vitamin D3) [Vitamin D3] 50,000 unit PO DAILY Sennosides [Senna] 8.6 mg PO DAILY PRN PRN Reason: Constipation [place]-3/Dha/Epa/Fish Oil [Cvs Fish Oil 1,000 mg Softgel] 1 each PO DAILY MOM Conc [MILK OF MAGNESIA conc] 30 ml PO DAILY PRN PRN Reason: Constipation Magnesium Hydroxide/Al Hydrox [Mag-Al Liquid] 30 ml PO DAILY PRN PRN Reason: Nausea Acetaminophen [Pain Relief] 650 mg PO Q4H PRN PRN Reason: Pain Atorvastatin [Lipitor] 40 mg PO HS Aspirin [Adult Aspirin] 81 mg PO DAILY Amlodipine Besylate/Benazepril [Lotrel 10-20 mg Capsule] 1 each PO DAILY OxyCODONE/APAP 5/325 [Percocet 5/325 MG] 1 each PO BID 3 Days #6 tablet Home Medications: Acetaminophen [Pain Relief] 650 mg PO Q4H PRN 10/28/18 [History] Amlodipine Besylate/Benazepril [Lotrel 10-20 mg Capsule] 1 each PO DAILY 10/28/18 [History] Aspirin [Adult Aspirin] 81 mg PO DAILY 10/28/18 [History] Atorvastatin [Lipitor] 40 mg PO HS 10/28/18 [History] Baclofen [Lioresal] 10 mg PO QID 10/28/18 [History] Calcium Carbonate/Magnesium Ox [Oyster Shell Calcium-Magnes Tb] 1 each PO BID 10/28/18 [History] Chlorpheniramine/Dextromethorp [Coricidin Hbp Cough & Cold Tab] 1 each PO Q4H PRN 10/28/18 [History] Cholecalciferol (Vitamin D3) [Vitamin D3] 50,000 unit PO DAILY 10/28/18 [Hi story] Clopidogrel [Plavix] 75 mg PO DAILY 10/28/18 [History] Dextromethorphan HBr/Quinidine [Nuedexta 20-10 mg Capsule] 1 each PO BID 10/28/18 [History] Fenofibrate Nanocrystallized [Fenofibrate] 160 mg PO DAILY 10/28/18 [History] Folic Acid 1 mg PO DAILY 10/28/18 [History] Furosemide [Lasix] 20 mg PO DAILY 10/28/18 [History] Furosemide [Lasix] 40 mg PO DAILY 10/28/18 [History] Glucagon,Human Recombinant [Glucagen] 1 mg IJ PRN PRN 10/28/18 [History] MOM Conc [MILK OF MAGNESIA conc] 30 ml PO DAILY PRN 10/28/18 [History] Magnesium Hydroxide/Al Hydrox [Mag-Al Liquid] 30 ml PO DAILY PRN 10/28/18 [History] Melatonin 5 mg PO HS PRN 10/28/18 [History] Metoprolol Succinate [Kapspargo Sprinkle] 100 mg PO DAILY 10/28/18 [History] Mirabegron [Myrbetriq] 50 mg PO DAILY 10/28/18 [History] [place]-3/Dha/Epa/Fish Oil [Cvs Fish Oil 1,000 mg Softgel] 1 each PO DAILY 10/28/18 [History] Oxybutynin Chloride [Ditropan Xl] 5 mg PO DAILY 10/28/18 [History] Pantoprazole Sodium 20 mg PO HS 10/28/18 [History] Phenytoin Sodium Extended [Phenytek] 400 mg PO HS 10/28/18 [History] Potassium Chloride [K-Tab ER] 20 meq PO DAILY 10/28/18 [History] Sennosides [Senna] 8.6 mg PO DAILY PRN 10/28/18 [History] dilTIAZem HCl [Diltiazem 24Hr Cd] 180 mg PO DAILY 10/28/18 [History] metFORMIN [Glucophage] 2,000 mg PO 0800 10/28/18 [History] Atorvastatin [Lipitor] 40 mg PO DAILY tablet 11/09/18 [Rx] Cefdinir [Omnicef] 300 mg PO BID capsule 11/09/18 [Rx] Diltiazem CD (24hr) [Cardizem CD] 180 mg PO DAILY cap.er.24h 11/09/18 [Rx] Doxycycline 100 mg PO BID capsule 11/09/18 [Rx] LORazepam Oral Conc [Ativan Oral Conc] 0.5 mg PO Q4H PRN 14 Days #30 mls 11/09/18 [Rx] MORPHINE SUL Oral CONC [Roxanol Oral Conc] 5 mg SL Q4H PRN 14 Days #30 oral.syg 11/09/18 [Rx] Nystatin POWDER [Nystop] 1 appl TP TID bottle 11/09/18 [Rx] OxyCODONE/APAP 5/325 [Percocet 5/325 MG] 1 each PO BID 3 Days #6 tablet 11/09/18 [Rx] Sotalol [Betapace] 80 mg PO Q12H tablet 11/09/18 [Rx] Allergies/Adverse Reactions: Allergy/AdvReac Type Severity Reaction Status Date / Time heparin AdvReac Unknown See Verified 10/28/18 06:01 Comments Date of admission: 10/30/18 12:15 Primary care physician: PCP NONE Consults: 10/30/18 09:09 Consult to Cardiology [CONS] Routine Comment: Consulting Provider: Cardiology Germaine Reason for Consult: afib, CHF, pause Call Completed: Yes 11/02/18 08:05 Consult to Pulmonology [CONS] Routine Consulting Provider: Pulm Crit Care & Sleep Germaine Reason for Consult: hypercapnia, hypoxia, pul htn Call Completed: Yes 11/02/18 13:02 Consult to Palliative Care [CONS] Routine Comment: Consulting Provider: Palliative Care Germaine Reason for Consult: goals of care discussion Call Completed: Yes - Constitutional Vitals: Temp Pulse Resp BP Pulse Ox 98.0 F 58 18 156/66 92 11/09/18 08:00 11/09/18 08:00 11/09/18 10:43 11/09/18 08:00 11/09/18 10:43 Exam: Gen.: Nonacute distress, alert and oriented 3 Skin: Normal color - Patient Status Disposition: Transfer SNF Condition: Fair - Discharge Instructions Follow Up With: NONE,PCP [Primary Care Provider] -
--- NOTE | 2018-11-09 12:29 | Physician Discharge Referral ---
Extended[facility] Referral Info Institutional Level of Care: Skilled - Diagnosis (1) Congestive heart failure Status: Acute (2) Acute respiratory failure with hypoxia Status: Acute (3) COPD exacerbation Status: Acute (4) Diabetes Status: Chronic (5) Hypertension Status: Chronic (6) Dyslipidemia Status: Acute (7) New onset atrial fibrillation Status: Acute - Transfer Medications Prescriptions: LORazepam Oral Conc [Ativan Oral Conc] 0.5 mg PO Q4H PRN 14 Days #30 mls PRN Reason: Anxiety OxyCODONE/APAP 5/325 [Percocet 5/325 MG] 1 each PO BID 3 Days #6 tablet MORPHINE SUL Oral CONC [Roxanol Oral Conc] 5 mg SL Q4H PRN 14 Days #30 oral.syg PRN Reason: dyspnea/pain Home Medications: Acetaminophen [Pain Relief] 650 mg PO Q4H PRN 10/28/18 [History] Amlodipine Besylate/Benazepril [Lotrel 10-20 mg Capsule] 1 each PO DAILY 10/28/18 [History] Aspirin [Adult Aspirin] 81 mg PO DAILY 10/28/18 [History] Atorvastatin [Lipitor] 40 mg PO HS 10/28/18 [History] Baclofen [Lioresal] 10 mg PO QID 10/28/18 [History] Calcium Carbonate/Magnesium Ox [Oyster Shell Calcium-Magnes Tb] 1 each PO BID 10/28/18 [History] Chlorpheniramine/Dextromethorp [Coricidin Hbp Cough & Cold Tab] 1 each PO Q4H PRN 10/28/18 [History] Cholecalciferol (Vitamin D3) [Vitamin D3] 50,000 unit PO DAILY 10/28/18 [History] Clopidogrel [Plavix] 75 mg PO DAILY 10/28/18 [History] Dextromethorphan HBr/Quinidine [Nuedexta 20-10 mg Capsule] 1 each PO BID 10/28/18 [History] Fenofibrate Nanocrystallized [Fenofibrate] 160 mg PO DAILY 10/28/18 [History] Folic Acid 1 mg PO DAILY 10/28/18 [History] Furosemide [Lasix] 20 mg PO DAILY 10/28/18 [History] Furosemide [Lasix] 40 mg PO DAILY 10/28/18 [History] Glucagon,Human Recombinant [Glucagen] 1 mg IJ PRN PRN 10/28/18 [History] MOM Conc [MILK OF MAGNESIA conc] 30 ml PO DAILY PRN 10/28/18 [History] Magnesium Hydroxide/Al Hydrox [Mag-Al Liquid] 30 ml PO DAILY PRN 10/28/18 [History] Melatonin 5 mg PO HS PRN 10/28/18 [History] Metoprolol Succinate [Kapspargo Sprinkle] 100 mg PO DAILY 10/28/18 [History] Mirabegron [Myrbetriq] 50 mg PO DAILY 10/28/18 [History] [place]-3/Dha/Epa/Fish Oil [Cvs Fish Oil 1,000 mg Softgel] 1 each PO DAILY 10/28/18 [History] Oxybutynin Chloride [Ditropan Xl] 5 mg PO DAILY 10/28/18 [History] Pantoprazole Sodium 20 mg PO HS 10/28/18 [History] Phenytoin Sodium Extended [Phenytek] 400 mg PO HS 10/28/18 [History] Potassium Chloride [K-Tab ER] 20 meq PO DAILY 10/28/18 [History] Sennosides [Senna] 8.6 mg PO DAILY PRN 10/28/18 [History] dilTIAZem HCl [Diltiazem 24Hr Cd] 180 mg PO DAILY 10/28/18 [History] metFORMIN [Glucophage] 2,000 mg PO 0800 10/28/18 [History] Atorvastatin [Lipitor] 40 mg PO DAILY tablet 11/09/18 [Rx] Cefdinir [Omnicef] 300 mg PO BID capsule 11/09/18 [Rx] Diltiazem CD (24hr) [Cardizem CD] 180 mg PO DAILY cap.er.24h 11/09/18 [Rx] Doxycycline 100 mg PO BID capsule 11/09/18 [Rx] LORazepam Oral Conc [Ativan Oral Conc] 0.5 mg PO Q4H PRN 14 Days #30 mls 11/09/18 [Rx] MORPHINE SUL Oral CONC [Roxanol Oral Conc] 5 mg SL Q4H PRN 14 Days #30 oral.syg 11/09/18 [Rx] Nystatin POWDER [Nystop] 1 appl TP TID bottle 11/09/18 [Rx] OxyCODONE/APAP 5/325 [Percocet 5/325 MG] 1 each PO BID 3 Days #6 tablet 11/09/18 [Rx] Sotalol [Betapace] 80 mg PO Q12H tablet 11/09/18 [Rx] Allergies/Adverse Reactions: Allergy/AdvReac Type Severity Reaction Status Date / Time heparin AdvReac Unknown See Verified 10/28/18 06:01 Comments - Respiratory Orders Smoking Cessation: Smoking cessation has been advised. For more information, call the [place] Tobacco Quit Line at 2-182-NCKGNOW. CERTIFICATION: I certify that the transfer of the above named patient to an Extended Care Facility is necessary for the continuing treatment of the diagnosis listed. The above information is true and accurate reflection of patient's current condition. Confidential - Redisclosure prohibited without a patient's written consent.
[2018-11-09] MEDS ORDERED: *HR* Warfarin 3 MG TABLET PO ONE (18:00)
== END 2018-11-09 16:01 | DRG 291 ==
LOC: 2NENU 04:48 → EMEROOARM 04:48 → SUATTDRO 06:19 → 2NENU 07:55 → SUATTDRO 10-30 12:15 → 2NENU 11-03 17:58
PROVIDERS: ADMIT Internal Medicine; ATTEND Hospitalist